=== PATIENT | female | born 1990 | race American Indian/Alaskan Native ===

== ENCOUNTER 2019-07-17 13:53 | Inpatient (IN) | payer MEDICAID, OTHER ==
[2019-07-17] MEDS ORDERED: SODIUM CHLORIDE 0.9% 1000 ML 2,000 ML ONE ×2 (14:19→19:27)
[2019-07-17] MEDS ORDERED: CEFEPIME/NS 2 GM/100 ML 2 GM/100 ML BAG IV ONE (14:25)
[2019-07-17] MEDS ORDERED: VANCOMYCIN/NS 1 GM/250 ML 1 GM/250 ML BAG IV ONE (14:25)
[2019-07-17] MEDS ORDERED: SODIUM CHLORIDE 0.9% 1000 ML 1,000 ML IV ONE ×2 (14:26)
[2019-07-17] MEDS ORDERED: EPINEPHrine 1:10,000 1 MG/10 ML SYRINGE ONE (14:30)
[2019-07-17] MEDS ORDERED: DOPamine/D5W 800 MG/250 ML DRIP IV ONE (14:30)
[2019-07-17] MEDS ORDERED: SODIUM BICARBONATE 2 MEQ/2 ML SYRINGE ONE (14:30)
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
--- NOTE | 2019-07-17 15:10 | XRay Report ---
CHEST 1 VIEW INDICATION: post-intubation. COMPARISON: None FINDINGS: SUPPORT DEVICES: Endotracheal tubes in good position. Nasogastric tube appears has tip below diaphrag m. HEART / MEDIASTINUM: No significant abnormality. LUNGS / PLEURA: Bronchovascular markings are prominent. No significant pulmonary or pleural abnormali ty. No pneumothorax. ADDITIONAL FINDINGS: IMPRESSION: 1. No acute cardiopulmonary disease Signer Name: Apolinar Nielsen MD Signed: 07/17/2019 3:05 PM Workstation Name: [id number]
[2019-07-17 15:47] LABS: ABG Base Excess -4.2 mmol/L (-2.0-3.0); ABG HCO3 25.7 mmol/L (20.0-26.0); ABG Methemoglobin 0.5 % (0.0-1.5); ABG Oxygen Saturation 98.8 % (95.0-99.0); ABG PO2 174.7 mm Hg (80.0-90.0)
[2019-07-17 15:49] LABS: ABG PH 7.147 pH Units (7.350-7.450)
[2019-07-17] MEDS ORDERED: VANCOMYCIN 2,000 MG in SODIUM CHLORIDE 0.9% 500 ML 500 ML IV ONE (16:00)
[2019-07-17 16:02] LABS: Mean Corpuscular HGB Conc 29 % (30-34); Platelet Count 208 K/mm3 (140-440); Red Blood Count 5.66 M/mm3 (3.65-5.03); Red Cell Distribution Width 18.3 % (13.2-15.2)
[2019-07-17 16:16] LABS: Hematocrit 38.1 % (30.3-42.9); Hemoglobin 11.1 gm/dl (10.1-14.3); Mean Corpuscular Volume 67 fl (79-97)
[2019-07-17 16:26] LABS: Alanine Aminotransferase 57 units/L (7-56); Albumin 3.8 g/dL (3.9-5); BUN/Creatinine Ratio 13; Blood Urea Nitrogen 14 mg/dL (7-17); Calcium 8.1 mg/dL (8.4-10.2); Hemolysis Index 22
[2019-07-17] MEDS ORDERED: SODIUM CHLORIDE 0.9% 1000 ML IV SOLN IV ONE (16:26)
[2019-07-17 16:45] LABS: Bacteria,Urine 2+ /HPF (Negative); Bilirubin,Urine NEG (Negative); Blood,Urine MOD (Negative); Color,Urine Yellow (Yellow); Hyaline Casts,Urine 1 /LPF; Mucus,Urine FEW /HPF; Urobilinogen,Urine < 2.0 mg/dL (<2.0)
[2019-07-17 16:56] LABS: Anisocytosis 1+; Hypochromasia 1+; Total Cells Counted 100
--- NOTE | 2019-07-17 17:59 | Cat Scan Report ---
CT HEAD WITHOUT CONTRAST HISTORY: AMS COMPARISON: None TECHNIQUE: CT imaging of the head was performed in the axial, sagittal, and coronal projections and bone algori thm in axial projection in the soft tissue algorithm. All CT scans at this location are performed using CT dose reduction for ALARA by means of automated e xposure control. CONTRAST: None. FINDINGS: Cerebral and Cerebellar Hemispheres: No evidence of mass or mass effect. No midline shift. No acute hemorrhage. No acute cortical infarction. No extra-axial fluid collection. Ventricles: Normal in size and configuration for age. Osseous Structures: No significant abnormality. Visualized Paranasal Sinuses: No significant abnormality. Additional Findings: None IMPRESSION: 1. No acute intracranial abnormality. NOTE: Acute infarct may not be visible by noncontrast CT. Signer Name: Apolinar Nielsen MD Signed: 07/17/2019 5:55 PM Workstation Name: [id number]
--- NOTE | 2019-07-17 18:06 | Cat Scan Report ---
Exam: CT cervical spine History: fall; Technique: Contiguous thin cut axial images obtained through the cervical spine. Sagittal and herrera l reconstructions performed by the technologist. All CT scans at this location are performed using CT dose reduction for ALARA by means of automated exposure control. Findings: No priors. There is no evidence of fracture or traumatic subluxation. No vertebral compression fracture is seen. Prevertebral space is normal. In the transverse images, no fracture is seen involving the bony canal . Vertebral bodies are normal in height and alignment. Intervertebral disc spaces are well-maintained. No significant degenerative change seen in the uncinate or facet joints. No significant canal stenosi s or osseous foraminal narrowing. Surrounding soft tissues are grossly normal. Endotracheal tube and nasogastric tube are seen. Impression: No signs of acute bony trauma to the cervical spine. Signer Name: Elodia Castro MD Signed: 07/17/2019 6:01 PM Workstation Name: [id number]
--- NOTE | 2019-07-17 18:21 | Cat Scan Report ---
CTA of the chest with 3D Reconstruction Indication: ,sob Technique: TECHNIQUE: Axial CT images were obtained through the chest after injection of 100 cc of Omnipaque 350 IV contrast. 3 plane MIP reconstructions were produced. All CT scans at this location are performed using CT dose reduction for ALARA by means of automated exposure control. COMPARISON: None Automatic exposure control was utilized in an attempt to reduce radiation dose. Findings: Pulmonary arteries: The main pulmonary artery and proximal right and left pulmonary artery branches f ill satisfactorily with contrast. Distal pulmonary artery branches are not well opacified. No pulmona ry embolus is seen within the limits of this study. Lungs: There is patchy airspace consistent opacity in the upper lobes bilaterally. There is airspace consolidation in the medial lower lobes bilaterally. Endotracheal tube is in satisfactory position ra diographically. Nasogastric tube which descends into the stomach. No pneumothorax is seen. Mediastinum: Heart size is normal. No adenopathy is seen. Aorta: Normal in diameter. No dissection seen. Impression: No pulmonary embolus is seen. The aorta is normal in diameter. There is no dissection There are bilateral airspace opacities with patchy airspace opacities in the upper lung zones and con solidation in the medial lower lobes. This likely represents edema and atelectasis. Possibility of tang perimposed pneumonia is considered but felt to be less likely. Signer Name: Elmer Epperson MD Signed: 07/17/2019 6:17 PM Workstation Name: [id number]
[2019-07-17 19:25] LABS: Amphetamine Screen,Urine PRESUMPTIVE NEGATIVE; Benzodiazepines Screen,Urine PRESUMPTIVE NEGATIVE; Cocaine Screen,Urine PRESUMPTIVE NEGATIVE; Methadone Screen,Urine PRESUMPTIVE NEGATIVE; Opiate Screen,Urine PRESUMPTIVE NEGATIVE
[2019-07-17 19:36] LABS: Cannabinoid Screen,Urine PRESUMPTIVE NEGATIVE
[2019-07-17] MEDS ORDERED: KETOROLAC 30 MG/1 ML INJ IV PRN (20:19)
[2019-07-17] MEDS ORDERED: MORPHINE 2 MG/1 ML INJ IV PRN (20:19)
[2019-07-17] MEDS ORDERED: LIPASE 10,500/PROTEASE 25,000/AMYLASE 43,750 (UNITS) DR CAP FEEDTUBE PRN (20:19)
[2019-07-17] MEDS ORDERED: METOCLOPRAMIDE 10 MG/2 ML INJ IV PRN (20:19)
[2019-07-17] MEDS ORDERED: SIMPLE SYRUP 15 ML FEEDTUBE PRN ×2 (20:19)
[2019-07-17] MEDS ORDERED: DEXTROSE 50% IN WATER (25GM) 50 ML SYRINGE IV PRN (20:19)
[2019-07-17] MEDS ORDERED: ALBUTEROL 2.5 MG/3 ML NEBU IH PRN (20:19)
[2019-07-17] MEDS ORDERED: ONDANSETRON 4 MG/2 ML INJ IV PRN (20:19)
[2019-07-17] MEDS ORDERED: SODIUM BICARBONATE 325 MG TAB FEEDTUBE PRN (20:19)
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
[2019-07-17] MEDS ORDERED: hydrALAZINE 20 MG/1 ML INJ IV PRN (20:26)
[2019-07-17] MEDS ORDERED: hydrALAZINE 20 MG/1 ML INJ ONE (20:45)
[2019-07-17] MEDS ORDERED: VANCOMYCIN PHARMACY TO DOSE IV SCH (21:00)
[2019-07-17] MEDS ORDERED: HEPARIN 5,000 UNIT/1 ML VIAL SUB-Q SCH (22:00)
[2019-07-17 22:19] LABS: ABG Base Excess 1.1 mmol/L (-2.0-3.0); ABG HCO3 26.7 mmol/L (20.0-26.0); ABG Methemoglobin 0.6 % (0.0-1.5); ABG Oxygen Saturation 97.7 % (95.0-99.0); ABG PCO2 46.6 mm Hg; ABG PH 7.375 pH Units (7.350-7.450); ABG PO2 104.1 mm Hg (80.0-90.0)
[2019-07-17] MEDS: BUDESONIDE 0.5 MG/2 ML NEBU IH SCH (22:20)
[2019-07-17] MEDS: IPRATROPIUM/ALBUTEROL SULFATE 3 ML AMPUL.NEB IH SCH (22:20)
[2019-07-17] MEDS: ENOXAPARIN 40 MG/0.4 ML INJ SUB-Q SCH (23:25)
[2019-07-17] MEDS: FAMOTIDINE 20 MG/2 ML INJ IV SCH (23:25)
[2019-07-17] MEDS: methylPREDNISolone Sod Succinate 125 MG/2 ML INJ IV SCH (23:25)
[2019-07-17] MEDS: CEFEPIME/NS 2 GM/100 ML 2 GM/100 ML BAG IV SCH (23:26)
[2019-07-17] MEDS: NICOTINE 21 MG/24 HR PATCH TD SCH (23:26)
[2019-07-18] MEDS: IPRATROPIUM/ALBUTEROL SULFATE 3 ML AMPUL.NEB IH SCH ×5 (02:53→20:36)
[2019-07-18 04:16] LABS: Mean Corpuscular HGB Conc 30 % (30-34); Platelet Count 188 K/mm3 (140-440); Red Blood Count 5.68 M/mm3 (3.65-5.03); Red Cell Distribution Width 17.7 % (13.2-15.2)
[2019-07-18 04:29] LABS: Alanine Aminotransferase 45 units/L (7-56); Albumin 3.5 g/dL (3.9-5); BUN/Creatinine Ratio 13; Blood Urea Nitrogen 10 mg/dL (7-17); Calcium 7.8 mg/dL (8.4-10.2); Hemolysis Index 1
[2019-07-18 04:38] LABS: Hematocrit 37.3 % (30.3-42.9); Mean Corpuscular Volume 66 fl (79-97)
[2019-07-18 04:41] LABS: ABG Base Excess 3.1 mmol/L (-2.0-3.0); ABG HCO3 29.3 mmol/L (20.0-26.0); ABG Methemoglobin 0.6 % (0.0-1.5); ABG Oxygen Saturation 97.1 % (95.0-99.0); ABG PCO2 52.3 mm Hg; ABG PH 7.366 pH Units (7.350-7.450); ABG PO2 91.3 mm Hg (80.0-90.0)
[2019-07-18 05:18] LABS: Basophils % (Manual) 0 % (0.0-1.8); Eosinophils % (Manual) 0 % (0.0-4.3); Monocytes % (Manual) 0 % (0.0-7.3); Total Cells Counted 100
[2019-07-18 05:19] LABS: Anisocytosis 1+; Hypochromasia 1+; Platelet Estimate Consistent w Auto
[2019-07-18] MEDS: methylPREDNISolone Sod Succinate 125 MG/2 ML INJ IV SCH (05:25)
[2019-07-18] MEDS: INSULIN LISPRO 100 UNIT/ML SUB-Q SCH ×3 (07:30→18:00)
[2019-07-18] MEDS: BUDESONIDE 0.5 MG/2 ML NEBU IH SCH ×3 (07:58→20:36)
[2019-07-18] MEDS ORDERED: IPRATROPIUM/ALBUTEROL SULFATE 3 ML AMPUL.NEB IH SCH ×2 (08:00)
[2019-07-18] MEDS: VANCOMYCIN 2,000 MG in SODIUM CHLORIDE 0.9% 500 ML 500 ML IV SCH ×2 (08:33→20:00)
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
[2019-07-18] MEDS ORDERED: LORazepam 2 MG/ML VIAL IV ONE (09:17)
[2019-07-18] MEDS ORDERED: LORazepam 2 MG/ML VIAL ONE (09:18)
[2019-07-18] MEDS: FAMOTIDINE 20 MG/2 ML INJ IV SCH ×2 (09:22→21:44)
[2019-07-18] MEDS ORDERED: LORazepam 2 MG/ML VIAL IV PRN (10:01)
[2019-07-18] MEDS: NICOTINE 21 MG/24 HR PATCH TD SCH (10:27)
[2019-07-18] MEDS: niCARdipine 50 MG in SODIUM CHLORIDE 0.9% 250ML 230 ML IV SCH ×2 (11:56→23:16)
--- NOTE | 2019-07-18 13:35 | Electroencephalogram Report ---
Electroencephalogram EEG Date of exam: 07/18/19 History: Patient is a 29-year-old woman with a history of asthma, who was found at unresponsive at home with agonal respirations. Patient was seen by EMS and transferred to [facility], after which she had a cardiac arrest for 10 minutes prior to returning to spontaneous circulation. Description: DESCRIPTION OF THE PROCEDURE: Electrodes were applied using Paste technique in positions dictated by International 10-20 system of placement. In addition to EEG data EKG and eye movements were recorded. DESCRIPTION OF ACTIVITY: At the onset of this recording, the patient is lying supine. In the background we note a 4-5 Hz delta and theta activity that has an amplitude ranging 20-30uV. Additional low voltage rhythmic delta activity occurs at the anterior head regions bilaterally. There are no asymmetries in amplitude or frequency between hemispheres. Patient noted to have intermittent facial jerking movements during EEG, however this did not correlate with any evidence of electrographic seizures. Intermittent photic stimulation was not performed. Hyperventilation was not performed. EEG Impression: 1) Generalized slowing. 2) No seizures or epileptiform discharges 3) Patient noted to have intermittent mild jerking movements of the face, however this did not correlate with any electrographic seizures, and is more likely due to myoclonus post anoxic brain injury. CLINICAL INTERPRETATION: This routine video EEG, performed is abnormal secondary to above findings and is consistent with bi-hemispheric dysfunction and encephalopathy. The above described finding of diffuse slowing is etiologically non-specific and similar findings have been reported in cases of toxic, metabolic, hypoxic ischemic, infectious, medication, sleep deprivation, dementia, post-ictal state, and other causes of diffuse and multifocal encephalopathy.
[2019-07-18] MEDS ORDERED: ETOMIDATE 20 MG/10 ML INJ IV ONE (13:38)
[2019-07-18] MEDS ORDERED: SUCCINYLCHOLINE CHLORIDE 200 MG/10 ML INJ MDV ONE (13:38)
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
[2019-07-18] MEDS ORDERED: levETIRAcetam 1,000 MG in DEXTROSE 5% IN WATER 100 ML IV SCH ×2 (13:45→22:00)
[2019-07-18] MEDS: VALSARTAN 40 MG TAB PO SCH ×2 (13:50→21:43)
--- NOTE | 2019-07-18 14:08 | XRay Report ---
ABDOMEN 1 VIEW(S) INDICATION / CLINICAL INFORMATION: gastric tube placement. COMPARISON: None available. FINDINGS: TUBES / LINES: The tip of the NG tube projects over the body the stomach. BOWEL GAS PATTERN/EXTRALUMINAL GAS: No significant abnormality. No pneumatosis or secondary signs of free air. ADDITIONAL FINDINGS: No significant additional findings. IMPRESSION: 1. NG tube tip projects over the body of the stomach. Signer Name: Garcia Giraldo MD Signed: 07/18/2019 2:04 PM Workstation Name: [email or web address]
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
[2019-07-18] MEDS: CEFEPIME/NS 2 GM/100 ML 2 GM/100 ML BAG IV SCH ×3 (14:29→21:41)
[2019-07-18] MEDS: levETIRAcetam 1,000 MG in DEXTROSE 5% IN WATER 100 ML IV SCH ×2 (17:00→23:02)
[2019-07-18] MEDS: SODIUM CHLORIDE 0.9% 1000 ML 1,000 ML IV SCH (18:00)
[2019-07-18] MEDS: ENOXAPARIN 40 MG/0.4 ML INJ SUB-Q SCH (21:42)
[2019-07-19] MEDS ORDERED: LORazepam 2 MG/ML VIAL IV ONE (00:50)
[2019-07-19] MEDS: IPRATROPIUM/ALBUTEROL SULFATE 3 ML AMPUL.NEB IH SCH ×4 (02:07→20:08)
[2019-07-19 05:31] LABS: ABG Base Excess 3.8 mmol/L (-2.0-3.0); ABG HCO3 28.1 mmol/L (20.0-26.0); ABG Methemoglobin 0.5 % (0.0-1.5); ABG PCO2 41.3 mm Hg; ABG PH 7.451 pH Units (7.350-7.450); ABG PO2 75.6 mm Hg (80.0-90.0)
[2019-07-19] MEDS: CEFEPIME/NS 2 GM/100 ML 2 GM/100 ML BAG IV SCH (05:40)
[2019-07-19] MEDS: niCARdipine 50 MG in SODIUM CHLORIDE 0.9% 250ML 230 ML IV SCH (06:24)
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
[2019-07-19] MEDS: INSULIN LISPRO 100 UNIT/ML SUB-Q SCH ×4 (07:11→18:00)
[2019-07-19] MEDS: BUDESONIDE 0.5 MG/2 ML NEBU IH SCH ×2 (07:45→20:08)
[2019-07-19] MEDS: VANCOMYCIN 2,000 MG in SODIUM CHLORIDE 0.9% 500 ML 500 ML IV SCH (08:22)
[2019-07-19] MEDS: SODIUM CHLORIDE 0.9% 1000 ML 1,000 ML IV SCH (08:22)
[2019-07-19] MEDS: FAMOTIDINE 20 MG/2 ML INJ IV SCH ×2 (09:01→21:16)
[2019-07-19] MEDS: NICOTINE 21 MG/24 HR PATCH TD SCH (09:01)
--- NOTE | 2019-07-19 09:43 | XRay Report ---
ABDOMEN 1 VIEW(S) INDICATION / CLINICAL INFORMATION: ogt placement. COMPARISON: None available. FINDINGS: TUBES / LINES: Esophagogastric tube tip projects at the level of the body of the stomach. BOWEL GAS PATTERN/EXTRALUMINAL GAS: No significant abnormality. No pneumatosis or secondary signs of free air. ADDITIONAL FINDINGS: No significant additional findings. IMPRESSION: 1. No acute abnormality. Signer Name: Elmer Epperson MD Signed: 07/19/2019 9:38 AM Workstation Name: [id number]
--- NOTE | 2019-07-19 09:57 | Progress Note ---
Assessment and Plan 29 y/o female with cardiac arrest, asystole, exact etiology unknown now on vent support. 1. Stop all sedation 2. Attempt extubation when mental status allows. 3. Stop steroids 4. Neurology saw and I appreciate their recs. 5. Guarded prognosis CCt 31 minutes. Subjective Date of service: 07/19/19 Interval history: No acute events. Eyes open today. Still not tracking, still not following commands. No family present at the bedside. Getting IV access placed. To large for MRI table. Objective Vital Signs - 12hr 07/18/19 07/18/19 07/18/19 22:00 22:11 22:21 Temperature Pulse Rate 107 H 121 H 125 H Pulse Rate [ Anterior Bilateral Throughout] Respiratory 21 25 H 26 H Rate Respiratory Rate [Anterior Bilateral Throughout] Blood Pressure 165/105 165/105 172/114 O2 Sat by Pulse 99 98 Oximetry 07/18/19 07/18/19 07/18/19 22:30 22:41 22:51 Temperature Pulse Rate 125 H 124 H 126 H Pulse Rate [ Anterior Bilateral Throughout] Respiratory 28 H 22 27 H Rate Respiratory Rate [Anterior Bilateral Throughout] Blood Pressure 165/108 165/108 170/110 O2 Sat by Pulse 97 99 98 Oximetry 07/18/19 07/18/19 07/18/19 23:00 23:11 23:21 Temperature Pulse Rate 131 H 129 H 134 H Pulse Rate [ Anterior Bilateral Throughout] Respiratory 31 H 31 H 37 H Rate Respiratory Rate [Anterior Bilateral Throughout] Blood Pressure 179/111 179/111 167/115 O2 Sat by Pulse 97 98 97 Oximetry 07/18/19 07/18/19 07/18/19 23:30 23:41 23:43 Temperature 99.2 F Pulse Rate 138 H 141 H Pulse Rate [ Anterior Bilateral Throughout] Respiratory 31 H 30 H Rate Respiratory Rate [Anterior Bilateral Throughout] Blood Pressure 169/93 169/93 O2 Sat by Pulse 97 98 Oximetry 07/18/19 07/19/19 07/19/19 23:51 00:00 00:01 Temperature Pulse Rate 134 H 139 H 125 H Pulse Rate [ Anterior Bilateral Throughout] Respiratory 29 H 24 Rate Respiratory Rate [Anterior Bilateral Throughout] Blood Pressure 175/97 131/62 O2 Sat by Pulse 98 95 Oximetry 07/19/19 07/19/19 07/19/19 00:11 00:21 00:30 Temperature Pulse Rate 135 H 137 H 140 H Pulse Rate [ Anterior Bilateral Throughout] Respiratory 25 H 9 L 15 Rate Respiratory Rate [Anterior Bilateral Throughout] Blood Pressure 131/62 177/84 174/90 O2 Sat by Pulse 98 98 97 Oximetry 07/19/19 07/19/19 07/19/19 00:35 00:41 00:51 Temperature Pulse Rate 140 H 141 H 142 H Pulse Rate [ Anterior Bilateral Throughout] Respiratory 20 17 Rate Respiratory Rate [Anterior Bilateral Throughout] Blood Pressure 174/90 174/90 166/90 O2 Sat by Pulse 98 96 98 Oximetry 07/19/19 07/19/19 07/19/19 01:00 01:11 01:21 Temperature Pulse Rate 141 H 130 H 137 H Pulse Rate [ Anterior Bilateral Throughout] Respiratory 16 23 20 Rate Respiratory Rate [Anterior Bilateral Throughout] Blood Pressure 161/101 161/101 131/67 O2 Sat by Pulse 94 97 97 Oximetry 07/19/19 07/19/19 07/19/19 01:30 01:41 01:51 Temperature Pulse Rate 118 H 116 H 116 H Pulse Rate [ Anterior Bilateral Throughout] Respiratory 20 24 24 Rate Respiratory Rate [Anterior Bilateral Throughout] Blood Pressure 117/55 117/55 115/59 O2 Sat by Pulse 95 97 98 Oximetry 07/19/19 07/19/19 07/19/19 02:00 02:07 02:11 Temperature Pulse Rate 114 H 131 H Pulse Rate [ 129 H Anterior Bilateral Throughout] Respiratory 24 12 Rate Respiratory 24 Rate [Anterior Bilateral Throughout] Blood Pressure 117/57 115/59 O2 Sat by Pulse 95 95 Oximetry 07/19/19 07/19/19 07/19/19 02:21 02:30 02:41 Temperature Pulse Rate 119 H 115 H 115 H Pulse Rate [ Anterior Bilateral Throughout] Respiratory 24 24 24 Rate Respiratory Rate [Anterior Bilateral Throughout] Blood Pressure 123/64 109/64 109/64 O2 Sat by Pulse 97 98 98 Oximetry 07/19/19 07/19/19 07/19/19 02:51 02:59 03:00 Temperature 99.3 F Pulse Rate 114 H 116 H Pulse Rate [ Anterior Bilateral Throughout] Respiratory 24 24 Rate Respiratory Rate [Anterior Bilateral Throughout] Blood Pressure 121/73 123/71 O2 Sat by Pulse 98 99 Oximetry 07/19/19 07/19/19 07/19/19 03:11 03:21 03:30 Temperature Pulse Rate 115 H 115 H 113 H Pulse Rate [ Anterior Bilateral Throughout] Respiratory 24 24 24 Rate Respiratory Rate [Anterior Bilateral Throughout] Blood Pressure 123/71 120/74 120/71 O2 Sat by Pulse 99 100 Oximetry 07/19/19 07/19/19 07/19/19 03:41 03:51 04:00 Temperature Pulse Rate 115 H 116 H 139 H Pulse Rate [ Anterior Bilateral Throughout] Respiratory 24 24 Rate Respiratory Rate [Anterior Bilateral Throughout] Blood Pressure 120/71 121/73 O2 Sat by Pulse 98 98 Oximetry 07/19/19 07/19/19 07/19/19 04:01 04:11 04:21 Temperature Pulse Rate 129 H 117 H 116 H Pulse Rate [ Anterior Bilateral Throughout] Respiratory 19 24 24 Rate Respiratory Rate [Anterior Bilateral Throughout] Blood Pressure 144/98 144/98 135/91 O2 Sat by Pulse 96 97 97 Oximetry 07/19/19 07/19/19 07/19/19 04:30 04:33 04:41 Temperature Pulse Rate 113 H 116 H 118 H Pulse Rate [ Anterior Bilateral Throughout] Respiratory 24 24 Rate Respiratory Rate [Anterior Bilateral Throughout] Blood Pressure 121/75 121/75 135/91 O2 Sat by Pulse 97 99 98 Oximetry 07/19/19 07/19/19 07/19/19 04:50 05:00 05:11 Temperature Pulse Rate 117 H 116 H 117 H Pulse Rate [ Anterior Bilateral Throughout] Respiratory 24 14 24 Rate Respiratory Rate [Anterior Bilateral Throughout] Blood Pressure 121/75 122/73 124/74 O2 Sat by Pulse 98 96 98 Oximetry 07/19/19 07/19/19 07/19/19 05:21 05:31 05:41 Temperature Pulse Rate 114 H 132 H 135 H Pulse Rate [ Anterior Bilateral Throughout] Respiratory 24 14 26 H Rate Respiratory Rate [Anterior Bilateral Throughout] Blood Pressure 122/76 148/103 122/76 O2 Sat by Pulse 98 94 97 Oximetry 07/19/19 07/19/19 07/19/19 05:51 06:00 06:11 Temperature Pulse Rate 133 H 136 H 137 H Pulse Rate [ Anterior Bilateral Throughout] Respiratory Rate Respiratory Rate [Anterior Bilateral Throughout] Blood Pressure 163/94 158/95 148/103 O2 Sat by Pulse 97 96 98 Oximetry 07/19/19 07/19/19 07/19/19 06:21 06:30 06:41 Temperature Pulse Rate 138 H 136 H 139 H Pulse Rate [ Anterior Bilateral Throughout] Respiratory Rate Respiratory Rate [Anterior Bilateral Throughout] Blood Pressure 163/88 166/106 166/106 O2 Sat by Pulse 98 96 98 Oximetry 07/19/19 07/19/19 07/19/19 06:51 07:01 07:11 Temperature Pulse Rate 137 H 133 H 136 H Pulse Rate [ Anterior Bilateral Throughout] Respiratory Rate Respiratory Rate [Anterior Bilateral Throughout] Blood Pressure 141/79 148/82 148/82 O2 Sat by Pulse 97 96 97 Oximetry 07/19/19 07/19/19 07/19/19 07:21 07:31 07:41 Temperature Pulse Rate 138 H 137 H 140 H Pulse Rate [ Anterior Bilateral Throughout] Respiratory Rate Respiratory Rate [Anterior Bilateral Throughout] Blood Pressure 149/113 159/111 149/113 O2 Sat by Pulse 97 98 97 Oximetry 07/19/19 07/19/19 07/19/19 07:45 07:51 08:00 Temperature 100.0 F H Pulse Rate 130 H 139 H 120 H Pulse Rate [ 126 H Anterior Bilateral Throughout] Respiratory Rate Respiratory 33 H Rate [Anterior Bilateral Throughout] Blood Pressure 170/96 170/96 132/64 O2 Sat by Pulse 98 98 98 Oximetry 07/19/19 07/19/19 07/19/19 08:11 08:21 08:30 Temperature Pulse Rate 138 H 140 H 141 H Pulse Rate [ Anterior Bilateral Throughout] Respiratory Rate Respiratory Rate [Anterior Bilateral Throughout] Blood Pressure 159/111 151/95 131/106 O2 Sat by Pulse 96 96 95 Oximetry 07/19/19 07/19/19 07/19/19 08:41 08:51 09:01 Temperature Pulse Rate 141 H 139 H 139 H Pulse Rate [ Anterior Bilateral Throughout] Respiratory Rate Respiratory Rate [Anterior Bilateral Throughout] Blood Pressure 131/106 131/106 131/106 O2 Sat by Pulse Oximetry 07/19/19 07/19/19 07/19/19 09:11 09:21 09:30 Temperature Pulse Rate 139 H 132 H 135 H Pulse Rate [ Anterior Bilateral Throughout] Respiratory Rate Respiratory Rate [Anterior Bilateral Throughout] Blood Pressure 131/106 151/93 148/97 O2 Sat by Pulse Oximetry 07/19/19 09:41 Temperature Pulse Rate 136 H Pulse Rate [ Anterior Bilateral Throughout] Respiratory Rate Respiratory Rate [Anterior Bilateral Throughout] Blood Pressure 148/97 O2 Sat by Pulse Oximetry Constitutional: comatose Eyes: non-icteric ENT: other (orally intubated and sedated.) Neck: supple Effort: normal Ascultation: Bilateral: diminished breath sounds Percussion: Bilateral: not dull Cardiovascular: regular rate and rhythm Gastrointestinal: normoactive bowel sounds, soft, non-tender Neurologic: unable to assess CBC and BMP: 07/18/19 03:35 07/18/19 03:35 ABG, PT/INR, D-dimer: ABG ABG pH 7.451 pH Units (7.350-7.450) H 07/19/19 05:00 ABG pCO2 41.3 mm Hg 07/19/19 05:00 ABG pO2 75.6 mm Hg (80.0-90.0) L 07/19/19 05:00 ABG O2 Saturation 97.0 % (95.0-99.0) 07/19/19 05:00 Abnormal lab findings: Abnormal Labs 07/17/19 07/17/19 07/17/19 15:10 15:51 15:51 WBC 20.6 H RBC 5.66 H MCV 67 L MCH 20 L MCHC 29 L RDW 18.3 H Seg Neuts % (Manual) 84.0 H Lymphocytes % (Manual) 10.0 L Seg Neutrophils # Man 17.3 H Lymphocytes # (Manual) Basophils # (Manual) 0.2 H APTT 20.7 L ABG pH 7.147 L* ABG pO2 174.7 H ABG HCO3 ABG Base Excess -4.2 L ABG Hemoglobin 11.0 L Oxyhemoglobin 94.2 L Glucose POC Glucose Lactic Acid Calcium AST ALT Alkaline Phosphatase Albumin Urine WBC (Auto) Salicylates Acetaminophen 07/17/19 07/17/19 07/17/19 15:51 15:51 16:30 WBC RBC MCV MCH MCHC RDW Seg Neuts % (Manual) Lymphocytes % (Manual) Seg Neutrophils # Man Lymphocytes # (Manual) Basophils # (Manual) APTT ABG pH ABG pO2 ABG HCO3 ABG Base Excess ABG Hemoglobin Oxyhemoglobin Glucose 302 H POC Glucose Lactic Acid 4.70 H* Calcium 8.1 L AST 104 H ALT 57 H Alkaline Phosphatase 158 H Albumin 3.8 L Urine WBC (Auto) 12.0 H Salicylates Acetaminophen 07/17/19 07/17/19 07/17/19 18:20 18:20 18:20 WBC RBC MCV MCH MCHC RDW Seg Neuts % (Manual) Lymphocytes % (Manual) Seg Neutrophils # Man Lymphocytes # (Manual) Basophils # (Manual) APTT ABG pH ABG pO2 ABG HCO3 ABG Base Excess ABG Hemoglobin Oxyhemoglobin Glucose POC Glucose Lactic Acid 2.40 H* Calcium AST ALT Alkaline Phosphatase Albumin Urine WBC (Auto) Salicylates < 0.3 L Acetaminophen < 5.0 L 07/17/19 07/17/19 07/17/19 19:16 22:15 22:26 WBC RBC MCV MCH MCHC RDW Seg Neuts % (Manual) Lymphocytes % (Manual) Seg Neutrophils # Man Lymphocytes # (Manual) Basophils # (Manual) APTT ABG pH ABG pO2 104.1 H ABG HCO3 26.7 H ABG Base Excess ABG Hemoglobin 11.1 L Oxyhemoglobin Glucose POC Glucose 136 H Lactic Acid 2.40 H* Calcium AST ALT Alkaline Phosphatase Albumin Urine WBC (Auto) Salicylates Acetaminophen 07/18/19 07/18/19 07/18/19 03:35 03:35 04:28 WBC 21.9 H RBC 5.68 H MCV 66 L MCH 19 L MCHC RDW 17.7 H Seg Neuts % (Manual) 96.0 H Lymphocytes % (Manual) 4.0 L Seg Neutrophils # Man 21.0 H Lymphocytes # (Manual) 0.9 L Basophils # (Manual) APTT ABG pH ABG pO2 91.3 H ABG HCO3 29.3 H ABG Base Excess 3.1 H ABG Hemoglobin 10.9 L Oxyhemoglobin 94.9 L Glucose 157 H POC Glucose Lactic Acid Calcium 7.8 L AST 59 H ALT Alkaline Phosphatase Albumin 3.5 L Urine WBC (Auto) Salicylates Acetaminophen 07/18/19 07/18/19 07/19/19 12:04 18:09 00:04 WBC RBC MCV MCH MCHC RDW Seg Neuts % (Manual) Lymphocytes % (Manual) Seg Neutrophils # Man Lymphocytes # (Manual) Basophils # (Manual) APTT ABG pH ABG pO2 ABG HCO3 ABG Base Excess ABG Hemoglobin Oxyhemoglobin Glucose POC Glucose 171 H 136 H 120 H Lactic Acid Calcium AST ALT Alkaline Phosphatase Albumin Urine WBC (Auto) Salicylates Acetaminophen 07/19/19 05:00 WBC RBC MCV MCH MCHC RDW Seg Neuts % (Manual) Lymphocytes % (Manual) Seg Neutrophils # Man Lymphocytes # (Manual) Basophils # (Manual) APTT ABG pH 7.451 H ABG pO2 75.6 L ABG HCO3 28.1 H ABG Base Excess 3.8 H ABG Hemoglobin 11.3 L Oxyhemoglobin 94.6 L Glucose POC Glucose Lactic Acid Calcium AST ALT Alkaline Phosphatase Albumin Urine WBC (Auto) Salicylates Acetaminophen
[2019-07-19] MEDS: levETIRAcetam 1,000 MG in DEXTROSE 5% IN WATER 100 ML IV SCH ×2 (10:04→21:17)
[2019-07-19] MEDS: ACETAMINOPHEN 325 MG TAB PO PRN ×2 (10:04→16:00)
[2019-07-19] MEDS: VALSARTAN 40 MG TAB PO SCH ×2 (10:06→21:15)
--- NOTE | 2019-07-19 11:50 | Progress Note ---
Assessment and Plan Patient is a 29-year-old woman with a history of asthma, who became unresponsive, and was found by EMS to have agonal respirations, after which patient was brought to [facility]. Patient had a cardiac arrest lasting approximately 10 minutes prior to return of spontaneous circulation. According patient's clinical findings, she likely has anoxic brain injury due to cardiac arrest. Plan: 1. 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 -EEG: Generalized slowing, no seizures or epileptiform activity. -Patient noted to have intact brainstem reflexes, and is therefore not brain . Discussed prognosis with family at bedside. Given that patient is relatively young, and had a witnessed cardiac arrest during which CPR was initiated and continued, unclear prognosis at this point in time. -Noted to have mild intermittent facial jerk-like movements, which are more likely myoclonus and post anoxic period. -Continue Keppra 1000mg BID. - Recommend MRI brain. -Check CT head to rule out increased cerebral edema due to anoxic brain injury. -Continue supportive care per primary team and ICU teams. -Will sign off, as I am not covering neurology service over the weekend. Please consult neurologist covering the service over the weekend for further neurologic monitoring and management. Thank you for allowing me to take part in the care of this patient. Arsh Carson MD Neurology Subjective Date of service: 07/19/19 Principal diagnosis: Anoxic brain injury Interval history: No acute events overnight. Objective - Exam Narrative Exam: Patient is intubated and comatose. Intact pupillary, corneal, VOR, cough reflexes. Withdraws to pain in all extremities. 2+ reflexes throughout. - Vital Sign Vital Signs - 12hr 07/18/19 07/19/19 07/19/19 23:51 00:00 00:01 Temperature Pulse Rate 134 H 139 H 125 H Pulse Rate [ Anterior Bilateral Throughout] Respiratory 29 H 24 Rate Respiratory Rate [Anterior Bilateral Throughout] Blood Pressure 175/97 131/62 O2 Sat by Pulse 98 95 Oximetry 07/19/19 07/19/19 07/19/19 00:11 00:21 00:30 Temperature Pulse Rate 135 H 137 H 140 H Pulse Rate [ Anterior Bilateral Throughout] Respiratory 25 H 9 L 15 Rate Respiratory Rate [Anterior Bilateral Throughout] Blood Pressure 131/62 177/84 174/90 O2 Sat by Pulse 98 98 97 Oximetry 07/19/19 07/19/19 07/19/19 00:35 00:41 00:51 Temperature Pulse Rate 140 H 141 H 142 H Pulse Rate [ Anterior Bilateral Throughout] Respiratory 20 17 Rate Respiratory Rate [Anterior Bilateral Throughout] Blood Pressure 174/90 174/90 166/90 O2 Sat by Pulse 98 96 98 Oximetry 07/19/19 07/19/19 07/19/19 01:00 01:11 01:21 Temperature Pulse Rate 141 H 130 H 137 H Pulse Rate [ Anterior Bilateral Throughout] Respiratory 16 23 20 Rate Respiratory Rate [Anterior Bilateral Throughout] Blood Pressure 161/101 161/101 131/67 O2 Sat by Pulse 94 97 97 Oximetry 07/19/19 07/19/19 07/19/19 01:30 01:41 01:51 Temperature Pulse Rate 118 H 116 H 116 H Pulse Rate [ Anterior Bilateral Throughout] Respiratory 20 24 24 Rate Respiratory Rate [Anterior Bilateral Throughout] Blood Pressure 117/55 117/55 115/59 O2 Sat by Pulse 95 97 98 Oximetry 07/19/19 07/19/19 07/19/19 02:00 02:07 02:11 Temperature Pulse Rate 114 H 131 H Pulse Rate [ 129 H Anterior Bilateral Throughout] Respiratory 24 12 Rate Respiratory 24 Rate [Anterior Bilateral Throughout] Blood Pressure 117/57 115/59 O2 Sat by Pulse 95 95 Oximetry 07/19/19 07/19/19 07/19/19 02:21 02:30 02:41 Temperature Pulse Rate 119 H 115 H 115 H Pulse Rate [ Anterior Bilateral Throughout] Respiratory 24 24 24 Rate Respiratory Rate [Anterior Bilateral Throughout] Blood Pressure 123/64 109/64 109/64 O2 Sat by Pulse 97 98 98 Oximetry 07/19/19 07/19/19 07/19/19 02:51 02:59 03:00 Temperature 99.3 F Pulse Rate 114 H 116 H Pulse Rate [ Anterior Bilateral Throughout] Respiratory 24 24 Rate Respiratory Rate [Anterior Bilateral Throughout] Blood Pressure 121/73 123/71 O2 Sat by Pulse 98 99 Oximetry 07/19/19 07/19/19 07/19/19 03:11 03:21 03:30 Temperature Pulse Rate 115 H 115 H 113 H Pulse Rate [ Anterior Bilateral Throughout] Respiratory 24 24 24 Rate Respiratory Rate [Anterior Bilateral Throughout] Blood Pressure 123/71 120/74 120/71 O2 Sat by Pulse 99 100 Oximetry 02/07/19/19 07/19/19 03:41 03:51 04:00 Temperature Pulse Rate 115 H 116 H 139 H Pulse Rate [ Anterior Bilateral Throughout] Respiratory 24 24 Rate Respiratory Rate [Anterior Bilateral Throughout] Blood Pressure 120/71 121/73 O2 Sat by Pulse 98 98 Oximetry 07/19/19 07/19/19 07/19/19 04:01 04:11 04:21 Temperature Pulse Rate 129 H 117 H 116 H Pulse Rate [ Anterior Bilateral Throughout] Respiratory 19 24 24 Rate Respiratory Rate [Anterior Bilateral Throughout] Blood Pressure 144/98 144/98 135/91 O2 Sat by Pulse 96 97 97 Oximetry 07/19/19 07/19/19 07/19/19 04:30 04:33 04:41 Temperature Pulse Rate 113 H 116 H 118 H Pulse Rate [ Anterior Bilateral Throughout] Respiratory 24 24 Rate Respiratory Rate [Anterior Bilateral Throughout] Blood Pressure 121/75 121/75 135/91 O2 Sat by Pulse 97 99 98 Oximetry 07/19/19 07/19/19 07/19/19 04:50 05:00 05:11 Temperature Pulse Rate 117 H 116 H 117 H Pulse Rate [ Anterior Bilateral Throughout] Respiratory 24 14 24 Rate Respiratory Rate [Anterior Bilateral Throughout] Blood Pressure 121/75 122/73 124/74 O2 Sat by Pulse 98 96 98 Oximetry 07/19/19 07/19/19 07/19/19 05:21 05:31 05:41 Temperature Pulse Rate 114 H 132 H 135 H Pulse Rate [ Anterior Bilateral Throughout] Respiratory 24 14 26 H Rate Respiratory Rate [Anterior Bilateral Throughout] Blood Pressure 122/76 148/103 122/76 O2 Sat by Pulse 98 94 97 Oximetry 07/19/19 07/19/19 07/19/19 05:51 06:00 06:11 Temperature Pulse Rate 133 H 136 H 137 H Pulse Rate [ Anterior Bilateral Throughout] Respiratory Rate Respiratory Rate [Anterior Bilateral Throughout] Blood Pressure 163/94 158/95 148/103 O2 Sat by Pulse 97 96 98 Oximetry 07/19/19 07/19/19 07/19/19 06:21 06:30 06:41 Temperature Pulse Rate 138 H 136 H 139 H Pulse Rate [ Anterior Bilateral Throughout] Respiratory Rate Respiratory Rate [Anterior Bilateral Throughout] Blood Pressure 163/88 166/106 166/106 O2 Sat by Pulse 98 96 98 Oximetry 07/19/19 07/19/19 07/19/19 06:51 07:01 07:11 Temperature Pulse Rate 137 H 133 H 136 H Pulse Rate [ Anterior Bilateral Throughout] Respiratory Rate Respiratory Rate [Anterior Bilateral Throughout] Blood Pressure 141/79 148/82 148/82 O2 Sat by Pulse 97 96 97 Oximetry 07/19/19 07/19/19 07/19/19 07:21 07:31 07:41 Temperature Pulse Rate 138 H 137 H 140 H Pulse Rate [ Anterior Bilateral Throughout] Respiratory Rate Respiratory Rate [Anterior Bilateral Throughout] Blood Pressure 149/113 159/111 149/113 O2 Sat by Pulse 97 98 97 Oximetry 07/19/19 07/19/19 07/19/19 07:45 07:51 08:00 Temperature 100.0 F H Pulse Rate 130 H 139 H 120 H Pulse Rate [ 126 H Anterior Bilateral Throughout] Respiratory Rate Respiratory 33 H Rate [Anterior Bilateral Throughout] Blood Pressure 170/96 170/96 132/64 O2 Sat by Pulse 98 98 98 Oximetry 07/19/19 07/19/19 07/19/19 08:11 08:21 08:30 Temperature Pulse Rate 138 H 140 H 141 H Pulse Rate [ Anterior Bilateral Throughout] Respiratory Rate Respiratory Rate [Anterior Bilateral Throughout] Blood Pressure 159/111 151/95 131/106 O2 Sat by Pulse 96 96 95 Oximetry 07/19/19 07/19/19 07/19/19 08:41 08:51 09:01 Temperature Pulse Rate 141 H 139 H 139 H Pulse Rate [ Anterior Bilateral Throughout] Respiratory Rate Respiratory Rate [Anterior Bilateral Throughout] Blood Pressure 131/106 131/106 131/106 O2 Sat by Pulse Oximetry 07/19/19 07/19/19 07/19/19 09:11 09:21 09:30 Temperature Pulse Rate 139 H 132 H 135 H Pulse Rate [ Anterior Bilateral Throughout] Respiratory Rate Respiratory Rate [Anterior Bilateral Throughout] Blood Pressure 131/106 151/93 148/97 O2 Sat by Pulse Oximetry 07/19/19 07/19/19 07/19/19 09:41 09:51 10:00 Temperature Pulse Rate 136 H 117 H 136 H Pulse Rate [ Anterior Bilateral Throughout] Respiratory Rate Respiratory Rate [Anterior Bilateral Throughout] Blood Pressure 148/97 170/107 175/106 O2 Sat by Pulse Oximetry 07/19/19 07/19/19 07/19/19 10:06 10:11 10:21 Temperature Pulse Rate 139 H 138 H 136 H Pulse Rate [ Anterior Bilateral Throughout] Respiratory Rate Respiratory Rate [Anterior Bilateral Throughout] Blood Pressure 175/106 175/106 161/107 O2 Sat by Pulse 100 Oximetry 07/19/19 07/19/19 07/19/19 10:31 10:41 10:51 Temperature Pulse Rate 139 H 137 H 132 H Pulse Rate [ Anterior Bilateral Throughout] Respiratory Rate Respiratory Rate [Anterior Bilateral Throughout] Blood Pressure 167/98 167/98 191/98 O2 Sat by Pulse Oximetry 07/19/19 07/19/19 11:01 11:11 Temperature Pulse Rate 138 H 124 H Pulse Rate [ Anterior Bilateral Throughout] Respiratory Rate Respiratory Rate [Anterior Bilateral Throughout] Blood Pressure 184/91 184/91 O2 Sat by Pulse 98 98 Oximetry - General Apperance Constitutional: acutely ill - EENT EENT: ATNC, PERRL, mucous membranes moist - Respiratory Respiratory: decreased breath sounds - Cardiovascular Cardiovascular: regular rate, normal S1, normal S2 Extremities: no clubbing, cyanosis, no inflammation - Gastrointestinal Gastrointestinal: normoactive bowel sounds, soft, non-tender - Integumentary Integumentary: normal - Laboratory Findings CBC and BMP: 07/18/19 03:35 07/18/19 03:35 Abnormal Lab Findings: Abnormal Labs 07/17/19 07/17/19 07/17/19 15:10 15:51 15:51 WBC 20.6 H RBC 5.66 H MCV 67 L MCH 20 L MCHC 29 L RDW 18.3 H Seg Neuts % (Manual) 84.0 H Lymphocytes % (Manual) 10.0 L Seg Neutrophils # Man 17.3 H Lymphocytes # (Manual) Basophils # (Manual) 0.2 H APTT 20.7 L ABG pH 7.147 L* ABG pO2 174.7 H ABG HCO3 ABG Base Excess -4.2 L ABG Hemoglobin 11.0 L Oxyhemoglobin 94.2 L Glucose POC Glucose Lactic Acid Calcium AST ALT Alkaline Phosphatase Albumin Urine WBC (Auto) Salicylates Acetaminophen 07/17/19 07/17/19 07/17/19 15:51 15:51 16:30 WBC RBC MCV MCH MCHC RDW Seg Neuts % (Manual) Lymphocytes % (Manual) Seg Neutrophils # Man Lymphocytes # (Manual) Basophils # (Manual) APTT ABG pH ABG pO2 ABG HCO3 ABG Base Excess ABG Hemoglobin Oxyhemoglobin Glucose 302 H POC Glucose Lactic Acid 4.70 H* Calcium 8.1 L AST 104 H ALT 57 H Alkaline Phosphatase 158 H Albumin 3.8 L Urine WBC (Auto) 12.0 H Salicylates Acetaminophen 07/17/19 07/17/19 07/17/19 18:20 18:20 18:20 WBC RBC MCV MCH MCHC RDW Seg Neuts % (Manual) Lymphocytes % (Manual) Seg Neutrophils # Man Lymphocytes # (Manual) Basophils # (Manual) APTT ABG pH ABG pO2 ABG HCO3 ABG Base Excess ABG Hemoglobin Oxyhemoglobin Glucose POC Glucose Lactic Acid 2.40 H* Calcium AST ALT Alkaline Phosphatase Albumin Urine WBC (Auto) Salicylates < 0.3 L Acetaminophen < 5.0 L 07/17/19 07/17/19 07/17/19 19:16 22:15 22:26 WBC RBC MCV MCH MCHC RDW Seg Neuts % (Manual) Lymphocytes % (Manual) Seg Neutrophils # Man Lymphocytes # (Manual) Basophils # (Manual) APTT ABG pH ABG pO2 104.1 H ABG HCO3 26.7 H ABG Base Excess ABG Hemoglobin 11.1 L Oxyhemoglobin Glucose POC Glucose 136 H Lactic Acid 2.40 H* Calcium AST ALT Alkaline Phosphatase Albumin Urine WBC (Auto) Salicylates Acetaminophen 07/18/19 07/18/19 07/18/19 03:35 03:35 04:28 WBC 21.9 H RBC 5.68 H MCV 66 L MCH 19 L MCHC RDW 17.7 H Seg Neuts % (Manual) 96.0 H Lymphocytes % (Manual) 4.0 L Seg Neutrophils # Man 21.0 H Lymphocytes # (Manual) 0.9 L Basophils # (Manual) APTT ABG pH ABG pO2 91.3 H ABG HCO3 29.3 H ABG Base Excess 3.1 H ABG Hemoglobin 10.9 L Oxyhemoglobin 94.9 L Glucose 157 H POC Glucose Lactic Acid Calcium 7.8 L AST 59 H ALT Alkaline Phosphatase Albumin 3.5 L Urine WBC (Auto) Salicylates Acetaminophen 07/18/19 07/18/19 07/19/19 12:04 18:09 00:04 WBC RBC MCV MCH MCHC RDW Seg Neuts % (Manual) Lymphocytes % (Manual) Seg Neutrophils # Man Lymphocytes # (Manual) Basophils # (Manual) APTT ABG pH ABG pO2 ABG HCO3 ABG Base Excess ABG Hemoglobin Oxyhemoglobin Glucose POC Glucose 171 H 136 H 120 H Lactic Acid Calcium AST ALT Alkaline Phosphatase Albumin Urine WBC (Auto) Salicylates Acetaminophen 07/19/19 05:00 WBC RBC MCV MCH MCHC RDW Seg Neuts % (Manual) Lymphocytes % (Manual) Seg Neutrophils # Man Lymphocytes # (Manual) Basophils # (Manual) APTT ABG pH 7.451 H ABG pO2 75.6 L ABG HCO3 28.1 H ABG Base Excess 3.8 H ABG Hemoglobin 11.3 L Oxyhemoglobin 94.6 L Glucose POC Glucose Lactic Acid Calcium AST ALT Alkaline Phosphatase Albumin Urine WBC (Auto) Salicylates Acetaminophen
[2019-07-19] MEDS: HYDROmorphone 1 MG/1 ML INJ IV PRN ×2 (12:30→18:09)
[2019-07-19] MEDS: ENOXAPARIN 40 MG/0.4 ML INJ SUB-Q SCH (21:16)
--- NOTE | 2019-07-19 23:26 | Cat Scan Report ---
Head CT without intravenous contrast INDICATION: Respiratory failure COMPARISON: 07/17/2019 FINDINGS: The ventricles are unchanged in size and position. There is no hemorrhage or extra-axial fl uid collection. No focal infarct is seen. There is diffuse cerebral edema however with effacement of the sulci and loss of contreras-white interface consistent with global anoxia. No herniation is seen. Air- fluid level is seen in the right sphenoid sinus with mucosal thickening of the ethmoid air cells. End otracheal tube is in place. IMPRESSION: CT findings consistent with global anoxia. No hemorrhage or focal abnormality. Automated exposure control was utilized to diminish radiation dose Signer Name: Rich Dotson MD Signed: 07/19/2019 11:22 PM Workstation Name: [id number]
[2019-07-20] MEDS: IPRATROPIUM/ALBUTEROL SULFATE 3 ML AMPUL.NEB IH SCH ×4 (03:22→19:11)
[2019-07-20 05:02] LABS: ABG HCO3 28.9 mmol/L (20.0-26.0); ABG Methemoglobin 0.5 % (0.0-1.5); ABG Oxygen Saturation 97.3 % (95.0-99.0); ABG PCO2 49.3 mm Hg; ABG PH 7.385 pH Units (7.350-7.450); ABG PO2 94.4 mm Hg (80.0-90.0)
[2019-07-20] MEDS: INSULIN LISPRO 100 UNIT/ML SUB-Q SCH ×4 (06:19→18:34)
[2019-07-20] MEDS: SODIUM CHLORIDE 0.9% 1000 ML 1,000 ML IV SCH ×2 (06:53→15:25)
[2019-07-20] MEDS: ACETAMINOPHEN 325 MG TAB PO PRN (07:52)
[2019-07-20] MEDS: HYDROmorphone 1 MG/1 ML INJ IV PRN ×2 (07:53→15:31)
[2019-07-20] MEDS: BUDESONIDE 0.5 MG/2 ML NEBU IH SCH ×2 (08:45→19:11)
[2019-07-20] MEDS: FAMOTIDINE 20 MG/2 ML INJ IV SCH ×2 (09:02→21:56)
[2019-07-20] MEDS: NICOTINE 21 MG/24 HR PATCH TD SCH (09:03)
[2019-07-20] MEDS: VALSARTAN 40 MG TAB PO SCH ×2 (09:03→21:57)
--- NOTE | 2019-07-20 09:33 | Progress Note ---
Assessment and Plan 29 y/o female with cardiac arrest, asystole, exact etiology unknown now on vent support. 1. No sedation 2. Need to have family meeting as the likely gallegos of recovering is none 3. Continue supportive care 4. Poor prognosis. CCt 31 minutes. Subjective Date of service: 07/20/19 Principal diagnosis: Anoxic brain injury Interval history: Repeat Head CT shows diffuse cerebral edema, consistent with severe anoxic injury. Patient remains unresponsive. No further seizure like activity. No neurology covering this weekend. Objective Vital Signs - 12hr 07/19/19 07/19/19 07/19/19 21:30 21:41 21:51 Temperature Pulse Rate 89 86 84 Pulse Rate [ Anterior Bilateral Throughout] Pulse Rate [ From Monitor] Respiratory 24 24 24 Rate Respiratory Rate [Anterior Bilateral Throughout] Blood Pressure 121/76 121/76 119/74 O2 Sat by Pulse 97 97 97 Oximetry 07/19/19 07/19/19 07/19/19 22:25 22:30 22:41 Temperature Pulse Rate 95 H 96 H 83 Pulse Rate [ Anterior Bilateral Throughout] Pulse Rate [ From Monitor] Respiratory 16 26 H 24 Rate Respiratory Rate [Anterior Bilateral Throughout] Blood Pressure 119/74 133/87 133/87 O2 Sat by Pulse 97 97 Oximetry 07/19/19 07/19/19 07/19/19 22:51 23:00 23:11 Temperature Pulse Rate 86 88 94 H Pulse Rate [ Anterior Bilateral Throughout] Pulse Rate [ From Monitor] Respiratory 24 24 24 Rate Respiratory Rate [Anterior Bilateral Throughout] Blood Pressure 137/77 127/84 127/84 O2 Sat by Pulse 98 97 97 Oximetry 07/19/19 07/19/19 07/19/19 23:12 23:21 23:30 Temperature Pulse Rate 91 H 88 84 Pulse Rate [ Anterior Bilateral Throughout] Pulse Rate [ From Monitor] Respiratory 24 24 Rate Respiratory Rate [Anterior Bilateral Throughout] Blood Pressure 127/84 152/96 133/75 O2 Sat by Pulse 97 97 98 Oximetry 07/19/19 07/19/19 07/19/19 23:41 23:51 23:58 Temperature 99.8 F H Pulse Rate 84 86 Pulse Rate [ Anterior Bilateral Throughout] Pulse Rate [ From Monitor] Respiratory 24 24 Rate Respiratory Rate [Anterior Bilateral Throughout] Blood Pressure 133/75 126/76 O2 Sat by Pulse 98 98 Oximetry 07/20/19 07/20/19 07/20/19 00:00 00:10 00:21 Temperature Pulse Rate 86 88 88 Pulse Rate [ Anterior Bilateral Throughout] Pulse Rate [ 99 H From Monitor] Respiratory 24 24 24 Rate Respiratory Rate [Anterior Bilateral Throughout] Blood Pressure 127/76 119/74 118/70 O2 Sat by Pulse 98 100 98 Oximetry 07/20/19 07/20/19 07/20/19 00:30 00:41 00:51 Temperature Pulse Rate 88 83 85 Pulse Rate [ Anterior Bilateral Throughout] Pulse Rate [ From Monitor] Respiratory 24 24 24 Rate Respiratory Rate [Anterior Bilateral Throughout] Blood Pressure 123/82 123/82 123/82 O2 Sat by Pulse 97 98 98 Oximetry 07/20/19 07/20/19 07/20/19 01:00 01:11 01:21 Temperature Pulse Rate 83 84 85 Pulse Rate [ Anterior Bilateral Throughout] Pulse Rate [ From Monitor] Respiratory 24 24 24 Rate Respiratory Rate [Anterior Bilateral Throughout] Blood Pressure 133/80 133/80 133/80 O2 Sat by Pulse 99 98 98 Oximetry 07/20/19 07/20/19 07/20/19 01:30 01:41 01:51 Temperature Pulse Rate 104 H 110 H 107 H Pulse Rate [ Anterior Bilateral Throughout] Pulse Rate [ From Monitor] Respiratory 20 25 H 22 Rate Respiratory Rate [Anterior Bilateral Throughout] Blood Pressure 131/80 157/115 157/115 O2 Sat by Pulse 99 98 98 Oximetry 07/20/19 07/20/19 07/20/19 02:00 02:11 02:21 Temperature Pulse Rate 90 88 120 H Pulse Rate [ Anterior Bilateral Throughout] Pulse Rate [ From Monitor] Respiratory 24 24 21 Rate Respiratory Rate [Anterior Bilateral Throughout] Blood Pressure 141/88 141/88 141/88 O2 Sat by Pulse 97 98 97 Oximetry 07/20/19 07/20/19 07/20/19 02:31 02:41 02:51 Temperature Pulse Rate 111 H 125 H 98 H Pulse Rate [ Anterior Bilateral Throughout] Pulse Rate [ From Monitor] Respiratory 18 25 H Rate Respiratory Rate [Anterior Bilateral Throughout] Blood Pressure 141/88 168/103 168/99 O2 Sat by Pulse 98 98 Oximetry 07/20/19 07/20/19 07/20/19 03:00 03:11 03:15 Temperature 99.2 F Pulse Rate 98 H 101 H Pulse Rate [ Anterior Bilateral Throughout] Pulse Rate [ From Monitor] Respiratory 24 23 Rate Respiratory Rate [Anterior Bilateral Throughout] Blood Pressure 146/83 146/83 O2 Sat by Pulse 99 100 Oximetry 07/20/19 07/20/19 07/20/19 03:18 03:21 03:31 Temperature Pulse Rate 109 H 122 H 120 H Pulse Rate [ Anterior Bilateral Throughout] Pulse Rate [ From Monitor] Respiratory 11 L 25 H Rate Respiratory Rate [Anterior Bilateral Throughout] Blood Pressure 165/115 165/115 178/121 O2 Sat by Pulse 98 97 100 Oximetry 07/20/19 07/20/19 07/20/19 03:41 03:47 03:51 Temperature Pulse Rate 119 H 95 H Pulse Rate [ 111 H Anterior Bilateral Throughout] Pulse Rate [ From Monitor] Respiratory 10 L 25 H Rate Respiratory 24 Rate [Anterior Bilateral Throughout] Blood Pressure 178/121 168/110 O2 Sat by Pulse 97 99 Oximetry 07/20/19 07/20/19 07/20/19 04:00 04:11 04:21 Temperature Pulse Rate 117 H 91 H 96 H Pulse Rate [ Anterior Bilateral Throughout] Pulse Rate [ 99 H From Monitor] Respiratory 25 H 18 15 Rate Respiratory Rate [Anterior Bilateral Throughout] Blood Pressure 149/119 149/119 140/74 O2 Sat by Pulse 98 99 100 Oximetry 07/20/19 07/20/19 07/20/19 04:30 04:41 04:50 Temperature Pulse Rate 94 H 92 H 94 H Pulse Rate [ Anterior Bilateral Throughout] Pulse Rate [ From Monitor] Respiratory 24 24 24 Rate Respiratory Rate [Anterior Bilateral Throughout] Blood Pressure 147/88 147/88 140/83 O2 Sat by Pulse 100 100 100 Oximetry 07/20/19 07/20/19 07/20/19 05:00 05:11 05:21 Temperature Pulse Rate 92 H 95 H 104 H Pulse Rate [ Anterior Bilateral Throughout] Pulse Rate [ From Monitor] Respiratory 24 24 24 Rate Respiratory Rate [Anterior Bilateral Throughout] Blood Pressure 141/88 141/88 149/90 O2 Sat by Pulse 100 100 100 Oximetry 07/20/19 07/20/19 07/20/19 05:30 05:41 05:51 Temperature Pulse Rate 116 H 114 H 113 H Pulse Rate [ Anterior Bilateral Throughout] Pulse Rate [ From Monitor] Respiratory 21 22 31 H Rate Respiratory Rate [Anterior Bilateral Throughout] Blood Pressure 159/115 159/115 169/125 O2 Sat by Pulse 100 100 100 Oximetry 07/20/19 07/20/19 07/20/19 06:00 06:11 06:21 Temperature Pulse Rate 115 H 117 H 120 H Pulse Rate [ Anterior Bilateral Throughout] Pulse Rate [ From Monitor] Respiratory 18 19 26 H Rate Respiratory Rate [Anterior Bilateral Throughout] Blood Pressure 156/102 156/102 157/98 O2 Sat by Pulse 100 100 100 Oximetry 07/20/19 07/20/19 07/20/19 06:31 06:41 06:47 Temperature Pulse Rate 116 H 121 H 122 H Pulse Rate [ Anterior Bilateral Throughout] Pulse Rate [ From Monitor] Respiratory 13 32 H Rate Respiratory Rate [Anterior Bilateral Throughout] Blood Pressure 186/123 186/123 168/120 O2 Sat by Pulse 100 99 Oximetry 07/20/19 07/20/19 07/20/19 06:51 07:00 07:11 Temperature Pulse Rate 124 H 118 H 113 H Pulse Rate [ Anterior Bilateral Throughout] Pulse Rate [ From Monitor] Respiratory 16 25 H 16 Rate Respiratory Rate [Anterior Bilateral Throughout] Blood Pressure 183/114 161/105 161/105 O2 Sat by Pulse 99 100 98 Oximetry 07/20/19 07/20/19 07/20/19 07:21 07:30 07:41 Temperature Pulse Rate 107 H 119 H 118 H Pulse Rate [ Anterior Bilateral Throughout] Pulse Rate [ From Monitor] Respiratory 11 L 20 16 Rate Respiratory Rate [Anterior Bilateral Throughout] Blood Pressure 149/88 168/109 168/109 O2 Sat by Pulse 99 100 100 Oximetry 07/20/19 07/20/19 07/20/19 07:51 08:00 08:11 Temperature 100.7 F H Pulse Rate 116 H 96 H 90 Pulse Rate [ Anterior Bilateral Throughout] Pulse Rate [ 86 From Monitor] Respiratory 37 H 24 24 Rate Respiratory Rate [Anterior Bilateral Throughout] Blood Pressure 164/107 131/70 131/70 O2 Sat by Pulse 99 99 99 Oximetry 07/20/19 07/20/19 07/20/19 08:21 08:30 08:41 Temperature Pulse Rate 94 H 89 89 Pulse Rate [ Anterior Bilateral Throughout] Pulse Rate [ From Monitor] Respiratory 24 24 24 Rate Respiratory Rate [Anterior Bilateral Throughout] Blood Pressure 129/63 123/65 123/65 O2 Sat by Pulse 100 100 100 Oximetry 07/20/19 07/20/19 07/20/19 08:45 08:51 09:00 Temperature Pulse Rate 88 87 97 H Pulse Rate [ 87 Anterior Bilateral Throughout] Pulse Rate [ From Monitor] Respiratory 24 24 Rate Respiratory 24 Rate [Anterior Bilateral Throughout] Blood Pressure 124/65 124/65 138/77 O2 Sat by Pulse 100 100 100 Oximetry 07/20/19 09:03 Temperature Pulse Rate 97 H Pulse Rate [ Anterior Bilateral Throughout] Pulse Rate [ From Monitor] Respiratory Rate Respiratory Rate [Anterior Bilateral Throughout] Blood Pressure 138/77 O2 Sat by Pulse Oximetry Constitutional: comatose Eyes: non-icteric ENT: other (orally intubated and sedated.) Neck: supple Effort: normal Ascultation: Bilateral: diminished breath sounds Percussion: Bilateral: not dull Cardiovascular: regular rate and rhythm Gastrointestinal: normoactive bowel sounds, soft, non-tender Integumentary: normal Neurologic: unable to assess CBC and BMP: 07/18/19 03:35 07/18/19 03:35 ABG, PT/INR, D-dimer: ABG ABG pH 7.385 pH Units (7.350-7.450) 07/20/19 04:10 ABG pCO2 49.3 mm Hg 07/20/19 04:10 ABG pO2 94.4 mm Hg (80.0-90.0) H 07/20/19 04:10 ABG O2 Saturation 97.3 % (95.0-99.0) 07/20/19 04:10 Abnormal lab findings: Abnormal Labs 07/17/19 07/17/19 07/17/19 15:10 15:51 15:51 WBC 20.6 H RBC 5.66 H MCV 67 L MCH 20 L MCHC 29 L RDW 18.3 H Seg Neuts % (Manual) 84.0 H Lymphocytes % (Manual) 10.0 L Seg Neutrophils # Man 17.3 H Lymphocytes # (Manual) Basophils # (Manual) 0.2 H APTT 20.7 L ABG pH 7.147 L* ABG pO2 174.7 H ABG HCO3 ABG Base Excess -4.2 L ABG Hemoglobin 11.0 L Oxyhemoglobin 94.2 L Glucose POC Glucose Lactic Acid Calcium AST ALT Alkaline Phosphatase Albumin Urine WBC (Auto) Salicylates Acetaminophen 07/17/19 07/17/19 07/17/19 15:51 15:51 16:30 WBC RBC MCV MCH MCHC RDW Seg Neuts % (Manual) Lymphocytes % (Manual) Seg Neutrophils # Man Lymphocytes # (Manual) Basophils # (Manual) APTT ABG pH ABG pO2 ABG HCO3 ABG Base Excess ABG Hemoglobin Oxyhemoglobin Glucose 302 H POC Glucose Lactic Acid 4.70 H* Calcium 8.1 L AST 104 H ALT 57 H Alkaline Phosphatase 158 H Albumin 3.8 L Urine WBC (Auto) 12.0 H Salicylates Acetaminophen 07/17/19 07/17/19 07/17/19 18:20 18:20 18:20 WBC RBC MCV MCH MCHC RDW Seg Neuts % (Manual) Lymphocytes % (Manual) Seg Neutrophils # Man Lymphocytes # (Manual) Basophils # (Manual) APTT ABG pH ABG pO2 ABG HCO3 ABG Base Excess ABG Hemoglobin Oxyhemoglobin Glucose POC Glucose Lactic Acid 2.40 H* Calcium AST ALT Alkaline Phosphatase Albumin Urine WBC (Auto) Salicylates < 0.3 L Acetaminophen < 5.0 L 07/17/19 07/17/19 07/17/19 19:16 22:15 22:26 WBC RBC MCV MCH MCHC RDW Seg Neuts % (Manual) Lymphocytes % (Manual) Seg Neutrophils # Man Lymphocytes # (Manual) Basophils # (Manual) APTT ABG pH ABG pO2 104.1 H ABG HCO3 26.7 H ABG Base Excess ABG Hemoglobin 11.1 L Oxyhemoglobin Glucose POC Glucose 136 H Lactic Acid 2.40 H* Calcium AST ALT Alkaline Phosphatase Albumin Urine WBC (Auto) Salicylates Acetaminophen 07/18/19 07/18/19 07/18/19 03:35 03:35 04:28 WBC 21.9 H RBC 5.68 H MCV 66 L MCH 19 L MCHC RDW 17.7 H Seg Neuts % (Manual) 96.0 H Lymphocytes % (Manual) 4.0 L Seg Neutrophils # Man 21.0 H Lymphocytes # (Manual) 0.9 L Basophils # (Manual) APTT ABG pH ABG pO2 91.3 H ABG HCO3 29.3 H ABG Base Excess 3.1 H ABG Hemoglobin 10.9 L Oxyhemoglobin 94.9 L Glucose 157 H POC Glucose Lactic Acid Calcium 7.8 L AST 59 H ALT Alkaline Phosphatase Albumin 3.5 L Urine WBC (Auto) Salicylates Acetaminophen 07/18/19 07/18/19 07/19/19 12:04 18:09 00:04 WBC RBC MCV MCH MCHC RDW Seg Neuts % (Manual) Lymphocytes % (Manual) Seg Neutrophils # Man Lymphocytes # (Manual) Basophils # (Manual) APTT ABG pH ABG pO2 ABG HCO3 ABG Base Excess ABG Hemoglobin Oxyhemoglobin Glucose POC Glucose 171 H 136 H 120 H Lactic Acid Calcium AST ALT Alkaline Phosphatase Albumin Urine WBC (Auto) Salicylates Acetaminophen 07/19/19 07/19/19 07/19/19 05:00 08:30 12:23 WBC RBC MCV MCH MCHC RDW Seg Neuts % (Manual) Lymphocytes % (Manual) Seg Neutrophils # Man Lymphocytes # (Manual) Basophils # (Manual) APTT ABG pH 7.451 H ABG pO2 75.6 L ABG HCO3 28.1 H ABG Base Excess 3.8 H ABG Hemoglobin 11.3 L Oxyhemoglobin 94.6 L Glucose POC Glucose 118 H 131 H Lactic Acid Calcium AST ALT Alkaline Phosphatase Albumin Urine WBC (Auto) Salicylates Acetaminophen 07/20/19 07/20/19 00:21 04:10 WBC RBC MCV MCH MCHC RDW Seg Neuts % (Manual) Lymphocytes % (Manual) Seg Neutrophils # Man Lymphocytes # (Manual) Basophils # (Manual) APTT ABG pH ABG pO2 94.4 H ABG HCO3 28.9 H ABG Base Excess ABG Hemoglobin Oxyhemoglobin 94.8 L Glucose POC Glucose 114 H Lactic Acid Calcium AST ALT Alkaline Phosphatase Albumin Urine WBC (Auto) Salicylates Acetaminophen
[2019-07-20] MEDS: levETIRAcetam 1,000 MG in DEXTROSE 5% IN WATER 100 ML IV SCH ×2 (09:56→21:55)
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
[2019-07-20] MEDS: ENOXAPARIN 40 MG/0.4 ML INJ SUB-Q SCH (21:55)
[2019-07-21] MEDS: IPRATROPIUM/ALBUTEROL SULFATE 3 ML AMPUL.NEB IH SCH ×4 (01:27→19:14)
[2019-07-21] MEDS: HYDROmorphone 1 MG/1 ML INJ IV PRN (03:50)
[2019-07-21] MEDS: INSULIN LISPRO 100 UNIT/ML SUB-Q SCH ×4 (03:52→18:21)
[2019-07-21 04:07] LABS: ABG Base Excess 3.6 mmol/L (-2.0-3.0); ABG Methemoglobin 0.5 % (0.0-1.5); ABG Oxygen Saturation 97.1 % (95.0-99.0); ABG PCO2 48.3 mm Hg; ABG PH 7.397 pH Units (7.350-7.450); ABG PO2 87.5 mm Hg (80.0-90.0)
[2019-07-21] MEDS: SODIUM CHLORIDE 0.9% 1000 ML 1,000 ML IV SCH (05:19)
[2019-07-21] MEDS: BUDESONIDE 0.5 MG/2 ML NEBU IH SCH ×2 (07:22→19:14)
--- NOTE | 2019-07-21 09:32 | Progress Note ---
Assessment and Plan 29 y/o female with cardiac arrest, asystole, exact etiology unknown now on vent support. 1. No sedation 2. Need to have family meeting as the likely gallegos of recovering is none. Will see if CM can arrange this sometime this week. 3. Continue supportive care 4. Poor prognosis. 5. Increased BB to 200q8 CCt 31 minutes. Subjective Date of service: 07/21/19 Principal diagnosis: Anoxic brain injury Interval history: No acute events. Discussed the CT findings with a sister at the bedside. She was tearful. patient remains unresponsive Objective Vital Signs - 12hr 07/20/19 07/20/19 07/20/19 21:30 21:41 21:51 Temperature Pulse Rate 103 H 117 H 111 H Pulse Rate [ Anterior Bilateral Throughout] Respiratory 11 L 26 H 24 Rate Respiratory Rate [Anterior Bilateral Throughout] Blood Pressure 170/117 170/117 170/113 O2 Sat by Pulse 100 100 99 Oximetry 07/20/19 07/20/19 07/20/19 21:56 21:57 22:00 Temperature Pulse Rate 107 H 109 H 104 H Pulse Rate [ Anterior Bilateral Throughout] Respiratory 14 Rate Respiratory Rate [Anterior Bilateral Throughout] Blood Pressure 170/113 170/113 159/111 O2 Sat by Pulse 99 Oximetry 07/20/19 07/20/19 07/20/19 22:11 22:21 22:31 Temperature Pulse Rate 112 H 97 H 84 Pulse Rate [ Anterior Bilateral Throughout] Respiratory 21 24 23 Rate Respiratory Rate [Anterior Bilateral Throughout] Blood Pressure 159/111 171/113 147/92 O2 Sat by Pulse 100 100 100 Oximetry 07/20/19 07/20/19 07/20/19 22:41 22:51 23:00 Temperature Pulse Rate 78 87 81 Pulse Rate [ Anterior Bilateral Throughout] Respiratory 24 21 24 Rate Respiratory Rate [Anterior Bilateral Throughout] Blood Pressure 147/92 143/83 143/83 O2 Sat by Pulse 100 100 100 Oximetry 07/20/19 07/20/19 07/20/19 23:11 23:21 23:23 Temperature Pulse Rate 91 H 95 H 101 H Pulse Rate [ Anterior Bilateral Throughout] Respiratory 24 24 Rate Respiratory Rate [Anterior Bilateral Throughout] Blood Pressure 134/77 154/107 154/107 O2 Sat by Pulse 100 100 100 Oximetry 07/20/19 07/20/19 07/20/19 23:28 23:30 23:41 Temperature 99.4 F Pulse Rate 87 111 H Pulse Rate [ Anterior Bilateral Throughout] Respiratory 23 16 Rate Respiratory Rate [Anterior Bilateral Throughout] Blood Pressure 147/92 147/92 O2 Sat by Pulse 100 100 Oximetry 07/20/19 07/21/19 07/21/19 23:51 00:00 00:11 Temperature Pulse Rate 109 H 99 H 105 H Pulse Rate [ Anterior Bilateral Throughout] Respiratory 21 25 H 23 Rate Respiratory Rate [Anterior Bilateral Throughout] Blood Pressure 158/103 155/105 155/105 O2 Sat by Pulse 100 100 100 Oximetry 07/21/19 07/21/19 07/21/19 00:21 00:30 00:41 Temperature Pulse Rate 117 H 87 111 H Pulse Rate [ Anterior Bilateral Throughout] Respiratory 21 26 H 23 Rate Respiratory Rate [Anterior Bilateral Throughout] Blood Pressure 172/110 153/91 153/91 O2 Sat by Pulse 99 100 99 Oximetry 07/21/19 07/21/19 07/21/19 00:51 01:00 01:11 Temperature Pulse Rate 107 H 79 97 H Pulse Rate [ Anterior Bilateral Throughout] Respiratory 22 24 22 Rate Respiratory Rate [Anterior Bilateral Throughout] Blood Pressure 164/111 138/79 138/79 O2 Sat by Pulse 100 99 100 Oximetry 07/21/19 07/21/19 07/21/19 01:20 01:30 01:39 Temperature Pulse Rate 83 89 Pulse Rate [ 113 H Anterior Bilateral Throughout] Respiratory 20 18 Rate Respiratory 24 Rate [Anterior Bilateral Throughout] Blood Pressure 144/86 149/91 O2 Sat by Pulse 100 98 Oximetry 07/21/19 07/21/19 07/21/19 01:41 01:51 02:00 Temperature Pulse Rate 109 H 113 H 100 H Pulse Rate [ Anterior Bilateral Throughout] Respiratory 14 26 H 18 Rate Respiratory Rate [Anterior Bilateral Throughout] Blood Pressure 149/91 166/105 158/102 O2 Sat by Pulse 99 100 99 Oximetry 07/21/19 07/21/19 07/21/19 02:11 02:21 02:30 Temperature Pulse Rate 85 84 83 Pulse Rate [ Anterior Bilateral Throughout] Respiratory 25 H 24 22 Rate Respiratory Rate [Anterior Bilateral Throughout] Blood Pressure 158/102 141/80 140/87 O2 Sat by Pulse 99 100 100 Oximetry 07/21/19 07/21/19 07/21/19 02:41 02:51 03:00 Temperature Pulse Rate 83 79 82 Pulse Rate [ Anterior Bilateral Throughout] Respiratory 19 23 24 Rate Respiratory Rate [Anterior Bilateral Throughout] Blood Pressure 140/87 133/78 145/82 O2 Sat by Pulse 100 100 100 Oximetry 07/21/19 07/21/19 07/21/19 03:11 03:21 03:29 Temperature 99.8 F H Pulse Rate 84 105 H Pulse Rate [ Anterior Bilateral Throughout] Respiratory 25 H 12 Rate Respiratory Rate [Anterior Bilateral Throughout] Blood Pressure 145/82 169/122 O2 Sat by Pulse 100 100 Oximetry 07/21/19 07/21/19 07/21/19 03:30 03:41 03:51 Temperature Pulse Rate 105 H 118 H 102 H Pulse Rate [ Anterior Bilateral Throughout] Respiratory 16 18 26 H Rate Respiratory Rate [Anterior Bilateral Throughout] Blood Pressure 166/115 166/115 166/115 O2 Sat by Pulse 100 99 99 Oximetry 07/21/19 07/21/19 07/21/19 04:00 04:01 04:10 Temperature Pulse Rate 116 H 108 H 111 H Pulse Rate [ Anterior Bilateral Throughout] Respiratory 26 H Rate Respiratory Rate [Anterior Bilateral Throughout] Blood Pressure 166/115 O2 Sat by Pulse 99 99 Oximetry 07/21/19 07/21/19 07/21/19 04:11 04:21 04:31 Temperature Pulse Rate 110 H 112 H 114 H Pulse Rate [ Anterior Bilateral Throughout] Respiratory 25 H 25 H 25 H Rate Respiratory Rate [Anterior Bilateral Throughout] Blood Pressure 166/115 166/115 166/115 O2 Sat by Pulse 99 99 99 Oximetry 07/21/19 07/21/19 07/21/19 04:41 04:51 05:01 Temperature Pulse Rate 131 H 126 H 130 H Pulse Rate [ Anterior Bilateral Throughout] Respiratory 19 25 H Rate Respiratory Rate [Anterior Bilateral Throughout] Blood Pressure 166/115 166/115 166/115 O2 Sat by Pulse 99 99 100 Oximetry 07/21/19 07/21/19 07/21/19 05:11 05:21 05:30 Temperature Pulse Rate 126 H 116 H 112 H Pulse Rate [ Anterior Bilateral Throughout] Respiratory 19 24 24 Rate Respiratory Rate [Anterior Bilateral Throughout] Blood Pressure 166/115 137/80 124/64 O2 Sat by Pulse 99 99 99 Oximetry 07/21/19 07/21/19 07/21/19 05:41 05:51 06:00 Temperature Pulse Rate 109 H 107 H 104 H Pulse Rate [ Anterior Bilateral Throughout] Respiratory 24 24 24 Rate Respiratory Rate [Anterior Bilateral Throughout] Blood Pressure 124/64 124/65 116/64 O2 Sat by Pulse 99 99 99 Oximetry 07/21/19 07/21/19 07/21/19 06:11 06:21 06:30 Temperature Pulse Rate 98 H 100 H 100 H Pulse Rate [ Anterior Bilateral Throughout] Respiratory 24 23 24 Rate Respiratory Rate [Anterior Bilateral Throughout] Blood Pressure 116/64 107/58 115/57 O2 Sat by Pulse 99 100 100 Oximetry 07/21/19 07/21/19 07/21/19 06:41 06:51 07:01 Temperature Pulse Rate 116 H 103 H 112 H Pulse Rate [ Anterior Bilateral Throughout] Respiratory 24 16 25 H Rate Respiratory Rate [Anterior Bilateral Throughout] Blood Pressure 115/57 128/84 146/98 O2 Sat by Pulse 100 100 99 Oximetry 07/21/19 07/21/19 07/21/19 07:11 07:21 07:22 Temperature Pulse Rate 111 H 120 H 123 H Pulse Rate [ 122 H Anterior Bilateral Throughout] Respiratory 24 25 H Rate Respiratory 27 H Rate [Anterior Bilateral Throughout] Blood Pressure 146/98 147/79 154/97 O2 Sat by Pulse 99 98 98 Oximetry 07/21/19 07/21/19 07/21/19 07:30 07:35 07:41 Temperature 99.9 F H Pulse Rate 119 H 133 H Pulse Rate [ Anterior Bilateral Throughout] Respiratory 27 H 37 H Rate Respiratory Rate [Anterior Bilateral Throughout] Blood Pressure 154/97 147/79 O2 Sat by Pulse 99 95 Oximetry 07/21/19 07/21/19 07/21/19 07:51 08:00 08:11 Temperature Pulse Rate 126 H 123 H 123 H Pulse Rate [ Anterior Bilateral Throughout] Respiratory 24 24 14 Rate Respiratory Rate [Anterior Bilateral Throughout] Blood Pressure 164/94 129/69 154/97 O2 Sat by Pulse 97 98 98 Oximetry 07/21/19 07/21/19 07/21/19 08:21 08:30 08:41 Temperature Pulse Rate 122 H 120 H 133 H Pulse Rate [ Anterior Bilateral Throughout] Respiratory 21 19 25 H Rate Respiratory Rate [Anterior Bilateral Throughout] Blood Pressure 147/82 148/84 148/84 O2 Sat by Pulse 99 99 99 Oximetry Constitutional: comatose Eyes: non-icteric ENT: other (orally intubated and sedated.) Neck: supple Effort: normal Ascultation: Bilateral: diminished breath sounds Percussion: Bilateral: not dull Cardiovascular: regular rate and rhythm Gastrointestinal: normoactive bowel sounds, soft, non-tender Integumentary: normal Neurologic: unable to assess CBC and BMP: 07/18/19 03:35 07/18/19 03:35 ABG, PT/INR, D-dimer: ABG ABG pH 7.397 pH Units (7.350-7.450) 07/21/19 03:40 ABG pCO2 48.3 mm Hg 07/21/19 03:40 ABG pO2 87.5 mm Hg (80.0-90.0) 07/21/19 03:40 ABG O2 Saturation 97.1 % (95.0-99.0) 07/21/19 03:40 Abnormal lab findings: Abnormal Labs 07/17/19 07/17/19 07/17/19 15:10 15:51 15:51 WBC 20.6 H RBC 5.66 H MCV 67 L MCH 20 L MCHC 29 L RDW 18.3 H Seg Neuts % (Manual) 84.0 H Lymphocytes % (Manual) 10.0 L Seg Neutrophils # Man 17.3 H Lymphocytes # (Manual) Basophils # (Manual) 0.2 H APTT 20.7 L ABG pH 7.147 L* ABG pO2 174.7 H ABG HCO3 ABG Base Excess -4.2 L ABG Hemoglobin 11.0 L Oxyhemoglobin 94.2 L Glucose POC Glucose Lactic Acid Calcium AST ALT Alkaline Phosphatase Albumin Urine WBC (Auto) Salicylates Acetaminophen 07/17/19 07/17/19 07/17/19 15:51 15:51 16:30 WBC RBC MCV MCH MCHC RDW Seg Neuts % (Manual) Lymphocytes % (Manual) Seg Neutrophils # Man Lymphocytes # (Manual) Basophils # (Manual) APTT ABG pH ABG pO2 ABG HCO3 ABG Base Excess ABG Hemoglobin Oxyhemoglobin Glucose 302 H POC Glucose Lactic Acid 4.70 H* Calcium 8.1 L AST 104 H ALT 57 H Alkaline Phosphatase 158 H Albumin 3.8 L Urine WBC (Auto) 12.0 H Salicylates Acetaminophen 07/17/19 07/17/19 07/17/19 18:20 18:20 18:20 WBC RBC MCV MCH MCHC RDW Seg Neuts % (Manual) Lymphocytes % (Manual) Seg Neutrophils # Man Lymphocytes # (Manual) Basophils # (Manual) APTT ABG pH ABG pO2 ABG HCO3 ABG Base Excess ABG Hemoglobin Oxyhemoglobin Glucose POC Glucose Lactic Acid 2.40 H* Calcium AST ALT Alkaline Phosphatase Albumin Urine WBC (Auto) Salicylates < 0.3 L Acetaminophen < 5.0 L 07/17/19 07/17/19 07/17/19 19:16 22:15 22:26 WBC RBC MCV MCH MCHC RDW Seg Neuts % (Manual) Lymphocytes % (Manual) Seg Neutrophils # Man Lymphocytes # (Manual) Basophils # (Manual) APTT ABG pH ABG pO2 104.1 H ABG HCO3 26.7 H ABG Base Excess ABG Hemoglobin 11.1 L Oxyhemoglobin Glucose POC Glucose 136 H Lactic Acid 2.40 H* Calcium AST ALT Alkaline Phosphatase Albumin Urine WBC (Auto) Salicylates Acetaminophen 07/18/19 07/18/19 07/18/19 03:35 03:35 04:28 WBC 21.9 H RBC 5.68 H MCV 66 L MCH 19 L MCHC RDW 17.7 H Seg Neuts % (Manual) 96.0 H Lymphocytes % (Manual) 4.0 L Seg Neutrophils # Man 21.0 H Lymphocytes # (Manual) 0.9 L Basophils # (Manual) APTT ABG pH ABG pO2 91.3 H ABG HCO3 29.3 H ABG Base Excess 3.1 H ABG Hemoglobin 10.9 L Oxyhemoglobin 94.9 L Glucose 157 H POC Glucose Lactic Acid Calcium 7.8 L AST 59 H ALT Alkaline Phosphatase Albumin 3.5 L Urine WBC (Auto) Salicylates Acetaminophen 07/18/19 07/18/19 07/19/19 12:04 18:09 00:04 WBC RBC MCV MCH MCHC RDW Seg Neuts % (Manual) Lymphocytes % (Manual) Seg Neutrophils # Man Lymphocytes # (Manual) Basophils # (Manual) APTT ABG pH ABG pO2 ABG HCO3 ABG Base Excess ABG Hemoglobin Oxyhemoglobin Glucose POC Glucose 171 H 136 H 120 H Lactic Acid Calcium AST ALT Alkaline Phosphatase Albumin Urine WBC (Auto) Salicylates Acetaminophen 07/19/19 07/19/19 07/19/19 05:00 08:30 12:23 WBC RBC MCV MCH MCHC RDW Seg Neuts % (Manual) Lymphocytes % (Manual) Seg Neutrophils # Man Lymphocytes # (Manual) Basophils # (Manual) APTT ABG pH 7.451 H ABG pO2 75.6 L ABG HCO3 28.1 H ABG Base Excess 3.8 H ABG Hemoglobin 11.3 L Oxyhemoglobin 94.6 L Glucose POC Glucose 118 H 131 H Lactic Acid Calcium AST ALT Alkaline Phosphatase Albumin Urine WBC (Auto) Salicylates Acetaminophen 07/20/19 07/20/19 07/20/19 00:21 04:10 18:07 WBC RBC MCV MCH MCHC RDW Seg Neuts % (Manual) Lymphocytes % (Manual) Seg Neutrophils # Man Lymphocytes # (Manual) Basophils # (Manual) APTT ABG pH ABG pO2 94.4 H ABG HCO3 28.9 H ABG Base Excess ABG Hemoglobin Oxyhemoglobin 94.8 L Glucose POC Glucose 114 H 111 H Lactic Acid Calcium AST ALT Alkaline Phosphatase Albumin Urine WBC (Auto) Salicylates Acetaminophen 07/21/19 07/21/19 07/21/19 00:42 03:40 05:56 WBC RBC MCV MCH MCHC RDW Seg Neuts % (Manual) Lymphocytes % (Manual) Seg Neutrophils # Man Lymphocytes # (Manual) Basophils # (Manual) APTT ABG pH ABG pO2 ABG HCO3 29.0 H ABG Base Excess 3.6 H ABG Hemoglobin 9.9 L Oxyhemoglobin 94.7 L Glucose POC Glucose 109 H 125 H Lactic Acid Calcium AST ALT Alkaline Phosphatase Albumin Urine WBC (Auto) Salicylates Acetaminophen
[2019-07-21] MEDS: SCOPOLAMINE TRANSDERMAL PATCH 72 HR TD SCH (10:45)
[2019-07-21] MEDS: NICOTINE 21 MG/24 HR PATCH TD SCH (10:45)
[2019-07-21] MEDS: VALSARTAN 40 MG TAB PO SCH ×3 (10:45→21:41)
[2019-07-21] MEDS: FAMOTIDINE 20 MG/2 ML INJ IV SCH ×2 (10:46→21:38)
[2019-07-21] MEDS: levETIRAcetam 1,000 MG in DEXTROSE 5% IN WATER 100 ML IV SCH ×2 (10:46→21:39)
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
[2019-07-21] MEDS: ENOXAPARIN 40 MG/0.4 ML INJ SUB-Q SCH (21:38)
[2019-07-21] MEDS: ACETAMINOPHEN 325 MG TAB PO PRN (23:36)
[2019-07-22] MEDS: INSULIN LISPRO 100 UNIT/ML SUB-Q SCH ×4 (00:49→18:15)
[2019-07-22] MEDS: IPRATROPIUM/ALBUTEROL SULFATE 3 ML AMPUL.NEB IH SCH ×4 (02:07→19:41)
[2019-07-22 05:23] LABS: ABG HCO3 30.2 mmol/L (20.0-26.0); ABG Methemoglobin 0.5 % (0.0-1.5); ABG Oxygen Saturation 98.3 % (95.0-99.0); ABG PCO2 48.4 mm Hg; ABG PH 7.414 pH Units (7.350-7.450); ABG PO2 120.1 mm Hg (80.0-90.0)
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
[2019-07-22] MEDS: BUDESONIDE 0.5 MG/2 ML NEBU IH SCH ×2 (07:16→19:41)
[2019-07-22] MEDS: ACETAMINOPHEN 325 MG TAB PO PRN ×2 (07:57→18:27)
[2019-07-22] MEDS ORDERED: CEFEPIME/NS 1 GM/100 ML 1 GM/100 ML BAG IV SCH (09:00)
[2019-07-22] MEDS ORDERED: VANCOMYCIN PHARMACY TO DOSE IV SCH (09:00)
[2019-07-22 09:12] LABS: Mean Corpuscular HGB Conc 30 % (30-34); Platelet Count 195 K/mm3 (140-440); Red Blood Count 4.82 M/mm3 (3.65-5.03); Red Cell Distribution Width 17.8 % (13.2-15.2)
[2019-07-22 09:33] LABS: Alanine Aminotransferase 47 units/L (7-56); Albumin 3.4 g/dL (3.9-5); BUN/Creatinine Ratio 26; Blood Urea Nitrogen 13 mg/dL (7-17); Calcium 9.2 mg/dL (8.4-10.2); Hemolysis Index 24
[2019-07-22 09:36] LABS: Hematocrit 30.9 % (30.3-42.9); Hemoglobin 9.3 gm/dl (10.1-14.3); Mean Corpuscular Volume 64 fl (79-97)
--- NOTE | 2019-07-22 09:36 | Progress Note ---
Assessment and Plan 29 y/o female with cardiac arrest, asystole, exact etiology unknown now on vent support. 1. No sedation 2. Need to have family meeting as the likely gallegos of recovering is none. Will see if CM can arrange this sometime this week. 3. Continue supportive care 4. Poor prognosis. 5. Increased BB to 200q8, had good response with BP and heart RATE CCt 31 minutes. Subjective Date of service: 07/22/19 Principal diagnosis: Anoxic brain injury Interval history: no acute events overnight. Remains unresponsive. No family at bedside. Objective Vital Signs - 12hr 07/21/19 07/21/19 07/21/19 21:40 21:41 21:50 Temperature Pulse Rate 113 H 98 H 99 H Pulse Rate [ Anterior Bilateral Throughout] Pulse Rate [ From Monitor] Respiratory 23 23 Rate Respiratory Rate [Anterior Bilateral Throughout] Blood Pressure 131/70 131/70 131/70 O2 Sat by Pulse 100 100 Oximetry 07/21/19 07/21/19 07/21/19 22:00 22:10 22:20 Temperature Pulse Rate 112 H 100 H 99 H Pulse Rate [ Anterior Bilateral Throughout] Pulse Rate [ From Monitor] Respiratory 17 23 17 Rate Respiratory Rate [Anterior Bilateral Throughout] Blood Pressure 158/101 158/101 158/101 O2 Sat by Pulse 100 100 100 Oximetry 07/21/19 07/21/19 07/21/19 22:30 22:40 22:50 Temperature Pulse Rate 98 H 98 H 102 H Pulse Rate [ Anterior Bilateral Throughout] Pulse Rate [ From Monitor] Respiratory 26 H 23 24 Rate Respiratory Rate [Anterior Bilateral Throughout] Blood Pressure 158/101 158/101 140/83 O2 Sat by Pulse 100 100 100 Oximetry 07/21/19 07/21/19 07/21/19 23:00 23:10 23:20 Temperature Pulse Rate 101 H 113 H 114 H Pulse Rate [ Anterior Bilateral Throughout] Pulse Rate [ From Monitor] Respiratory 20 20 15 Rate Respiratory Rate [Anterior Bilateral Throughout] Blood Pressure 139/81 139/81 139/81 O2 Sat by Pulse 100 100 100 Oximetry 07/21/19 07/21/19 07/21/19 23:30 23:31 23:40 Temperature 102.4 F H Pulse Rate 98 H 108 H Pulse Rate [ Anterior Bilateral Throughout] Pulse Rate [ From Monitor] Respiratory 24 17 Rate Respiratory Rate [Anterior Bilateral Throughout] Blood Pressure 135/75 135/75 O2 Sat by Pulse 100 100 Oximetry 07/21/19 07/21/19 07/21/19 23:43 23:50 23:54 Temperature Pulse Rate 112 H 113 H 103 H Pulse Rate [ Anterior Bilateral Throughout] Pulse Rate [ From Monitor] Respiratory 17 22 24 Rate Respiratory Rate [Anterior Bilateral Throughout] Blood Pressure 135/75 139/81 135/75 O2 Sat by Pulse 100 100 100 Oximetry 07/22/19 07/22/19 07/22/19 00:00 00:06 00:10 Temperature Pulse Rate 114 H 110 H 100 H Pulse Rate [ Anterior Bilateral Throughout] Pulse Rate [ From Monitor] Respiratory 25 H 15 24 Rate Respiratory Rate [Anterior Bilateral Throughout] Blood Pressure 157/97 157/97 157/97 O2 Sat by Pulse 100 100 100 Oximetry 07/22/19 07/22/19 07/22/19 00:20 00:30 00:40 Temperature Pulse Rate 97 H 94 H 100 H Pulse Rate [ Anterior Bilateral Throughout] Pulse Rate [ From Monitor] Respiratory 21 22 23 Rate Respiratory Rate [Anterior Bilateral Throughout] Blood Pressure 157/97 130/68 130/68 O2 Sat by Pulse 100 100 100 Oximetry 07/22/19 07/22/19 07/22/19 00:50 01:00 01:10 Temperature Pulse Rate 95 H 91 H 92 H Pulse Rate [ Anterior Bilateral Throughout] Pulse Rate [ From Monitor] Respiratory 24 23 24 Rate Respiratory Rate [Anterior Bilateral Throughout] Blood Pressure 130/68 122/71 122/71 O2 Sat by Pulse 100 100 100 Oximetry 07/22/19 07/22/19 07/22/19 01:20 01:30 01:40 Temperature Pulse Rate 94 H 93 H 91 H Pulse Rate [ Anterior Bilateral Throughout] Pulse Rate [ From Monitor] Respiratory 24 24 24 Rate Respiratory Rate [Anterior Bilateral Throughout] Blood Pressure 122/71 125/73 125/73 O2 Sat by Pulse 100 100 100 Oximetry 07/22/19 07/22/19 07/22/19 01:50 02:00 02:10 Temperature Pulse Rate 90 89 86 Pulse Rate [ Anterior Bilateral Throughout] Pulse Rate [ From Monitor] Respiratory 24 23 24 Rate Respiratory Rate [Anterior Bilateral Throughout] Blood Pressure 125/73 145/85 145/85 O2 Sat by Pulse 100 100 99 Oximetry 07/22/19 07/22/19 07/22/19 02:17 02:20 02:30 Temperature Pulse Rate 91 H 92 H Pulse Rate [ 93 H Anterior Bilateral Throughout] Pulse Rate [ From Monitor] Respiratory 24 24 Rate Respiratory 24 Rate [Anterior Bilateral Throughout] Blood Pressure 145/85 129/76 O2 Sat by Pulse 99 100 Oximetry 07/22/19 07/22/19 07/22/19 02:38 02:40 02:50 Temperature Pulse Rate 90 94 H 90 Pulse Rate [ Anterior Bilateral Throughout] Pulse Rate [ From Monitor] Respiratory 24 25 H Rate Respiratory Rate [Anterior Bilateral Throughout] Blood Pressure 129/76 129/76 129/76 O2 Sat by Pulse 100 100 Oximetry 07/22/19 07/22/19 07/22/19 03:00 03:06 03:10 Temperature 100.1 F H Pulse Rate 105 H 84 Pulse Rate [ Anterior Bilateral Throughout] Pulse Rate [ From Monitor] Respiratory 17 21 Rate Respiratory Rate [Anterior Bilateral Throughout] Blood Pressure 146/96 146/96 O2 Sat by Pulse 100 100 Oximetry 07/22/19 07/22/19 07/22/19 03:12 03:20 03:30 Temperature Pulse Rate 93 H 94 H 104 H Pulse Rate [ Anterior Bilateral Throughout] Pulse Rate [ From Monitor] Respiratory 14 20 Rate Respiratory Rate [Anterior Bilateral Throughout] Blood Pressure 129/76 146/96 146/96 O2 Sat by Pulse 100 100 100 Oximetry 07/22/19 07/22/19 07/22/19 03:40 03:50 04:00 Temperature Pulse Rate 106 H 100 H 104 H Pulse Rate [ Anterior Bilateral Throughout] Pulse Rate [ 97 H From Monitor] Respiratory 16 25 H 16 Rate Respiratory Rate [Anterior Bilateral Throughout] Blood Pressure 146/96 127/88 118/80 O2 Sat by Pulse 98 97 Oximetry 07/22/19 07/22/19 07/22/19 04:10 04:20 04:30 Temperature Pulse Rate 102 H 100 H 91 H Pulse Rate [ Anterior Bilateral Throughout] Pulse Rate [ From Monitor] Respiratory 17 23 24 Rate Respiratory Rate [Anterior Bilateral Throughout] Blood Pressure 118/80 118/80 132/71 O2 Sat by Pulse 99 99 99 Oximetry 07/22/19 07/22/19 07/22/19 04:40 04:50 05:00 Temperature Pulse Rate 107 H 98 H 113 H Pulse Rate [ Anterior Bilateral Throughout] Pulse Rate [ From Monitor] Respiratory 22 19 24 Rate Respiratory Rate [Anterior Bilateral Throughout] Blood Pressure 132/71 132/71 132/71 O2 Sat by Pulse 98 99 97 Oximetry 07/22/19 07/22/19 07/22/19 05:10 05:20 05:30 Temperature Pulse Rate 111 H 103 H 98 H Pulse Rate [ Anterior Bilateral Throughout] Pulse Rate [ From Monitor] Respiratory 25 H 18 24 Rate Respiratory Rate [Anterior Bilateral Throughout] Blood Pressure 160/104 160/104 124/58 O2 Sat by Pulse 98 99 98 Oximetry 07/22/19 07/22/19 07/22/19 05:40 05:50 06:00 Temperature Pulse Rate 96 H 96 H 95 H Pulse Rate [ Anterior Bilateral Throughout] Pulse Rate [ From Monitor] Respiratory 24 24 24 Rate Respiratory Rate [Anterior Bilateral Throughout] Blood Pressure 124/58 124/58 119/68 O2 Sat by Pulse 99 99 99 Oximetry 07/22/19 07/22/19 07/22/19 06:10 06:20 06:30 Temperature Pulse Rate 95 H 95 H 93 H Pulse Rate [ Anterior Bilateral Throughout] Pulse Rate [ From Monitor] Respiratory 24 23 24 Rate Respiratory Rate [Anterior Bilateral Throughout] Blood Pressure 119/68 119/68 122/66 O2 Sat by Pulse 99 99 100 Oximetry 07/22/19 07/22/19 07/22/19 06:40 06:50 07:00 Temperature Pulse Rate 94 H 113 H 113 H Pulse Rate [ Anterior Bilateral Throughout] Pulse Rate [ From Monitor] Respiratory 24 20 17 Rate Respiratory Rate [Anterior Bilateral Throughout] Blood Pressure 122/66 122/66 122/66 O2 Sat by Pulse 99 98 97 Oximetry 07/22/19 07/22/19 07/22/19 07:10 07:16 07:20 Temperature Pulse Rate 114 H 100 H 105 H Pulse Rate [ 105 H Anterior Bilateral Throughout] Pulse Rate [ From Monitor] Respiratory 32 H 25 H Rate Respiratory 25 H Rate [Anterior Bilateral Throughout] Blood Pressure 144/100 139/82 139/82 O2 Sat by Pulse 98 100 Oximetry 07/22/19 07/22/19 07/22/19 07:30 07:40 07:50 Temperature Pulse Rate 101 H 100 H 99 H Pulse Rate [ Anterior Bilateral Throughout] Pulse Rate [ From Monitor] Respiratory 23 23 24 Rate Respiratory Rate [Anterior Bilateral Throughout] Blood Pressure 120/61 120/61 120/61 O2 Sat by Pulse 99 100 99 Oximetry 07/22/19 07/22/19 07/22/19 08:00 08:10 08:20 Temperature 101.4 F H Pulse Rate 110 H 107 H 108 H Pulse Rate [ Anterior Bilateral Throughout] Pulse Rate [ From Monitor] Respiratory 22 15 20 Rate Respiratory Rate [Anterior Bilateral Throughout] Blood Pressure 130/80 139/82 139/82 O2 Sat by Pulse 98 100 100 Oximetry 07/22/19 07/22/19 07/22/19 08:30 08:40 08:50 Temperature Pulse Rate 114 H 110 H 104 H Pulse Rate [ Anterior Bilateral Throughout] Pulse Rate [ From Monitor] Respiratory 20 21 25 H Rate Respiratory Rate [Anterior Bilateral Throughout] Blood Pressure 139/82 153/90 153/90 O2 Sat by Pulse 100 100 98 Oximetry 07/22/19 09:00 Temperature Pulse Rate 101 H Pulse Rate [ Anterior Bilateral Throughout] Pulse Rate [ From Monitor] Respiratory 22 Rate Respiratory Rate [Anterior Bilateral Throughout] Blood Pressure 126/74 O2 Sat by Pulse 98 Oximetry Constitutional: comatose Eyes: non-icteric ENT: other (orally intubated and sedated.) Neck: supple Effort: normal Ascultation: Bilateral: diminished breath sounds Percussion: Bilateral: not dull Cardiovascular: regular rate and rhythm Gastrointestinal: normoactive bowel sounds, soft, non-tender Integumentary: normal Neurologic: unable to assess CBC and BMP: 07/18/19 03:35 07/18/19 03:35 ABG, PT/INR, D-dimer: ABG ABG pH 7.414 pH Units (7.350-7.450) 07/22/19 05:10 ABG pCO2 48.4 mm Hg 07/22/19 05:10 ABG pO2 120.1 mm Hg (80.0-90.0) H 07/22/19 05:10 ABG O2 Saturation 98.3 % (95.0-99.0) 07/22/19 05:10 Abnormal lab findings: Abnormal Labs 07/17/19 07/17/19 07/17/19 15:10 15:51 15:51 WBC 20.6 H RBC 5.66 H MCV 67 L MCH 20 L MCHC 29 L RDW 18.3 H Seg Neuts % (Manual) 84.0 H Lymphocytes % (Manual) 10.0 L Seg Neutrophils # Man 17.3 H Lymphocytes # (Manual) Basophils # (Manual) 0.2 H APTT 20.7 L ABG pH 7.147 L* ABG pO2 174.7 H ABG HCO3 ABG Base Excess -4.2 L ABG Hemoglobin 11.0 L Oxyhemoglobin 94.2 L Glucose POC Glucose Lactic Acid Calcium AST ALT Alkaline Phosphatase Albumin Urine WBC (Auto) Salicylates Acetaminophen 07/17/19 07/17/19 07/17/19 15:51 15:51 16:30 WBC RBC MCV MCH MCHC RDW Seg Neuts % (Manual) Lymphocytes % (Manual) Seg Neutrophils # Man Lymphocytes # (Manual) Basophils # (Manual) APTT ABG pH ABG pO2 ABG HCO3 ABG Base Excess ABG Hemoglobin Oxyhemoglobin Glucose 302 H POC Glucose Lactic Acid 4.70 H* Calcium 8.1 L AST 104 H ALT 57 H Alkaline Phosphatase 158 H Albumin 3.8 L Urine WBC (Auto) 12.0 H Salicylates Acetaminophen 07/17/19 07/17/19 07/17/19 18:20 18:20 18:20 WBC RBC MCV MCH MCHC RDW Seg Neuts % (Manual) Lymphocytes % (Manual) Seg Neutrophils # Man Lymphocytes # (Manual) Basophils # (Manual) APTT ABG pH ABG pO2 ABG HCO3 ABG Base Excess ABG Hemoglobin Oxyhemoglobin Glucose POC Glucose Lactic Acid 2.40 H* Calcium AST ALT Alkaline Phosphatase Albumin Urine WBC (Auto) Salicylates < 0.3 L Acetaminophen < 5.0 L 07/17/19 07/17/19 07/17/19 19:16 22:15 22:26 WBC RBC MCV MCH MCHC RDW Seg Neuts % (Manual) Lymphocytes % (Manual) Seg Neutrophils # Man Lymphocytes # (Manual) Basophils # (Manual) APTT ABG pH ABG pO2 104.1 H ABG HCO3 26.7 H ABG Base Excess ABG Hemoglobin 11.1 L Oxyhemoglobin Glucose POC Glucose 136 H Lactic Acid 2.40 H* Calcium AST ALT Alkaline Phosphatase Albumin Urine WBC (Auto) Salicylates Acetaminophen 07/18/19 07/18/19 07/18/19 03:35 03:35 04:28 WBC 21.9 H RBC 5.68 H MCV 66 L MCH 19 L MCHC RDW 17.7 H Seg Neuts % (Manual) 96.0 H Lymphocytes % (Manual) 4.0 L Seg Neutrophils # Man 21.0 H Lymphocytes # (Manual) 0.9 L Basophils # (Manual) APTT ABG pH ABG pO2 91.3 H ABG HCO3 29.3 H ABG Base Excess 3.1 H ABG Hemoglobin 10.9 L Oxyhemoglobin 94.9 L Glucose 157 H POC Glucose Lactic Acid Calcium 7.8 L AST 59 H ALT Alkaline Phosphatase Albumin 3.5 L Urine WBC (Auto) Salicylates Acetaminophen 07/18/19 07/18/19 07/19/19 12:04 18:09 00:04 WBC RBC MCV MCH MCHC RDW Seg Neuts % (Manual) Lymphocytes % (Manual) Seg Neutrophils # Man Lymphocytes # (Manual) Basophils # (Manual) APTT ABG pH ABG pO2 ABG HCO3 ABG Base Excess ABG Hemoglobin Oxyhemoglobin Glucose POC Glucose 171 H 136 H 120 H Lactic Acid Calcium AST ALT Alkaline Phosphatase Albumin Urine WBC (Auto) Salicylates Acetaminophen 07/19/19 07/19/19 07/19/19 05:00 08:30 12:23 WBC RBC MCV MCH MCHC RDW Seg Neuts % (Manual) Lymphocytes % (Manual) Seg Neutrophils # Man Lymphocytes # (Manual) Basophils # (Manual) APTT ABG pH 7.451 H ABG pO2 75.6 L ABG HCO3 28.1 H ABG Base Excess 3.8 H ABG Hemoglobin 11.3 L Oxyhemoglobin 94.6 L Glucose POC Glucose 118 H 131 H Lactic Acid Calcium AST ALT Alkaline Phosphatase Albumin Urine WBC (Auto) Salicylates Acetaminophen 07/20/19 07/20/19 07/20/19 00:21 04:10 18:07 WBC RBC MCV MCH MCHC RDW Seg Neuts % (Manual) Lymphocytes % (Manual) Seg Neutrophils # Man Lymphocytes # (Manual) Basophils # (Manual) APTT ABG pH ABG pO2 94.4 H ABG HCO3 28.9 H ABG Base Excess ABG Hemoglobin Oxyhemoglobin 94.8 L Glucose POC Glucose 114 H 111 H Lactic Acid Calcium AST ALT Alkaline Phosphatase Albumin Urine WBC (Auto) Salicylates Acetaminophen 07/21/19 07/21/19 07/21/19 00:42 03:40 05:56 WBC RBC MCV MCH MCHC RDW Seg Neuts % (Manual) Lymphocytes % (Manual) Seg Neutrophils # Man Lymphocytes # (Manual) Basophils # (Manual) APTT ABG pH ABG pO2 ABG HCO3 29.0 H ABG Base Excess 3.6 H ABG Hemoglobin 9.9 L Oxyhemoglobin 94.7 L Glucose POC Glucose 109 H 125 H Lactic Acid Calcium AST ALT Alkaline Phosphatase Albumin Urine WBC (Auto) Salicylates Acetaminophen 07/21/19 07/22/19 23:37 05:10 WBC RBC MCV MCH MCHC RDW Seg Neuts % (Manual) Lymphocytes % (Manual) Seg Neutrophils # Man Lymphocytes # (Manual) Basophils # (Manual) APTT ABG pH ABG pO2 120.1 H ABG HCO3 30.2 H ABG Base Excess 5.0 H ABG Hemoglobin 8.3 L Oxyhemoglobin Glucose POC Glucose 120 H Lactic Acid Calcium AST ALT Alkaline Phosphatase Albumin Urine WBC (Auto) Salicylates Acetaminophen
--- NOTE | 2019-07-22 09:50 | Consultation ---
History of Present Illness - Reason for Consult Consult date: 07/22/19 Fever in ICU Requesting physician: WOLF JEAN - History of Present Illness The patient is a 29-year-old female with morbid obesity who was admitted to the hospital on 07/17/2019 after she was found to have collapsed/fallen in a motel room. Upon evaluation, the patient was intubated by EMS and had a brief episode of respiratory arrest requiring CPR with return of spontaneous circulation immediately. On admission, there was concern for aspiration pneumonia and she was placed on IV cefepime and vancomycin. Continued fevers, infectious diseases was consulted. Currently, she remains intubated, has been unresponsive. Neurology also evaluated the patient and had concerns for possible anoxic brain injury secondary to cardiac arrest. Discussed with RN, no diarrhea. Remains unre sponsive. Tolerating tube feeds. Review of Systems: Limited due to AMS and intubation Past History Past Medical History: other (Asthma) Past Surgical History: Other (Unavailable) Social history: full code, other (Lives with boyfriend and extended stay motel) Family history: hypertension Medications and Allergies Allergies Allergy/AdvReac Type Severity Reaction Status Date / Time No Known Allergies Allergy Verified 07/17/19 14:56 Home Medications Medication Instructions Recorded Confirmed Last Taken Type No Known Home Medications [No 07/18/19 07/18/19 Unknown History Reported Home Medications] Active Meds: Active Medications Acetaminophen (Tylenol) 650 mg PO Q4H PRN PRN Reason: Pain MILD(1-3)/Fever >100.5/JORGE Last Admin: 07/22/19 07:57 Dose: 650 mg Documented by: Albuterol (Proventil) 2.5 mg IH Q3HRT PRN PRN Reason: Shortness Of Breath Albuterol/Ipratropium (Duoneb *Not For Prn Use*) 1 ampul IH Q6HRT [facility] Last Admin: 07/22/19 07:16 Dose: 1 ampul Documented by: Lipase/Protease/Amylase (Yanira Thao 10,500 Unit) 1 each FEEDTUBE PRN PRN PRN Reason: For Clogged Feeding Tube Budesonide (Pulmicort) 0.5 mg IH Q12HRT [facility] Last Admin: 07/22/19 07:16 Dose: 0.5 mg Documented by: Dextrose (D50w (25gm) Syringe) 0 ml IV Q30MIN PRN; Protocol PRN Reason: Hypoglycemia Enoxaparin Sodium (Enoxaparin) 40 mg SUB-Q QDAY@2200 CHIO Last Admin: 07/21/19 21:38 Dose: 40 mg Documented by: Famotidine (Pepcid) 20 mg PO BID [facility] Hydralazine HCl (Apresoline) 10 mg IV Q2H PRN PRN Reason: Blood Pressure Last Admin: 07/17/19 20:45 Dose: 10 mg Documented by: Hydromorphone HCl (Dilaudid) 0.5 mg IV Q3H PRN PRN Reason: Pain , Severe (7-10) Last Admin: 07/21/19 03:50 Dose: 0.5 mg Documented by: Nicardipine HCl 50 mg/ Sodium (Chloride) 250 mls @ 25 mls/hr IV TITR [facility]; Protocol Last Titration: 07/19/19 11:45 Dose: 0 mg/hr, 0 mls/hr Documented by: Levetiracetam 1,000 mg/ (Dextrose) 110 mls @ 400 mls/hr IV Q12HR [facility] Stop: 07/22/19 23:59 Last Admin: 07/21/19 21:39 Dose: 400 mls/hr Documented by: Cefepime HCl (Cefepime/Ns 1 Gm/100 Ml) 1 gm in 100 mls @ 200 mls/hr IV Q8HR [facility]; Protocol Insulin Human Lispro (Humalog) 0 unit SUB-Q Q6HR [facility]; Protocol Last Admin: 07/22/19 06:17 Dose: Not Given Documented by: Ketorolac Tromethamine (Toradol) 15 mg IV Q6H PRN PRN Reason: Pain, Mild (1-3) Stop: 07/22/19 20:18 Last Admin: 07/20/19 13:09 Dose: 15 mg Documented by: Labetalol HCl (Labetalol) 200 mg PO Q8H [facility] Last Admin: 07/22/19 02:38 Dose: Not Given Documented by: Levetiracetam (Keppra) 1,000 mg PO BID [facility] Nicotine (Habitrol) 21 mg TD QDAY [facility] Last Admin: 07/21/19 10:45 Dose: 21 mg Documented by: Ondansetron HCl (Zofran) 4 mg IV Q8H PRN PRN Reason: Nausea And Vomiting Oseltamivir Phosphate (Tamiflu) 75 mg PO BID [facility] Stop: 07/26/19 22:01 Scopolamine (Transderm-Scop) 1 each TD Q3D [facility] Last Admin: 07/21/19 10:45 Dose: 1 each Documented by: Simple Syrup (Simple Syrup) 15 ml FEEDTUBE PRN PRN PRN Reason: Hypoglycemia Simple Syrup (Simple Syrup) 30 ml FEEDTUBE PRN PRN PRN Reason: Hypoglycemia Sodium Bicarbonate (Sodium Bicarbonate) 325 mg FEEDTUBE PRN PRN PRN Reason: For Clogged Feeding Tube Sodium Chloride (Sodium Chloride Flush Syringe 10 Ml) 10 ml IV PRN PRN PRN Reason: LINE FLUSH Sodium Chloride (Sodium Chloride Flush Syringe 10 Ml) 10 ml IV BID [facility] Last Admin: 07/21/19 21:39 Dose: 10 ml Documented by: Valsartan (Diovan) 80 mg PO Q12HR [facility] Last Admin: 07/21/19 21:41 Dose: 80 mg Documented by: Physical Examination - Physical Exam Narrative exam: Physical Exam: Constitutional: sedated, intubated. morbid obesity Head, Ears, Nose: Normocephalic, atraumatic. External ears, nose normal Eyes: Conjunctivae/corneas clear. No icterus. No ptosis. Neck: intubated. Oral: intubated Cardiovascular: S1, S2 normal. Respiratory: Good air entry, clear to auscultation bilaterally GI: Soft, non-tender; bowel sounds normal. No peritoneal signs Musculoskeletal: No pedal edema, no cyanosis. Skin: No rash or abscess Hem/Lymphatic: No palpable cervical or supraclavicular nodes. No lymphangitis Psych: no agitation Neurological: sedated, intubated, on vent - Constitutional Vitals: Vital Signs Temp Pulse Resp BP Pulse Ox 101.4 F H 101 H 22 126/74 98 07/22/19 08:00 07/22/19 09:00 07/22/19 09:00 07/22/19 09:00 07/22/19 09:00 Temperature -Last 24 Hours Temperature 101.4 F Temperature 100.1 F Temperature 102.4 F Temperature 101.1 F Temperature 100.8 F Temperature 99.8 F Results - Labs CBC & Chem 7: 07/22/19 08:58 07/22/19 08:58 Labs: Abnormal lab results 07/21/19 07/22/19 07/22/19 Range/Units 23:37 05:10 08:58 WBC 17.0 H (4.5-11.0) K/mm3 Hgb 9.3 L (10.1-14.3) gm/dl MCV 64 L (79-97) fl MCH 19 L (28-32) pg RDW 17.8 H (13.2-15.2) % ABG pO2 120.1 H (80.0-90.0) mm Hg ABG HCO3 30.2 H (20.0-26.0) mmol/L ABG Base Excess 5.0 H (-2.0-3.0) mmol/L ABG Hemoglobin 8.3 L (12.0-16.0) gm/dl Creatinine (0.7-1.2) mg/dL Glucose (65-100) mg/dL POC Glucose 120 H (70-105) AST (5-40) units/L Albumin (3.9-5) g/dL 07/22/19 Range/Units 08:58 WBC (4.5-11.0) K/mm3 Hgb (10.1-14.3) gm/dl MCV (79-97) fl MCH (28-32) pg RDW (13.2-15.2) % ABG pO2 (80.0-90.0) mm Hg ABG HCO3 (20.0-26.0) mmol/L ABG Base Excess (-2.0-3.0) mmol/L ABG Hemoglobin (12.0-16.0) gm/dl Creatinine 0.5 L (0.7-1.2) mg/dL Glucose 123 H (65-100) mg/dL POC Glucose (70-105) AST 66 H (5-40) units/L Albumin 3.4 L (3.9-5) g/dL - Imaging and Cardiology CT scan - chest: report reviewed, image reviewed (bilateral basal pneumonia) Assessment and Plan Cultures: 07/17/2019 blood culture: No growth 07/17/2019 urine culture: No growth 07/17/2019 light growth of respiratory kate 07/21/2019 blood culture: In process A/P: 29/F with morbid obesity admitted with: #Sepsis: Persistent fever and leukocytosis, probably from bilateral pneumonia. Central fevers are also possible given her concern for anoxic brain injury. Agree with ruling out influenza. Meningitis / DIRECTIONAL DRILLER process cannot be ruled out, patient is over the weight limit for MRI brain, given her morbid obesity, will need LP under fluoroscopic guidance when able to. Meanwhile, will treat empirically anyways with abx. #Acute hypoxic respiratory failure: On the vent. #Acute encephalopathy: Question for anoxic brain injury. #Morbid obesity: Severe. Recs: Increased cefepime dose to 2 g every 8 hours Vancomycin discontinued IV Flagyl added Agree with empiric Tamiflu until influenza is ruled out Recheck CBC If fever persists, will need LP under fluoroscopic guidance when able to. Meanwhile, will treat empirically anyways with abx. Paulina Le MD, FACP [facility] ([facility] C: [phone] O: [phone] F: [phone]
[2019-07-22] MEDS: FAMOTIDINE 20 MG TAB PO SCH ×2 (09:57→21:26)
[2019-07-22] MEDS: VALSARTAN 40 MG TAB PO SCH ×2 (09:57→21:21)
[2019-07-22] MEDS: CEFEPIME/NS 2 GM/100 ML 2 GM/100 ML BAG IV SCH ×3 (09:58→21:20)
[2019-07-22] MEDS: metroNIDAZOLE/NS 500 MG/100 ML 500 MG/100 ML BAG IV SCH ×3 (09:58→21:20)
[2019-07-22] MEDS: levETIRAcetam 1,000 MG in DEXTROSE 5% IN WATER 100 ML IV SCH (09:58)
[2019-07-22] MEDS: NICOTINE 21 MG/24 HR PATCH TD SCH (10:01)
[2019-07-22] MEDS: OSELTAMIVIR PHOSPHATE 30 MG/5 ML ORALSYR PO SCH ×2 (11:32→21:23)
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
[2019-07-22] MEDS: LORazepam 2 MG/ML VIAL IV PRN (15:05)
[2019-07-22] MEDS: ENOXAPARIN 40 MG/0.4 ML INJ SUB-Q SCH (21:20)
[2019-07-23] MEDS: LORazepam 2 MG/ML VIAL IV PRN ×2 (00:23→06:57)
[2019-07-23] MEDS: ACETAMINOPHEN 325 MG TAB PO PRN ×4 (00:24→22:54)
[2019-07-23] MEDS: INSULIN LISPRO 100 UNIT/ML SUB-Q SCH ×4 (00:25→18:16)
[2019-07-23] MEDS: levETIRAcetam 1,000 MG in DEXTROSE 5% IN WATER 100 ML IV SCH (00:29)
[2019-07-23] MEDS: IPRATROPIUM/ALBUTEROL SULFATE 3 ML AMPUL.NEB IH SCH ×4 (02:29→20:49)
[2019-07-23 04:15] LABS: ABG Base Excess 4.2 mmol/L (-2.0-3.0); ABG HCO3 28.9 mmol/L (20.0-26.0); ABG Methemoglobin 0.6 % (0.0-1.5); ABG Oxygen Saturation 98.5 % (95.0-99.0); ABG PH 7.435 pH Units (7.350-7.450); ABG PO2 126.1 mm Hg (80.0-90.0)
[2019-07-23] MEDS: CEFEPIME/NS 2 GM/100 ML 2 GM/100 ML BAG IV SCH ×3 (05:38→23:00)
[2019-07-23] MEDS: metroNIDAZOLE/NS 500 MG/100 ML 500 MG/100 ML BAG IV SCH ×3 (05:38→22:28)
[2019-07-23 06:11] LABS: Mean Corpuscular HGB Conc 29 % (30-34); Platelet Count 204 K/mm3 (140-440); Red Blood Count 4.68 M/mm3 (3.65-5.03)
[2019-07-23 06:20] LABS: Hematocrit 30.5 % (30.3-42.9); Mean Corpuscular Volume 65 fl (79-97)
[2019-07-23 06:37] LABS: Alanine Aminotransferase 57 units/L (7-56); Albumin 3.3 g/dL (3.9-5); BUN/Creatinine Ratio 26; Blood Urea Nitrogen 13 mg/dL (7-17); Calcium 9.2 mg/dL (8.4-10.2); Hemolysis Index 16
[2019-07-23 07:06] LABS: Band Neutrophils # (Manual) 0.2 K/mm3; Basophils % (Manual) 0 % (0.0-1.8); Total Cells Counted 100
[2019-07-23 07:07] LABS: Anisocytosis 1+; Hypochromasia 2+
[2019-07-23 07:08] LABS: Platelet Estimate Consistent w Auto
[2019-07-23] MEDS: BUDESONIDE 0.5 MG/2 ML NEBU IH SCH ×2 (08:49→20:49)
--- NOTE | 2019-07-23 09:27 | Progress Note ---
Assessment and Plan hypoxic brain injury, severe w myoclonus recurrent and fevers, extensor posturing and downward gaze, known cerebral edema from prolonged hy poxia/downtime prior to ACLS, concern for progression/worsening of brain swelling / ? herniation, unstable pt is not turning the corner toward recovery, will do stat CT head and then check stat EEG will increase keppra for now for poss. of status epil MRI b not poss d/t weight, will recheck weight if myoclonus becomes problematic , then may have to go towards benzo drip keep hydrated to avoid rhab -- status epil: seen at bedside ativan 2 mg every two min x 3 doses until seizure activity stops stat VPA 1000 keppra 1500 will consider benzo drip vs propofol stat EEG Subjective Date of service: 07/23/19 Principal diagnosis: Anoxic brain injury Interval history: myoclonus last night today stiff extensors concern for posturing , downward gaze, sweating no grimace to pain no eye lid raise to stim, verbal , tactile, nox upgoing toes neck stiff ativan given for myoclonus keppra on board fevers no improvement of neuro status family not in room cannot do MRI d/t weight/body hab. intubated breathing a/c ---- update during this am, was called to bedside to witness myoclonus/sz, pt is having clinically R sided > L seizure like activity twitching involve neck arm leg this activity is not stopping will pursuit epi status treatment stat Objective - Exam Narrative Exam: see above pupils reactive neck supple downward gaze, then primary gaze w dolls intact - Vital Sign Vital Signs - 12hr 07/22/19 07/22/19 07/22/19 21:21 21:30 21:40 Temperature Pulse Rate 101 H 101 H 118 H Pulse Rate [ Anterior Bilateral Throughout] Pulse Rate [ From Monitor] Respiratory 24 17 Rate Respiratory Rate [Anterior Bilateral Throughout] Blood Pressure 118/63 120/62 120/62 O2 Sat by Pulse 99 100 Oximetry 07/22/19 07/22/19 07/22/19 21:50 22:00 22:10 Temperature Pulse Rate 108 H 104 H 104 H Pulse Rate [ Anterior Bilateral Throughout] Pulse Rate [ From Monitor] Respiratory 24 24 24 Rate Respiratory Rate [Anterior Bilateral Throughout] Blood Pressure 120/62 112/58 112/58 O2 Sat by Pulse 100 100 100 Oximetry 07/22/19 07/22/19 07/22/19 22:20 22:30 22:40 Temperature Pulse Rate 103 H 103 H 103 H Pulse Rate [ Anterior Bilateral Throughout] Pulse Rate [ From Monitor] Respiratory 23 24 24 Rate Respiratory Rate [Anterior Bilateral Throughout] Blood Pressure 112/58 113/56 113/56 O2 Sat by Pulse 100 100 100 Oximetry 07/22/19 07/22/19 07/22/19 22:50 23:00 23:06 Temperature Pulse Rate 101 H 99 H 98 H Pulse Rate [ Anterior Bilateral Throughout] Pulse Rate [ From Monitor] Respiratory 24 24 24 Rate Respiratory Rate [Anterior Bilateral Throughout] Blood Pressure 113/56 116/65 116/65 O2 Sat by Pulse 100 100 100 Oximetry 07/22/19 07/22/19 07/22/19 23:10 23:20 23:30 Temperature Pulse Rate 97 H 98 H 98 H Pulse Rate [ Anterior Bilateral Throughout] Pulse Rate [ From Monitor] Respiratory 24 23 24 Rate Respiratory Rate [Anterior Bilateral Throughout] Blood Pressure 116/65 116/65 114/67 O2 Sat by Pulse 100 100 100 Oximetry 07/22/19 07/22/19 07/22/19 23:40 23:50 23:56 Temperature 100.7 F H Pulse Rate 102 H 99 H Pulse Rate [ Anterior Bilateral Throughout] Pulse Rate [ From Monitor] Respiratory 24 23 Rate Respiratory Rate [Anterior Bilateral Throughout] Blood Pressure 114/67 114/67 O2 Sat by Pulse 100 100 Oximetry 07/23/19 07/23/19 07/23/19 00:00 00:10 00:20 Temperature Pulse Rate 98 H 119 H 106 H Pulse Rate [ Anterior Bilateral Throughout] Pulse Rate [ 102 H From Monitor] Respiratory 24 21 23 Rate Respiratory Rate [Anterior Bilateral Throughout] Blood Pressure 120/66 120/66 120/66 O2 Sat by Pulse 100 100 100 Oximetry 07/23/19 07/23/19 07/23/19 00:30 00:40 00:50 Temperature Pulse Rate 106 H 106 H 107 H Pulse Rate [ Anterior Bilateral Throughout] Pulse Rate [ From Monitor] Respiratory 24 24 23 Rate Respiratory Rate [Anterior Bilateral Throughout] Blood Pressure 112/59 112/59 112/59 O2 Sat by Pulse 100 100 100 Oximetry 07/23/19 07/23/19 07/23/19 01:00 01:10 01:20 Temperature Pulse Rate 107 H 109 H 111 H Pulse Rate [ Anterior Bilateral Throughout] Pulse Rate [ From Monitor] Respiratory 24 18 24 Rate Respiratory Rate [Anterior Bilateral Throughout] Blood Pressure 117/67 117/67 117/67 O2 Sat by Pulse 100 100 100 Oximetry 07/23/19 07/23/19 07/23/19 01:30 01:40 01:50 Temperature Pulse Rate 114 H 111 H 109 H Pulse Rate [ Anterior Bilateral Throughout] Pulse Rate [ From Monitor] Respiratory 24 24 24 Rate Respiratory Rate [Anterior Bilateral Throughout] Blood Pressure 124/65 124/65 124/65 O2 Sat by Pulse 100 100 100 Oximetry 07/23/19 07/23/19 07/23/19 02:00 02:10 02:20 Temperature Pulse Rate 112 H 108 H 107 H Pulse Rate [ Anterior Bilateral Throughout] Pulse Rate [ From Monitor] Respiratory 24 24 17 Rate Respiratory Rate [Anterior Bilateral Throughout] Blood Pressure 121/70 121/70 121/70 O2 Sat by Pulse 100 100 100 Oximetry 07/23/19 07/23/19 07/23/19 02:30 02:40 02:50 Temperature Pulse Rate 108 H 101 H Pulse Rate [ 109 H Anterior Bilateral Throughout] Pulse Rate [ From Monitor] Respiratory 26 H 16 Rate Respiratory 24 Rate [Anterior Bilateral Throughout] Blood Pressure 128/72 128/72 128/72 O2 Sat by Pulse 97 97 100 Oximetry 07/23/19 07/23/19 07/23/19 03:00 03:10 03:20 Temperature Pulse Rate 107 H 109 H 101 H Pulse Rate [ Anterior Bilateral Throughout] Pulse Rate [ From Monitor] Respiratory 35 H 35 H 24 Rate Respiratory Rate [Anterior Bilateral Throughout] Blood Pressure 128/72 119/65 119/65 O2 Sat by Pulse 100 100 100 Oximetry 07/23/19 07/23/19 07/23/19 03:30 03:38 03:40 Temperature 99.4 F Pulse Rate 97 H 97 H Pulse Rate [ Anterior Bilateral Throughout] Pulse Rate [ From Monitor] Respiratory 24 24 Rate Respiratory Rate [Anterior Bilateral Throughout] Blood Pressure 116/58 116/58 O2 Sat by Pulse 100 100 Oximetry 07/23/19 07/23/19 07/23/19 03:50 03:59 04:00 Temperature Pulse Rate 95 H 98 H 97 H Pulse Rate [ Anterior Bilateral Throughout] Pulse Rate [ 102 H From Monitor] Respiratory 24 24 Rate Respiratory Rate [Anterior Bilateral Throughout] Blood Pressure 116/58 116/58 116/58 O2 Sat by Pulse 100 100 Oximetry 07/23/19 07/23/19 07/23/19 04:10 04:20 04:30 Temperature Pulse Rate 95 H 94 H 90 Pulse Rate [ Anterior Bilateral Throughout] Pulse Rate [ From Monitor] Respiratory 24 24 24 Rate Respiratory Rate [Anterior Bilateral Throughout] Blood Pressure 119/65 119/65 118/66 O2 Sat by Pulse 100 100 100 Oximetry 07/23/19 07/23/19 07/23/19 04:40 04:50 05:00 Temperature Pulse Rate 93 H 92 H 91 H Pulse Rate [ Anterior Bilateral Throughout] Pulse Rate [ From Monitor] Respiratory 24 24 24 Rate Respiratory Rate [Anterior Bilateral Throughout] Blood Pressure 118/66 118/66 125/67 O2 Sat by Pulse 100 100 100 Oximetry 07/23/19 07/23/19 07/23/19 05:10 05:20 05:30 Temperature Pulse Rate 91 H 91 H 92 H Pulse Rate [ Anterior Bilateral Throughout] Pulse Rate [ From Monitor] Respiratory 24 24 24 Rate Respiratory Rate [Anterior Bilateral Throughout] Blood Pressure 125/67 125/67 121/66 O2 Sat by Pulse 100 100 100 Oximetry 07/23/19 07/23/19 07/23/19 05:40 05:50 06:00 Temperature Pulse Rate 102 H 110 H 111 H Pulse Rate [ Anterior Bilateral Throughout] Pulse Rate [ From Monitor] Respiratory 18 15 23 Rate Respiratory Rate [Anterior Bilateral Throughout] Blood Pressure 121/66 121/66 136/64 O2 Sat by Pulse 98 97 99 Oximetry 07/23/19 07/23/19 07/23/19 06:10 06:20 06:30 Temperature Pulse Rate 100 H 106 H 110 H Pulse Rate [ Anterior Bilateral Throughout] Pulse Rate [ From Monitor] Respiratory 21 21 20 Rate Respiratory Rate [Anterior Bilateral Throughout] Blood Pressure 121/66 121/66 146/71 O2 Sat by Pulse 100 98 98 Oximetry 07/23/19 07/23/19 07/23/19 06:40 06:50 07:00 Temperature Pulse Rate 116 H 114 H 102 H Pulse Rate [ Anterior Bilateral Throughout] Pulse Rate [ From Monitor] Respiratory 22 28 H 24 Rate Respiratory Rate [Anterior Bilateral Throughout] Blood Pressure 146/71 146/71 126/62 O2 Sat by Pulse 98 98 99 Oximetry 07/23/19 07/23/19 07/23/19 07:10 07:20 07:30 Temperature Pulse Rate 103 H 103 H 101 H Pulse Rate [ Anterior Bilateral Throughout] Pulse Rate [ From Monitor] Respiratory 24 24 24 Rate Respiratory Rate [Anterior Bilateral Throughout] Blood Pressure 126/62 126/62 122/60 O2 Sat by Pulse 99 99 99 Oximetry 07/23/19 07/23/19 07/23/19 07:40 07:50 08:00 Temperature 101.2 F H Pulse Rate 105 H 100 H 102 H Pulse Rate [ Anterior Bilateral Throughout] Pulse Rate [ 102 H From Monitor] Respiratory 24 24 24 Rate Respiratory Rate [Anterior Bilateral Throughout] Blood Pressure 146/71 146/71 120/58 O2 Sat by Pulse 99 99 99 Oximetry 07/23/19 07/23/19 07/23/19 08:10 08:20 08:30 Temperature Pulse Rate 98 H 103 H 103 H Pulse Rate [ Anterior Bilateral Throughout] Pulse Rate [ From Monitor] Respiratory 24 24 24 Rate Respiratory Rate [Anterior Bilateral Throughout] Blood Pressure 120/58 120/58 127/61 O2 Sat by Pulse 99 99 99 Oximetry 07/23/19 07/23/19 08:45 08:49 Temperature Pulse Rate 109 H Pulse Rate [ 113 H Anterior Bilateral Throughout] Pulse Rate [ From Monitor] Respiratory Rate Respiratory 25 H Rate [Anterior Bilateral Throughout] Blood Pressure 127/61 O2 Sat by Pulse 99 Oximetry - Laboratory Findings CBC and BMP: 07/23/19 05:48 07/23/19 05:48 Abnormal Lab Findings: Abnormal Labs 07/17/19 07/17/19 07/17/19 15:10 15:51 15:51 WBC 20.6 H RBC 5.66 H Hgb MCV 67 L MCH 20 L MCHC 29 L RDW 18.3 H Seg Neuts % (Manual) 84.0 H Lymphocytes % (Manual) 10.0 L Monocytes % (Manual) Eosinophils % (Manual) Seg Neutrophils # Man 17.3 H Lymphocytes # (Manual) Monocytes # (Manual) Eosinophils # (Manual) Basophils # (Manual) 0.2 H APTT 20.7 L ABG pH 7.147 L* ABG pO2 174.7 H ABG HCO3 ABG Base Excess -4.2 L ABG Hemoglobin 11.0 L Oxyhemoglobin 94.2 L Sodium Creatinine Glucose POC Glucose Lactic Acid Calcium AST ALT Alkaline Phosphatase Albumin Urine WBC (Auto) Salicylates Acetaminophen 07/17/19 07/17/19 07/17/19 15:51 15:51 16:30 WBC RBC Hgb MCV MCH MCHC RDW Seg Neuts % (Manual) Lymphocytes % (Manual) Monocytes % (Manual) Eosinophils % (Manual) Seg Neutrophils # Man Lymphocytes # (Manual) Monocytes # (Manual) Eosinophils # (Manual) Basophils # (Manual) APTT ABG pH ABG pO2 ABG HCO3 ABG Base Excess ABG Hemoglobin Oxyhemoglobin Sodium Creatinine Glucose 302 H POC Glucose Lactic Acid 4.70 H* Calcium 8.1 L AST 104 H ALT 57 H Alkaline Phosphatase 158 H Albumin 3.8 L Urine WBC (Auto) 12.0 H Salicylates Acetaminophen 07/17/19 07/17/19 07/17/19 18:20 18:20 18:20 WBC RBC Hgb MCV MCH MCHC RDW Seg Neuts % (Manual) Lymphocytes % (Manual) Monocytes % (Manual) Eosinophils % (Manual) Seg Neutrophils # Man Lymphocytes # (Manual) Monocytes # (Manual) Eosinophils # (Manual) Basophils # (Manual) APTT ABG pH ABG pO2 ABG HCO3 ABG Base Excess ABG Hemoglobin Oxyhemoglobin Sodium Creatinine Glucose POC Glucose Lactic Acid 2.40 H* Calcium AST ALT Alkaline Phosphatase Albumin Urine WBC (Auto) Salicylates < 0.3 L Acetaminophen < 5.0 L 07/17/19 07/17/19 07/17/19 19:16 22:15 22:26 WBC RBC Hgb MCV MCH MCHC RDW Seg Neuts % (Manual) Lymphocytes % (Manual) Monocytes % (Manual) Eosinophils % (Manual) Seg Neutrophils # Man Lymphocytes # (Manual) Monocytes # (Manual) Eosinophils # (Manual) Basophils # (Manual) APTT ABG pH ABG pO2 104.1 H ABG HCO3 26.7 H ABG Base Excess ABG Hemoglobin 11.1 L Oxyhemoglobin Sodium Creatinine Glucose POC Glucose 136 H Lactic Acid 2.40 H* Calcium AST ALT Alkaline Phosphatase Albumin Urine WBC (Auto) Salicylates Acetaminophen 07/18/19 07/18/19 07/18/19 03:35 03:35 04:28 WBC 21.9 H RBC 5.68 H Hgb MCV 66 L MCH 19 L MCHC RDW 17.7 H Seg Neuts % (Manual) 96.0 H Lymphocytes % (Manual) 4.0 L Monocytes % (Manual) Eosinophils % (Manual) Seg Neutrophils # Man 21.0 H Lymphocytes # (Manual) 0.9 L Monocytes # (Manual) Eosinophils # (Manual) Basophils # (Manual) APTT ABG pH ABG pO2 91.3 H ABG HCO3 29.3 H ABG Base Excess 3.1 H ABG Hemoglobin 10.9 L Oxyhemoglobin 94.9 L Sodium Creatinine Glucose 157 H POC Glucose Lactic Acid Calcium 7.8 L AST 59 H ALT Alkaline Phosphatase Albumin 3.5 L Urine WBC (Auto) Salicylates Acetaminophen 07/18/19 07/18/19 07/19/19 12:04 18:09 00:04 WBC RBC Hgb MCV MCH MCHC RDW Seg Neuts % (Manual) Lymphocytes % (Manual) Monocytes % (Manual) Eosinophils % (Manual) Seg Neutrophils # Man Lymphocytes # (Manual) Monocytes # (Manual) Eosinophils # (Manual) Basophils # (Manual) APTT ABG pH ABG pO2 ABG HCO3 ABG Base Excess ABG Hemoglobin Oxyhemoglobin Sodium Creatinine Glucose POC Glucose 171 H 136 H 120 H Lactic Acid Calcium AST ALT Alkaline Phosphatase Albumin Urine WBC (Auto) Salicylates Acetaminophen 07/19/19 07/19/19 07/19/19 05:00 08:30 12:23 WBC RBC Hgb MCV MCH MCHC RDW Seg Neuts % (Manual) Lymphocytes % (Manual) Monocytes % (Manual) Eosinophils % (Manual) Seg Neutrophils # Man Lymphocytes # (Manual) Monocytes # (Manual) Eosinophils # (Manual) Basophils # (Manual) APTT ABG pH 7.451 H ABG pO2 75.6 L ABG HCO3 28.1 H ABG Base Excess 3.8 H ABG Hemoglobin 11.3 L Oxyhemoglobin 94.6 L Sodium Creatinine Glucose POC Glucose 118 H 131 H Lactic Acid Calcium AST ALT Alkaline Phosphatase Albumin Urine WBC (Auto) Salicylates Acetaminophen 07/20/19 07/20/19 07/20/19 00:21 04:10 18:07 WBC RBC Hgb MCV MCH MCHC RDW Seg Neuts % (Manual) Lymphocytes % (Manual) Monocytes % (Manual) Eosinophils % (Manual) Seg Neutrophils # Man Lymphocytes # (Manual) Monocytes # (Manual) Eosinophils # (Manual) Basophils # (Manual) APTT ABG pH ABG pO2 94.4 H ABG HCO3 28.9 H ABG Base Excess ABG Hemoglobin Oxyhemoglobin 94.8 L Sodium Creatinine Glucose POC Glucose 114 H 111 H Lactic Acid Calcium AST ALT Alkaline Phosphatase Albumin Urine WBC (Auto) Salicylates Acetaminophen 07/21/19 07/21/19 07/21/19 00:42 03:40 05:56 WBC RBC Hgb MCV MCH MCHC RDW Seg Neuts % (Manual) Lymphocytes % (Manual) Monocytes % (Manual) Eosinophils % (Manual) Seg Neutrophils # Man Lymphocytes # (Manual) Monocytes # (Manual) Eosinophils # (Manual) Basophils # (Manual) APTT ABG pH ABG pO2 ABG HCO3 29.0 H ABG Base Excess 3.6 H ABG Hemoglobin 9.9 L Oxyhemoglobin 94.7 L Sodium Creatinine Glucose POC Glucose 109 H 125 H Lactic Acid Calcium AST ALT Alkaline Phosphatase Albumin Urine WBC (Auto) Salicylates Acetaminophen 07/21/19 07/22/19 07/22/19 23:37 05:10 08:58 WBC 17.0 H RBC Hgb 9.3 L MCV 64 L MCH 19 L MCHC RDW 17.8 H Seg Neuts % (Manual) Lymphocytes % (Manual) Monocytes % (Manual) Eosinophils % (Manual) Seg Neutrophils # Man Lymphocytes # (Manual) Monocytes # (Manual) Eosinophils # (Manual) Basophils # (Manual) APTT ABG pH ABG pO2 120.1 H ABG HCO3 30.2 H ABG Base Excess 5.0 H ABG Hemoglobin 8.3 L Oxyhemoglobin Sodium Creatinine Glucose POC Glucose 120 H Lactic Acid Calcium AST ALT Alkaline Phosphatase Albumin Urine WBC (Auto) Salicylates Acetaminophen 07/22/19 07/22/19 07/23/19 08:58 12:11 04:00 WBC RBC Hgb MCV MCH MCHC RDW Seg Neuts % (Manual) Lymphocytes % (Manual) Monocytes % (Manual) Eosinophils % (Manual) Seg Neutrophils # Man Lymphocytes # (Manual) Monocytes # (Manual) Eosinophils # (Manual) Basophils # (Manual) APTT ABG pH ABG pO2 126.1 H ABG HCO3 28.9 H ABG Base Excess 4.2 H ABG Hemoglobin 7.8 L Oxyhemoglobin Sodium Creatinine 0.5 L Glucose 123 H POC Glucose 112 H Lactic Acid Calcium AST 66 H ALT Alkaline Phosphatase Albumin 3.4 L Urine WBC (Auto) Salicylates Acetaminophen 07/23/19 07/23/19 05:48 05:48 WBC 16.2 H RBC Hgb 9.0 L MCV 65 L MCH 19 L MCHC 29 L RDW 18.0 H Seg Neuts % (Manual) Lymphocytes % (Manual) Monocytes % (Manual) 9.0 H Eosinophils % (Manual) 6.0 H Seg Neutrophils # Man 11.3 H Lymphocytes # (Manual) Monocytes # (Manual) 1.5 H Eosinophils # (Manual) 1.0 H Basophils # (Manual) APTT ABG pH ABG pO2 ABG HCO3 ABG Base Excess ABG Hemoglobin Oxyhemoglobin Sodium 146 H Creatinine 0.5 L Glucose POC Glucose Lactic Acid Calcium AST 68 H ALT 57 H Alkaline Phosphatase Albumin 3.3 L Urine WBC (Auto) Salicylates Acetaminophen
[2019-07-23] MEDS: LORazepam 2 MG/ML VIAL IV SCH ×3 (09:45→16:15)
[2019-07-23] MEDS ORDERED: VALPROATE SODIUM 1,000 MG in SODIUM CHLORIDE 0.9% 100 ML IV STA (09:47)
[2019-07-23] MEDS: OSELTAMIVIR PHOSPHATE 30 MG/5 ML ORALSYR PO SCH ×2 (09:48→22:29)
[2019-07-23] MEDS: NICOTINE 21 MG/24 HR PATCH TD SCH (09:48)
[2019-07-23] MEDS: FAMOTIDINE 20 MG TAB PO SCH ×2 (09:49→22:29)
[2019-07-23] MEDS ORDERED: levETIRAcetam 500 MG/5 ML ORAL LIQD PO SCH (10:00)
--- NOTE | 2019-07-23 10:10 | Progress Note ---
Assessment and Plan 29 y/o female with cardiac arrest, asystole, exact etiology unknown now on vent support. 1. Reviewed and discussed with neuro. Concern for status. Follow up EEG report. Obtain repeat Head CT. 2. Had family meeting on yesterday and neuro spoke with them after I did on yesterday. They (family) want to persue trach and peg. Will consult surgery once neurologic issues have been sorted out. 3. Continue supportive care 4. Poor prognosis. 5. Patient may need Propofol drip for burst suppression if in status on EEG CCt 31 minutes. Subjective Date of service: 07/23/19 Principal diagnosis: Anoxic brain injury Interval history: Called by nursing yesterday for concern for seizure like activity. Was out of hospital so not able to evaluate. Ordered ATivan and patient received one dose. This am at bedside with neurology and her exam has changed compared to yesterday. Ordering stat head CT and stat EEG Objective Vital Signs - 12hr 07/22/19 07/22/19 07/22/19 22:10 22:20 22:30 Temperature Pulse Rate 104 H 103 H 103 H Pulse Rate [ Anterior Bilateral Throughout] Pulse Rate [ From Monitor] Respiratory 24 23 24 Rate Respiratory Rate [Anterior Bilateral Throughout] Blood Pressure 112/58 112/58 113/56 O2 Sat by Pulse 100 100 100 Oximetry 07/22/19 07/22/19 07/22/19 22:40 22:50 23:00 Temperature Pulse Rate 103 H 101 H 99 H Pulse Rate [ Anterior Bilateral Throughout] Pulse Rate [ From Monitor] Respiratory 24 24 24 Rate Respiratory Rate [Anterior Bilateral Throughout] Blood Pressure 113/56 113/56 116/65 O2 Sat by Pulse 100 100 100 Oximetry 07/22/19 07/22/19 07/22/19 23:06 23:10 23:20 Temperature Pulse Rate 98 H 97 H 98 H Pulse Rate [ Anterior Bilateral Throughout] Pulse Rate [ From Monitor] Respiratory 24 24 23 Rate Respiratory Rate [Anterior Bilateral Throughout] Blood Pressure 116/65 116/65 116/65 O2 Sat by Pulse 100 100 100 Oximetry 07/22/19 07/22/19 07/22/19 23:30 23:40 23:50 Temperature Pulse Rate 98 H 102 H 99 H Pulse Rate [ Anterior Bilateral Throughout] Pulse Rate [ From Monitor] Respiratory 24 24 23 Rate Respiratory Rate [Anterior Bilateral Throughout] Blood Pressure 114/67 114/67 114/67 O2 Sat by Pulse 100 100 100 Oximetry 07/22/19 07/23/19 07/23/19 23:56 00:00 00:10 Temperature 100.7 F H Pulse Rate 98 H 119 H Pulse Rate [ Anterior Bilateral Throughout] Pulse Rate [ 102 H From Monitor] Respiratory 24 21 Rate Respiratory Rate [Anterior Bilateral Throughout] Blood Pressure 120/66 120/66 O2 Sat by Pulse 100 100 Oximetry 07/23/19 07/23/19 07/23/19 00:20 00:30 00:40 Temperature Pulse Rate 106 H 106 H 106 H Pulse Rate [ Anterior Bilateral Throughout] Pulse Rate [ From Monitor] Respiratory 23 24 24 Rate Respiratory Rate [Anterior Bilateral Throughout] Blood Pressure 120/66 112/59 112/59 O2 Sat by Pulse 100 100 100 Oximetry 07/23/19 07/23/19 07/23/19 00:50 01:00 01:10 Temperature Pulse Rate 107 H 107 H 109 H Pulse Rate [ Anterior Bilateral Throughout] Pulse Rate [ From Monitor] Respiratory 23 24 18 Rate Respiratory Rate [Anterior Bilateral Throughout] Blood Pressure 112/59 117/67 117/67 O2 Sat by Pulse 100 100 100 Oximetry 07/23/19 07/23/19 07/23/19 01:20 01:30 01:40 Temperature Pulse Rate 111 H 114 H 111 H Pulse Rate [ Anterior Bilateral Throughout] Pulse Rate [ From Monitor] Respiratory 24 24 24 Rate Respiratory Rate [Anterior Bilateral Throughout] Blood Pressure 117/67 124/65 124/65 O2 Sat by Pulse 100 100 100 Oximetry 07/23/19 07/23/19 07/23/19 01:50 02:00 02:10 Temperature Pulse Rate 109 H 112 H 108 H Pulse Rate [ Anterior Bilateral Throughout] Pulse Rate [ From Monitor] Respiratory 24 24 24 Rate Respiratory Rate [Anterior Bilateral Throughout] Blood Pressure 124/65 121/70 121/70 O2 Sat by Pulse 100 100 100 Oximetry 07/23/19 07/23/19 07/23/19 02:20 02:30 02:40 Temperature Pulse Rate 107 H 108 H Pulse Rate [ 109 H Anterior Bilateral Throughout] Pulse Rate [ From Monitor] Respiratory 17 26 H Rate Respiratory 24 Rate [Anterior Bilateral Throughout] Blood Pressure 121/70 128/72 128/72 O2 Sat by Pulse 100 97 97 Oximetry 07/23/19 07/23/19 07/23/19 02:50 03:00 03:10 Temperature Pulse Rate 101 H 107 H 109 H Pulse Rate [ Anterior Bilateral Throughout] Pulse Rate [ From Monitor] Respiratory 16 35 H 35 H Rate Respiratory Rate [Anterior Bilateral Throughout] Blood Pressure 128/72 128/72 119/65 O2 Sat by Pulse 100 100 100 Oximetry 07/23/19 07/23/19 07/23/19 03:20 03:30 03:38 Temperature 99.4 F Pulse Rate 101 H 97 H Pulse Rate [ Anterior Bilateral Throughout] Pulse Rate [ From Monitor] Respiratory 24 24 Rate Respiratory Rate [Anterior Bilateral Throughout] Blood Pressure 119/65 116/58 O2 Sat by Pulse 100 100 Oximetry 07/23/19 07/23/19 07/23/19 03:40 03:50 03:59 Temperature Pulse Rate 97 H 95 H 98 H Pulse Rate [ Anterior Bilateral Throughout] Pulse Rate [ From Monitor] Respiratory 24 24 Rate Respiratory Rate [Anterior Bilateral Throughout] Blood Pressure 116/58 116/58 116/58 O2 Sat by Pulse 100 100 Oximetry 07/23/19 07/23/19 07/23/19 04:00 04:10 04:20 Temperature Pulse Rate 97 H 95 H 94 H Pulse Rate [ Anterior Bilateral Throughout] Pulse Rate [ 102 H From Monitor] Respiratory 24 24 24 Rate Respiratory Rate [Anterior Bilateral Throughout] Blood Pressure 116/58 119/65 119/65 O2 Sat by Pulse 100 100 100 Oximetry 07/23/19 07/23/19 07/23/19 04:30 04:40 04:50 Temperature Pulse Rate 90 93 H 92 H Pulse Rate [ Anterior Bilateral Throughout] Pulse Rate [ From Monitor] Respiratory 24 24 24 Rate Respiratory Rate [Anterior Bilateral Throughout] Blood Pressure 118/66 118/66 118/66 O2 Sat by Pulse 100 100 100 Oximetry 07/23/19 07/23/19 07/23/19 05:00 05:10 05:20 Temperature Pulse Rate 91 H 91 H 91 H Pulse Rate [ Anterior Bilateral Throughout] Pulse Rate [ From Monitor] Respiratory 24 24 24 Rate Respiratory Rate [Anterior Bilateral Throughout] Blood Pressure 125/67 125/67 125/67 O2 Sat by Pulse 100 100 100 Oximetry 07/23/19 07/23/19 07/23/19 05:30 05:40 05:50 Temperature Pulse Rate 92 H 102 H 110 H Pulse Rate [ Anterior Bilateral Throughout] Pulse Rate [ From Monitor] Respiratory 24 18 15 Rate Respiratory Rate [Anterior Bilateral Throughout] Blood Pressure 121/66 121/66 121/66 O2 Sat by Pulse 100 98 97 Oximetry 07/23/19 07/23/19 07/23/19 06:00 06:10 06:20 Temperature Pulse Rate 111 H 100 H 106 H Pulse Rate [ Anterior Bilateral Throughout] Pulse Rate [ From Monitor] Respiratory 23 21 21 Rate Respiratory Rate [Anterior Bilateral Throughout] Blood Pressure 136/64 121/66 121/66 O2 Sat by Pulse 99 100 98 Oximetry 07/23/19 07/23/19 07/23/19 06:30 06:40 06:50 Temperature Pulse Rate 110 H 116 H 114 H Pulse Rate [ Anterior Bilateral Throughout] Pulse Rate [ From Monitor] Respiratory 20 22 28 H Rate Respiratory Rate [Anterior Bilateral Throughout] Blood Pressure 146/71 146/71 146/71 O2 Sat by Pulse 98 98 98 Oximetry 07/23/19 07/23/19 07/23/19 07:00 07:10 07:20 Temperature Pulse Rate 102 H 103 H 103 H Pulse Rate [ Anterior Bilateral Throughout] Pulse Rate [ From Monitor] Respiratory 24 24 24 Rate Respiratory Rate [Anterior Bilateral Throughout] Blood Pressure 126/62 126/62 126/62 O2 Sat by Pulse 99 99 99 Oximetry 07/23/19 07/23/19 07/23/19 07:30 07:40 07:50 Temperature Pulse Rate 101 H 105 H 100 H Pulse Rate [ Anterior Bilateral Throughout] Pulse Rate [ From Monitor] Respiratory 24 24 24 Rate Respiratory Rate [Anterior Bilateral Throughout] Blood Pressure 122/60 146/71 146/71 O2 Sat by Pulse 99 99 99 Oximetry 07/23/19 07/23/19 07/23/19 08:00 08:10 08:20 Temperature 101.2 F H Pulse Rate 102 H 98 H 103 H Pulse Rate [ Anterior Bilateral Throughout] Pulse Rate [ 102 H From Monitor] Respiratory 24 24 24 Rate Respiratory Rate [Anterior Bilateral Throughout] Blood Pressure 120/58 120/58 120/58 O2 Sat by Pulse 99 99 99 Oximetry 07/23/19 07/23/19 07/23/19 08:30 08:45 08:49 Temperature Pulse Rate 103 H 109 H Pulse Rate [ 113 H Anterior Bilateral Throughout] Pulse Rate [ From Monitor] Respiratory 24 Rate Respiratory 25 H Rate [Anterior Bilateral Throughout] Blood Pressure 127/61 127/61 O2 Sat by Pulse 99 99 Oximetry 07/23/19 09:46 Temperature Pulse Rate 123 H Pulse Rate [ Anterior Bilateral Throughout] Pulse Rate [ From Monitor] Respiratory Rate Respiratory Rate [Anterior Bilateral Throughout] Blood Pressure 136/71 O2 Sat by Pulse Oximetry Constitutional: comatose Eyes: non-icteric ENT: other (orally intubated and sedated.) Neck: supple Effort: normal Ascultation: Bilateral: diminished breath sounds Percussion: Bilateral: not dull Cardiovascular: regular rate and rhythm Gastrointestinal: normoactive bowel sounds, soft, non-tender Integumentary: normal Neurologic: unable to assess CBC and BMP: 07/23/19 05:48 07/23/19 05:48 ABG, PT/INR, D-dimer: ABG ABG pH 7.435 pH Units (7.350-7.450) 07/23/19 04:00 ABG pCO2 44.0 mm Hg 07/23/19 04:00 ABG pO2 126.1 mm Hg (80.0-90.0) H 07/23/19 04:00 ABG O2 Saturation 98.5 % (95.0-99.0) 07/23/19 04:00 Abnormal lab findings: Abnormal Labs 07/17/19 07/17/19 07/17/19 15:10 15:51 15:51 WBC 20.6 H RBC 5.66 H Hgb MCV 67 L MCH 20 L MCHC 29 L RDW 18.3 H Seg Neuts % (Manual) 84.0 H Lymphocytes % (Manual) 10.0 L Monocytes % (Manual) Eosinophils % (Manual) Seg Neutrophils # Man 17.3 H Lymphocytes # (Manual) Monocytes # (Manual) Eosinophils # (Manual) Basophils # (Manual) 0.2 H APTT 20.7 L ABG pH 7.147 L* ABG pO2 174.7 H ABG HCO3 ABG Base Excess -4.2 L ABG Hemoglobin 11.0 L Oxyhemoglobin 94.2 L Sodium Creatinine Glucose POC Glucose Lactic Acid Calcium AST ALT Alkaline Phosphatase Albumin Urine WBC (Auto) Salicylates Acetaminophen 07/17/19 07/17/19 07/17/19 15:51 15:51 16:30 WBC RBC Hgb MCV MCH MCHC RDW Seg Neuts % (Manual) Lymphocytes % (Manual) Monocytes % (Manual) Eosinophils % (Manual) Seg Neutrophils # Man Lymphocytes # (Manual) Monocytes # (Manual) Eosinophils # (Manual) Basophils # (Manual) APTT ABG pH ABG pO2 ABG HCO3 ABG Base Excess ABG Hemoglobin Oxyhemoglobin Sodium Creatinine Glucose 302 H POC Glucose Lactic Acid 4.70 H* Calcium 8.1 L AST 104 H ALT 57 H Alkaline Phosphatase 158 H Albumin 3.8 L Urine WBC (Auto) 12.0 H Salicylates Acetaminophen 07/17/19 07/17/19 07/17/19 18:20 18:20 18:20 WBC RBC Hgb MCV MCH MCHC RDW Seg Neuts % (Manual) Lymphocytes % (Manual) Monocytes % (Manual) Eosinophils % (Manual) Seg Neutrophils # Man Lymphocytes # (Manual) Monocytes # (Manual) Eosinophils # (Manual) Basophils # (Manual) APTT ABG pH ABG pO2 ABG HCO3 ABG Base Excess ABG Hemoglobin Oxyhemoglobin Sodium Creatinine Glucose POC Glucose Lactic Acid 2.40 H* Calcium AST ALT Alkaline Phosphatase Albumin Urine WBC (Auto) Salicylates < 0.3 L Acetaminophen < 5.0 L 07/17/19 07/17/19 07/17/19 19:16 22:15 22:26 WBC RBC Hgb MCV MCH MCHC RDW Seg Neuts % (Manual) Lymphocytes % (Manual) Monocytes % (Manual) Eosinophils % (Manual) Seg Neutrophils # Man Lymphocytes # (Manual) Monocytes # (Manual) Eosinophils # (Manual) Basophils # (Manual) APTT ABG pH ABG pO2 104.1 H ABG HCO3 26.7 H ABG Base Excess ABG Hemoglobin 11.1 L Oxyhemoglobin Sodium Creatinine Glucose POC Glucose 136 H Lactic Acid 2.40 H* Calcium AST ALT Alkaline Phosphatase Albumin Urine WBC (Auto) Salicylates Acetaminophen 07/18/19 07/18/19 07/18/19 03:35 03:35 04:28 WBC 21.9 H RBC 5.68 H Hgb MCV 66 L MCH 19 L MCHC RDW 17.7 H Seg Neuts % (Manual) 96.0 H Lymphocytes % (Manual) 4.0 L Monocytes % (Manual) Eosinophils % (Manual) Seg Neutrophils # Man 21.0 H Lymphocytes # (Manual) 0.9 L Monocytes # (Manual) Eosinophils # (Manual) Basophils # (Manual) APTT ABG pH ABG pO2 91.3 H ABG HCO3 29.3 H ABG Base Excess 3.1 H ABG Hemoglobin 10.9 L Oxyhemoglobin 94.9 L Sodium Creatinine Glucose 157 H POC Glucose Lactic Acid Calcium 7.8 L AST 59 H ALT Alkaline Phosphatase Albumin 3.5 L Urine WBC (Auto) Salicylates Acetaminophen 07/18/19 07/18/19 07/19/19 12:04 18:09 00:04 WBC RBC Hgb MCV MCH MCHC RDW Seg Neuts % (Manual) Lymphocytes % (Manual) Monocytes % (Manual) Eosinophils % (Manual) Seg Neutrophils # Man Lymphocytes # (Manual) Monocytes # (Manual) Eosinophils # (Manual) Basophils # (Manual) APTT ABG pH ABG pO2 ABG HCO3 ABG Base Excess ABG Hemoglobin Oxyhemoglobin Sodium Creatinine Glucose POC Glucose 171 H 136 H 120 H Lactic Acid Calcium AST ALT Alkaline Phosphatase Albumin Urine WBC (Auto) Salicylates Acetaminophen 07/19/19 07/19/19 07/19/19 05:00 08:30 12:23 WBC RBC Hgb MCV MCH MCHC RDW Seg Neuts % (Manual) Lymphocytes % (Manual) Monocytes % (Manual) Eosinophils % (Manual) Seg Neutrophils # Man Lymphocytes # (Manual) Monocytes # (Manual) Eosinophils # (Manual) Basophils # (Manual) APTT ABG pH 7.451 H ABG pO2 75.6 L ABG HCO3 28.1 H ABG Base Excess 3.8 H ABG Hemoglobin 11.3 L Oxyhemoglobin 94.6 L Sodium Creatinine Glucose POC Glucose 118 H 131 H Lactic Acid Calcium AST ALT Alkaline Phosphatase Albumin Urine WBC (Auto) Salicylates Acetaminophen 07/20/19 07/20/19 07/20/19 00:21 04:10 18:07 WBC RBC Hgb MCV MCH MCHC RDW Seg Neuts % (Manual) Lymphocytes % (Manual) Monocytes % (Manual) Eosinophils % (Manual) Seg Neutrophils # Man Lymphocytes # (Manual) Monocytes # (Manual) Eosinophils # (Manual) Basophils # (Manual) APTT ABG pH ABG pO2 94.4 H ABG HCO3 28.9 H ABG Base Excess ABG Hemoglobin Oxyhemoglobin 94.8 L Sodium Creatinine Glucose POC Glucose 114 H 111 H Lactic Acid Calcium AST ALT Alkaline Phosphatase Albumin Urine WBC (Auto) Salicylates Acetaminophen 07/21/19 07/21/19 07/21/19 00:42 03:40 05:56 WBC RBC Hgb MCV MCH MCHC RDW Seg Neuts % (Manual) Lymphocytes % (Manual) Monocytes % (Manual) Eosinophils % (Manual) Seg Neutrophils # Man Lymphocytes # (Manual) Monocytes # (Manual) Eosinophils # (Manual) Basophils # (Manual) APTT ABG pH ABG pO2 ABG HCO3 29.0 H ABG Base Excess 3.6 H ABG Hemoglobin 9.9 L Oxyhemoglobin 94.7 L Sodium Creatinine Glucose POC Glucose 109 H 125 H Lactic Acid Calcium AST ALT Alkaline Phosphatase Albumin Urine WBC (Auto) Salicylates Acetaminophen 07/21/19 07/22/19 07/22/19 23:37 05:10 08:58 WBC 17.0 H RBC Hgb 9.3 L MCV 64 L MCH 19 L MCHC RDW 17.8 H Seg Neuts % (Manual) Lymphocytes % (Manual) Monocytes % (Manual) Eosinophils % (Manual) Seg Neutrophils # Man Lymphocytes # (Manual) Monocytes # (Manual) Eosinophils # (Manual) Basophils # (Manual) APTT ABG pH ABG pO2 120.1 H ABG HCO3 30.2 H ABG Base Excess 5.0 H ABG Hemoglobin 8.3 L Oxyhemoglobin Sodium Creatinine Glucose POC Glucose 120 H Lactic Acid Calcium AST ALT Alkaline Phosphatase Albumin Urine WBC (Auto) Salicylates Acetaminophen 07/22/19 07/22/19 07/23/19 08:58 12:11 04:00 WBC RBC Hgb MCV MCH MCHC RDW Seg Neuts % (Manual) Lymphocytes % (Manual) Monocytes % (Manual) Eosinophils % (Manual) Seg Neutrophils # Man Lymphocytes # (Manual) Monocytes # (Manual) Eosinophils # (Manual) Basophils # (Manual) APTT ABG pH ABG pO2 126.1 H ABG HCO3 28.9 H ABG Base Excess 4.2 H ABG Hemoglobin 7.8 L Oxyhemoglobin Sodium Creatinine 0.5 L Glucose 123 H POC Glucose 112 H Lactic Acid Calcium AST 66 H ALT Alkaline Phosphatase Albumin 3.4 L Urine WBC (Auto) Salicylates Acetaminophen 07/23/19 07/23/19 05:48 05:48 WBC 16.2 H RBC Hgb 9.0 L MCV 65 L MCH 19 L MCHC 29 L RDW 18.0 H Seg Neuts % (Manual) Lymphocytes % (Manual) Monocytes % (Manual) 9.0 H Eosinophils % (Manual) 6.0 H Seg Neutrophils # Man 11.3 H Lymphocytes # (Manual) Monocytes # (Manual) 1.5 H Eosinophils # (Manual) 1.0 H Basophils # (Manual) APTT ABG pH ABG pO2 ABG HCO3 ABG Base Excess ABG Hemoglobin Oxyhemoglobin Sodium 146 H Creatinine 0.5 L Glucose POC Glucose Lactic Acid Calcium AST 68 H ALT 57 H Alkaline Phosphatase Albumin 3.3 L Urine WBC (Auto) Salicylates Acetaminophen
[2019-07-23] MEDS: levETIRAcetam 1,500 MG in DEXTROSE 5% IN WATER 100 ML IV SCH ×2 (10:30→22:28)
[2019-07-23] MEDS: VALSARTAN 40 MG TAB PO SCH ×2 (10:31→22:30)
[2019-07-23] MEDS ORDERED: MANNITOL IV STA (12:45)
--- NOTE | 2019-07-23 12:53 | Cat Scan Report ---
CT head/brain wo con INDICATION / CLINICAL INFORMATION: 29 years Female; downward gaze, decerebrate post, herniation. TECHNIQUE: Routine CT head without contrast. All CT scans at this location are performed using CT dos e reduction for ALARA by means of automated exposure control. COMPARISON: The study is compared to the previous CT of 07/19/2019. FINDINGS: BRAIN / INTRACRANIAL CONTENTS: There is increasing mass effect upon the earlier CT with further effac ement of the cerebral sulci along the cerebral convexities. Additionally, there is loss of the contreras-w kari matter differentiation and the findings would be compatible with worsening diffuse of cerebral e best. The motion degrades image quality. However, there is no clear evidence of acute intracranial he morrhage. The ventricular system does not appear to significant changed in size or configuration. The re is increase effacement of the basal cisterns. ORBITS: No significant abnormality of visualized orbits. SINUSES / MASTOIDS: There is worsening opacification of the sphenoid and ethmoid sinuses in this intu bated patient. Milder thickening is noted within the maxillary sinuses. There is opacification of the mastoid air cells bilaterally which is also increased. CRANIOCERVICAL JUNCTION: No significant abnormality. ADDITIONAL FINDINGS: None. IMPRESSION: 1. The motion degrades image quality. However, the findings are compatible with worsening of diffuse cerebral edema and mass effect from 07/19/2019 as detailed above. Signer Name: Jesus Alberto Caballero MD Signed: 07/23/2019 12:48 PM Workstation Name: [id number]
--- NOTE | 2019-07-23 13:16 | Progress Note ---
Assessment and Plan Cultures: 07/17/2019 blood culture: No growth 07/17/2019 urine culture: No growth 07/17/2019 light growth of respiratory kate 07/21/2019 blood culture: 05/25 CoNS A/P: 29/F with morbid obesity admitted with: #Sepsis: Persistent fever and leukocytosis, probably from bilateral pneumonia. Central fevers are also possible given her concern for anoxic brain injury. Agree with ruling out influenza. Meningitis / [employer] process cannot be ruled out, patient is over the weight limit for MRI brain, given her morbid obesity, will need LP under fluoroscopic guidance when able to. Meanwhile, will treat empiri anny anyways with abx. #Acute hypoxic respiratory failure: On the vent. #Acute encephalopathy: anoxic brain injury with worsening cerebral edema. Neurology following #Morbid obesity: Severe. #CoNS bacteremia: likely contaminant Recs: 05/25 blood culture with CoNS - likely contaminant Continue IV cefepime dose to 2 g every 8 hours and IV Flagyl, Day 2 Agree with empiric Tamiflu until influenza is ruled out high likelihood of central fever given worsening cerebral edema Overall prognosis seems poor. Paulina Le MD, FACP [facility] C: [phone] O: [phone] F: [phone] Subjective Date of service: 07/23/19 Principal diagnosis: Anoxic brain injury Interval history: Fever +. Remains intubated, unresponsive. CT head showed worsening diffuse cerebral edema. Objective - Exam Narrative Exam: Physical Exam: Constitutional: unresponsive, intubated. morbid obesity Head, Ears, Nose: Normocephalic, atraumatic. External ears, nose normal Eyes: Conjunctivae/corneas clear. No icterus. No ptosis. Neck: intubated. Oral: intubated Cardiovascular: S1, S2 normal. Respiratory: Good air entry, clear to auscultation bilaterally GI: Soft, non-tender; bowel sounds normal. No peritoneal signs Musculoskeletal: No pedal edema, no cyanosis. Skin: No rash or abscess Hem/Lymphatic: No palpable cervical or supraclavicular nodes. No lymphangitis Psych: no agitation Neurological: unresponsive, intubated, on vent - Constitutional Vitals: Vital Signs Temp Pulse Resp BP Pulse Ox 101.2 F H 102 H 24 108/66 98 07/23/19 08:00 07/23/19 12:46 07/23/19 11:00 07/23/19 12:46 07/23/19 12:46 Temperature -Last 24 Hours Temperature 101.2 F Temperature 99.4 F Temperature 100.7 F Temperature 100.5 F Temperature 100.6 F - Labs CBC & Chem 7: 07/23/19 05:48 07/23/19 05:48 Labs: Abnormal lab results 07/23/19 07/23/19 07/23/19 Range/Units 04:00 05:48 05:48 WBC 16.2 H (4.5-11.0) K/mm3 Hgb 9.0 L (10.1-14.3) gm/dl MCV 65 L (79-97) fl MCH 19 L (28-32) pg MCHC 29 L (30-34) % RDW 18.0 H (13.2-15.2) % Monocytes % (Manual) 9.0 H (0.0-7.3) % Eosinophils % (Manual) 6.0 H (0.0-4.3) % Seg Neutrophils # Man 11.3 H (1.8-7.7) K/mm3 Monocytes # (Manual) 1.5 H (0.0-0.8) K/mm3 Eosinophils # (Manual) 1.0 H (0.0-0.4) K/mm3 ABG pO2 126.1 H (80.0-90.0) mm Hg ABG HCO3 28.9 H (20.0-26.0) mmol/L ABG Base Excess 4.2 H (-2.0-3.0) mmol/L ABG Hemoglobin 7.8 L (12.0-16.0) gm/dl Sodium 146 H (137-145) mmol/L Creatinine 0.5 L (0.7-1.2) mg/dL AST 68 H (5-40) units/L ALT 57 H (7-56) units/L Albumin 3.3 L (3.9-5) g/dL - Imaging and cardiology CT Scan - head: report reviewed, image reviewed (diffuse cerebral edema.)
--- NOTE | 2019-07-23 14:59 | Electroencephalogram Report ---
Electroencephalogram EEG Date of exam: 07/23/19 History: 29-year-old female hypoxic brain injury status post cardiac arrest status post ACLS prolonged downtime exam is very poor today patient was having right sided clinical seizures she is on valproic acid Keppra and Ativan during this EEG bedside 20 minutes Impression: This EEG is concerning for cerebral silence however in the setting of multiple medications used today a repeat EEG is recommended No electrographic seizures Description: This EEG was acquired with electrodes placed according to the International 10- 20 electrode placement system. Throughout this EEG no sustained cerebral rhythmic activity sensitivity was also increased to 2 V and the tracing remained flat and featureless, EKG artifact was seen throughout this EEG, stimulation tactile and verbal along with eye opening and eye closure produced no sustained cerebral activity or reactivity No electrographic seizures were appreciated Interpretation: This is an abnormal coma EEG due to problem #1 silence of electrocerebral activity
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
[2019-07-23] MEDS: ENOXAPARIN 40 MG/0.4 ML INJ SUB-Q SCH (22:29)
[2019-07-23] MEDS: MANNITOL IV SCH (22:31)
[2019-07-24] MEDS: INSULIN LISPRO 100 UNIT/ML SUB-Q SCH ×4 (02:46→17:51)
[2019-07-24] MEDS: IPRATROPIUM/ALBUTEROL SULFATE 3 ML AMPUL.NEB IH SCH ×4 (02:49→19:55)
[2019-07-24 04:42] LABS: ABG Base Excess 3.9 mmol/L (-2.0-3.0); ABG HCO3 28.2 mmol/L (20.0-26.0); ABG Methemoglobin 0.5 % (0.0-1.5); ABG Oxygen Saturation 97.5 % (95.0-99.0); ABG PCO2 41.2 mm Hg; ABG PH 7.453 pH Units (7.350-7.450); ABG PO2 93.2 mm Hg (80.0-90.0)
[2019-07-24 04:43] LABS: Hematocrit 28.6 % (30.3-42.9); Hemoglobin 8.6 gm/dl (10.1-14.3); Mean Corpuscular HGB Conc 30 % (30-34); Platelet Count 238 K/mm3 (140-440); Red Blood Count 4.42 M/mm3 (3.65-5.03); Red Cell Distribution Width 17.8 % (13.2-15.2)
[2019-07-24 04:46] LABS: Mean Corpuscular Volume 65 fl (79-97)
[2019-07-24 05:06] LABS: Alanine Aminotransferase 56 units/L (7-56); Albumin 3.2 g/dL (3.9-5); BUN/Creatinine Ratio 25; Blood Urea Nitrogen 15 mg/dL (7-17); Hemolysis Index 0
[2019-07-24] MEDS: ACETAMINOPHEN 325 MG TAB PO PRN ×2 (05:45→09:38)
[2019-07-24] MEDS: MANNITOL IV SCH ×3 (05:46→21:37)
[2019-07-24] MEDS: metroNIDAZOLE/NS 500 MG/100 ML 500 MG/100 ML BAG IV SCH ×3 (05:47→21:37)
[2019-07-24] MEDS: CEFEPIME/NS 2 GM/100 ML 2 GM/100 ML BAG IV SCH ×3 (06:00→21:37)
[2019-07-24] MEDS: BUDESONIDE 0.5 MG/2 ML NEBU IH SCH ×2 (09:17→19:55)
[2019-07-24] MEDS: levETIRAcetam 1,500 MG in DEXTROSE 5% IN WATER 100 ML IV SCH ×2 (09:34→23:27)
--- NOTE | 2019-07-24 09:36 | Progress Note ---
Assessment and Plan Cultures: 07/17/2019 blood culture: No growth 07/17/2019 urine culture: No growth 07/17/2019 light growth of respiratory kate 07/21/2019 blood culture: 05/25 CoNS Influenza PCR: negative A/P: 29/F with morbid obesity admitted with: #Sepsis: Persistent fever and leukocytosis, probably from bilateral pneumonia. Central fevers are also possible given her concern for anoxic brain injury. Meningitis / [employer] process cannot be ruled out but seems less likely, patient is over the weight limit for MRI brain, given her morbid obesity, will need LP under fluoroscopic guidance when able to. Meanwhile, will treat empirically anyways with abx. #Acute hypoxic respiratory failure secondary to pneumonia: On the vent. #Acute encephalopathy: anoxic brain injury with worsening cerebral edema. Neurology following #Morbid obesity: Severe. #CoNS bacteremia: likely contaminant. Recs: Influenza PCR is negative, Tamiflu discontinued WBC improving. Continue IV cefepime dose to 2 g every 8 hours and IV Flagyl, Day 3 of 5-7 days and then will stop. High likelihood of central fever given worsening cerebral edema from anoxic brain injury Overall prognosis seems poor Paulina Le MD, FACP [facility] ([facility] C: [phone] O: [phone] F: [phone] Subjective Date of service: 07/24/19 Principal diagnosis: Anoxic brain injury Interval history: Persistent fevers. Remains unresponsive on the vent. Objective - Exam Narrative Exam: Physical Exam: Constitutional: unresponsive, intubated. morbid obesity Head, Ears, Nose: Normocephalic, atraumatic. External ears, nose normal Eyes: Conjunctivae/corneas clear. No icterus. No ptosis. Neck: intubated Oral: intubated Cardiovascular: S1, S2 normal. Respiratory: Good air entry, clear to auscultation bilaterally GI: Soft, non-tender; bowel sounds normal. No peritoneal signs Musculoskeletal: No pedal edema, no cyanosis. Skin: No rash or abscess Hem/Lymphatic: No palpable cervical or supraclavicular nodes. No lymphangitis Psych: no agitation Neurological: unresponsive, intubated, on vent - Constitutional Vitals: Vital Signs Temp Pulse Resp BP Pulse Ox 101.6 F H 105 H 24 135/77 98 07/24/19 08:00 07/24/19 09:08 07/24/19 08:00 07/24/19 09:08 07/24/19 09:08 Temperature -Last 24 Hours Temperature 101.6 F Temperature 101.1 F Temperature 102.2 F Temperature 100.7 F Temperature 100.8 F - Labs CBC & Chem 7: 07/24/19 04:19 07/24/19 04:19 Labs: Abnormal lab results 07/23/19 07/24/19 07/24/19 Range/Units 23:36 04:19 04:19 WBC 13.1 H (4.5-11.0) K/mm3 Hgb 8.6 L (10.1-14.3) gm/dl Hct 28.6 L (30.3-42.9) % MCV 65 L (79-97) fl MCH 19 L (28-32) pg RDW 17.8 H (13.2-15.2) % ABG pH (7.350-7.450) pH Units ABG pO2 (80.0-90.0) mm Hg ABG HCO3 (20.0-26.0) mmol/L ABG Base Excess (-2.0-3.0) mmol/L ABG Hemoglobin (12.0-16.0) gm/dl Oxyhemoglobin (95.0-99.0) % Creatinine 0.6 L (0.7-1.2) mg/dL Glucose 108 H (65-100) mg/dL POC Glucose 108 H (70-105) AST 51 H (5-40) units/L Albumin 3.2 L (3.9-5) g/dL 07/24/19 Range/Units 04:20 WBC (4.5-11.0) K/mm3 Hgb (10.1-14.3) gm/dl Hct (30.3-42.9) % MCV (79-97) fl MCH (28-32) pg RDW (13.2-15.2) % ABG pH 7.453 H (7.350-7.450) pH Units ABG pO2 93.2 H (80.0-90.0) mm Hg ABG HCO3 28.2 H (20.0-26.0) mmol/L ABG Base Excess 3.9 H (-2.0-3.0) mmol/L ABG Hemoglobin 11.7 L (12.0-16.0) gm/dl Oxyhemoglobin 94.9 L (95.0-99.0) % Creatinine (0.7-1.2) mg/dL Glucose (65-100) mg/dL POC Glucose (70-105) AST (5-40) units/L Albumin (3.9-5) g/dL
[2019-07-24] MEDS: FAMOTIDINE 20 MG TAB PO SCH ×2 (09:37→21:38)
[2019-07-24] MEDS: NICOTINE 21 MG/24 HR PATCH TD SCH (09:38)
[2019-07-24] MEDS: SCOPOLAMINE TRANSDERMAL PATCH 72 HR TD SCH (10:00)
[2019-07-24] MEDS: VALSARTAN 40 MG TAB PO SCH ×2 (10:05→21:38)
--- NOTE | 2019-07-24 10:20 | Progress Note ---
Assessment and Plan hypoxic brain injury severe, today is day 7, found down , prolong down time, cerebral edema worsening, seizures, myoclonus, and extensor posturing, unstable EEG was neg for status yesterday mannitol keppra max vpa loaded and now 500 bid propofol osmo reassuring mannitol 35 q8, osmo q8 if osmo > 310, then back off mannitol to 25 q8 if still > 310 then do 15 q8 mann[address] until repeat CT mon/mon follow for sz myoclonus will cont same treatment today, pt is moving head semi purposeful away from nox stim start propofol wean off joelle give till this weekend to see if pt turns the corner toward recovery, that will be 10-11 days since insult family will likely do trach/peg, understandable, young pt call sister only , number updated case discussed w her, 45 min spent on prognosis and treatment options poor prog. Subjective Date of service: 07/24/19 Principal diagnosis: Anoxic brain injury Interval history: no further gtc sz on prop, keppra and vpa mannitol on board seems more responsive slightly moving head family, real sister is here, she will update her number on the record, upto now her 'cousin who is a sister' was being called family want everything' done, will cont fevers osmo 320 now 296 intubated not breathing over vent pupils reactive downward gaze prior to stim, then eye leveled to prim gaze no extra movements no w/d to pain but still ext posturing w nox stim UE b/l tone down to all limbs no dolls neck supple Objective - Exam Narrative Exam: see above\ corneals intact, and pt seems more reactive to external stim, by moving head no gag no cough - Vital Sign Vital Signs - 12hr 07/23/19 07/24/19 07/24/19 23:00 00:00 00:34 Temperature Pulse Rate 101 H 102 H 101 H Pulse Rate [ Anterior Bilateral Throughout] Pulse Rate [ 101 H From Monitor] Respiratory 24 24 Rate Respiratory Rate [Anterior Bilateral Throughout] Blood Pressure 120/70 114/66 115/69 O2 Sat by Pulse 98 98 98 Oximetry 07/24/19 07/24/19 07/24/19 01:00 02:00 03:00 Temperature Pulse Rate 95 H 100 H 101 H Pulse Rate [ Anterior Bilateral Throughout] Pulse Rate [ From Monitor] Respiratory 24 24 24 Rate Respiratory Rate [Anterior Bilateral Throughout] Blood Pressure 117/64 121/69 121/70 O2 Sat by Pulse 98 99 97 Oximetry 07/24/19 07/24/19 07/24/19 03:05 04:00 04:30 Temperature 101.1 F H Pulse Rate 102 H 98 H Pulse Rate [ 101 H Anterior Bilateral Throughout] Pulse Rate [ 101 H From Monitor] Respiratory 27 H Rate Respiratory 24 Rate [Anterior Bilateral Throughout] Blood Pressure 124/70 114/65 O2 Sat by Pulse 98 98 Oximetry 07/24/19 07/24/19 07/24/19 05:00 06:00 07:00 Temperature Pulse Rate 98 H 100 H 94 H Pulse Rate [ Anterior Bilateral Throughout] Pulse Rate [ From Monitor] Respiratory 24 18 24 Rate Respiratory Rate [Anterior Bilateral Throughout] Blood Pressure 116/70 128/77 136/85 O2 Sat by Pulse 99 98 99 Oximetry 07/24/19 07/24/19 07/24/19 08:00 09:08 09:35 Temperature 101.6 F H Pulse Rate 96 H 105 H 108 H Pulse Rate [ Anterior Bilateral Throughout] Pulse Rate [ 96 H From Monitor] Respiratory 24 Rate Respiratory Rate [Anterior Bilateral Throughout] Blood Pressure 136/81 135/77 128/75 O2 Sat by Pulse 99 98 Oximetry 07/24/19 07/24/19 09:55 10:05 Temperature Pulse Rate 98 H Pulse Rate [ 107 H Anterior Bilateral Throughout] Pulse Rate [ From Monitor] Respiratory Rate Respiratory 24 Rate [Anterior Bilateral Throughout] Blood Pressure 134/79 O2 Sat by Pulse Oximetry - Laboratory Findings CBC and BMP: 07/24/19 04:19 07/24/19 04:19 Abnormal Lab Findings: Abnormal Labs 07/17/19 07/17/19 07/17/19 15:10 15:51 15:51 WBC 20.6 H RBC 5.66 H Hgb Hct MCV 67 L MCH 20 L MCHC 29 L RDW 18.3 H Seg Neuts % (Manual) 84.0 H Lymphocytes % (Manual) 10.0 L Monocytes % (Manual) Eosinophils % (Manual) Seg Neutrophils # Man 17.3 H Lymphocytes # (Manual) Monocytes # (Manual) Eosinophils # (Manual) Basophils # (Manual) 0.2 H APTT 20.7 L ABG pH 7.147 L* ABG pO2 174.7 H ABG HCO3 ABG Base Excess -4.2 L ABG Hemoglobin 11.0 L Oxyhemoglobin 94.2 L Sodium Creatinine Glucose POC Glucose Lactic Acid Calcium AST ALT Alkaline Phosphatase Albumin Urine WBC (Auto) Salicylates Acetaminophen 07/17/19 07/17/19 07/17/19 15:51 15:51 16:30 WBC RBC Hgb Hct MCV MCH MCHC RDW Seg Neuts % (Manual) Lymphocytes % (Manual) Monocytes % (Manual) Eosinophils % (Manual) Seg Neutrophils # Man Lymphocytes # (Manual) Monocytes # (Manual) Eosinophils # (Manual) Basophils # (Manual) APTT ABG pH ABG pO2 ABG HCO3 ABG Base Excess ABG Hemoglobin Oxyhemoglobin Sodium Creatinine Glucose 302 H POC Glucose Lactic Acid 4.70 H* Calcium 8.1 L AST 104 H ALT 57 H Alkaline Phosphatase 158 H Albumin 3.8 L Urine WBC (Auto) 12.0 H Salicylates Acetaminophen 07/17/19 07/17/19 07/17/19 18:20 18:20 18:20 WBC RBC Hgb Hct MCV MCH MCHC RDW Seg Neuts % (Manual) Lymphocytes % (Manual) Monocytes % (Manual) Eosinophils % (Manual) Seg Neutrophils # Man Lymphocytes # (Manual) Monocytes # (Manual) Eosinophils # (Manual) Basophils # (Manual) APTT ABG pH ABG pO2 ABG HCO3 ABG Base Excess ABG Hemoglobin Oxyhemoglobin Sodium Creatinine Glucose POC Glucose Lactic Acid 2.40 H* Calcium AST ALT Alkaline Phosphatase Albumin Urine WBC (Auto) Salicylates < 0.3 L Acetaminophen < 5.0 L 07/17/19 07/17/19 07/17/19 19:16 22:15 22:26 WBC RBC Hgb Hct MCV MCH MCHC RDW Seg Neuts % (Manual) Lymphocytes % (Manual) Monocytes % (Manual) Eosinophils % (Manual) Seg Neutrophils # Man Lymphocytes # (Manual) Monocytes # (Manual) Eosinophils # (Manual) Basophils # (Manual) APTT ABG pH ABG pO2 104.1 H ABG HCO3 26.7 H ABG Base Excess ABG Hemoglobin 11.1 L Oxyhemoglobin Sodium Creatinine Glucose POC Glucose 136 H Lactic Acid 2.40 H* Calcium AST ALT Alkaline Phosphatase Albumin Urine WBC (Auto) Salicylates Acetaminophen 07/18/19 07/18/19 07/18/19 03:35 03:35 04:28 WBC 21.9 H RBC 5.68 H Hgb Hct MCV 66 L MCH 19 L MCHC RDW 17.7 H Seg Neuts % (Manual) 96.0 H Lymphocytes % (Manual) 4.0 L Monocytes % (Manual) Eosinophils % (Manual) Seg Neutrophils # Man 21.0 H Lymphocytes # (Manual) 0.9 L Monocytes # (Manual) Eosinophils # (Manual) Basophils # (Manual) APTT ABG pH ABG pO2 91.3 H ABG HCO3 29.3 H ABG Base Excess 3.1 H ABG Hemoglobin 10.9 L Oxyhemoglobin 94.9 L Sodium Creatinine Glucose 157 H POC Glucose Lactic Acid Calcium 7.8 L AST 59 H ALT Alkaline Phosphatase Albumin 3.5 L Urine WBC (Auto) Salicylates Acetaminophen 07/18/19 07/18/19 07/19/19 12:04 18:09 00:04 WBC RBC Hgb Hct MCV MCH MCHC RDW Seg Neuts % (Manual) Lymphocytes % (Manual) Monocytes % (Manual) Eosinophils % (Manual) Seg Neutrophils # Man Lymphocytes # (Manual) Monocytes # (Manual) Eosinophils # (Manual) Basophils # (Manual) APTT ABG pH ABG pO2 ABG HCO3 ABG Base Excess ABG Hemoglobin Oxyhemoglobin Sodium Creatinine Glucose POC Glucose 171 H 136 H 120 H Lactic Acid Calcium AST ALT Alkaline Phosphatase Albumin Urine WBC (Auto) Salicylates Acetaminophen 07/19/19 07/19/19 07/19/19 05:00 08:30 12:23 WBC RBC Hgb Hct MCV MCH MCHC RDW Seg Neuts % (Manual) Lymphocytes % (Manual) Monocytes % (Manual) Eosinophils % (Manual) Seg Neutrophils # Man Lymphocytes # (Manual) Monocytes # (Manual) Eosinophils # (Manual) Basophils # (Manual) APTT ABG pH 7.451 H ABG pO2 75.6 L ABG HCO3 28.1 H ABG Base Excess 3.8 H ABG Hemoglobin 11.3 L Oxyhemoglobin 94.6 L Sodium Creatinine Glucose POC Glucose 118 H 131 H Lactic Acid Calcium AST ALT Alkaline Phosphatase Albumin Urine WBC (Auto) Salicylates Acetaminophen 07/20/19 07/20/19 07/20/19 00:21 04:10 18:07 WBC RBC Hgb Hct MCV MCH MCHC RDW Seg Neuts % (Manual) Lymphocytes % (Manual) Monocytes % (Manual) Eosinophils % (Manual) Seg Neutrophils # Man Lymphocytes # (Manual) Monocytes # (Manual) Eosinophils # (Manual) Basophils # (Manual) APTT ABG pH ABG pO2 94.4 H ABG HCO3 28.9 H ABG Base Excess ABG Hemoglobin Oxyhemoglobin 94.8 L Sodium Creatinine Glucose POC Glucose 114 H 111 H Lactic Acid Calcium AST ALT Alkaline Phosphatase Albumin Urine WBC (Auto) Salicylates Acetaminophen 07/21/19 07/21/19 07/21/19 00:42 03:40 05:56 WBC RBC Hgb Hct MCV MCH MCHC RDW Seg Neuts % (Manual) Lymphocytes % (Manual) Monocytes % (Manual) Eosinophils % (Manual) Seg Neutrophils # Man Lymphocytes # (Manual) Monocytes # (Manual) Eosinophils # (Manual) Basophils # (Manual) APTT ABG pH ABG pO2 ABG HCO3 29.0 H ABG Base Excess 3.6 H ABG Hemoglobin 9.9 L Oxyhemoglobin 94.7 L Sodium Creatinine Glucose POC Glucose 109 H 125 H Lactic Acid Calcium AST ALT Alkaline Phosphatase Albumin Urine WBC (Auto) Salicylates Acetaminophen 07/21/19 07/22/19 07/22/19 23:37 05:10 08:58 WBC 17.0 H RBC Hgb 9.3 L Hct MCV 64 L MCH 19 L MCHC RDW 17.8 H Seg Neuts % (Manual) Lymphocytes % (Manual) Monocytes % (Manual) Eosinophils % (Manual) Seg Neutrophils # Man Lymphocytes # (Manual) Monocytes # (Manual) Eosinophils # (Manual) Basophils # (Manual) APTT ABG pH ABG pO2 120.1 H ABG HCO3 30.2 H ABG Base Excess 5.0 H ABG Hemoglobin 8.3 L Oxyhemoglobin Sodium Creatinine Glucose POC Glucose 120 H Lactic Acid Calcium AST ALT Alkaline Phosphatase Albumin Urine WBC (Auto) Salicylates Acetaminophen 07/22/19 07/22/19 07/23/19 08:58 12:11 04:00 WBC RBC Hgb Hct MCV MCH MCHC RDW Seg Neuts % (Manual) Lymphocytes % (Manual) Monocytes % (Manual) Eosinophils % (Manual) Seg Neutrophils # Man Lymphocytes # (Manual) Monocytes # (Manual) Eosinophils # (Manual) Basophils # (Manual) APTT ABG pH ABG pO2 126.1 H ABG HCO3 28.9 H ABG Base Excess 4.2 H ABG Hemoglobin 7.8 L Oxyhemoglobin Sodium Creatinine 0.5 L Glucose 123 H POC Glucose 112 H Lactic Acid Calcium AST 66 H ALT Alkaline Phosphatase Albumin 3.4 L Urine WBC (Auto) Salicylates Acetaminophen 07/23/19 07/23/19 07/23/19 05:48 05:48 23:36 WBC 16.2 H RBC Hgb 9.0 L Hct MCV 65 L MCH 19 L MCHC 29 L RDW 18.0 H Seg Neuts % (Manual) Lymphocytes % (Manual) Monocytes % (Manual) 9.0 H Eosinophils % (Manual) 6.0 H Seg Neutrophils # Man 11.3 H Lymphocytes # (Manual) Monocytes # (Manual) 1.5 H Eosinophils # (Manual) 1.0 H Basophils # (Manual) APTT ABG pH ABG pO2 ABG HCO3 ABG Base Excess ABG Hemoglobin Oxyhemoglobin Sodium 146 H Creatinine 0.5 L Glucose POC Glucose 108 H Lactic Acid Calcium AST 68 H ALT 57 H Alkaline Phosphatase Albumin 3.3 L Urine WBC (Auto) Salicylates Acetaminophen 07/24/19 07/24/19 07/24/19 04:19 04:19 04:20 WBC 13.1 H RBC Hgb 8.6 L Hct 28.6 L MCV 65 L MCH 19 L MCHC RDW 17.8 H Seg Neuts % (Manual) Lymphocytes % (Manual) Monocytes % (Manual) Eosinophils % (Manual) Seg Neutrophils # Man Lymphocytes # (Manual) Monocytes # (Manual) Eosinophils # (Manual) Basophils # (Manual) APTT ABG pH 7.453 H ABG pO2 93.2 H ABG HCO3 28.2 H ABG Base Excess 3.9 H ABG Hemoglobin 11.7 L Oxyhemoglobin 94.9 L Sodium Creatinine 0.6 L Glucose 108 H POC Glucose Lactic Acid Calcium AST 51 H ALT Alkaline Phosphatase Albumin 3.2 L Urine WBC (Auto) Salicylates Acetaminophen
--- NOTE | 2019-07-24 10:48 | Progress Note ---
Assessment and Plan 29 y/o female with cardiac arrest, asystole, exact etiology unknown now on vent support. 1. Edema is worse on head CT. Neuro started mannitol. Will start to wean diprovan tomorrow that it is off by Monday and neuro can do another exam. Will monitor serum and urine osms 2. Continue BP meds. 3. Continue supportive care 4. Poor prognosis. CCt 31 minutes. Subjective Date of service: 07/24/19 Principal diagnosis: Anoxic brain injury Interval history: Had to be started on diprovan yesterday secondary to seizures. Mental status is unchanged. Sister at bedside. Started on Mannitol by Neuro. Objective Vital Signs - 12hr 07/23/19 07/24/19 07/24/19 23:00 00:00 00:34 Temperature Pulse Rate 101 H 102 H 101 H Pulse Rate [ Anterior Bilateral Throughout] Pulse Rate [ 101 H From Monitor] Respiratory 24 24 Rate Respiratory Rate [Anterior Bilateral Throughout] Blood Pressure 120/70 114/66 115/69 O2 Sat by Pulse 98 98 98 Oximetry 07/24/19 07/24/19 07/24/19 01:00 02:00 03:00 Temperature Pulse Rate 95 H 100 H 101 H Pulse Rate [ Anterior Bilateral Throughout] Pulse Rate [ From Monitor] Respiratory 24 24 24 Rate Respiratory Rate [Anterior Bilateral Throughout] Blood Pressure 117/64 121/69 121/70 O2 Sat by Pulse 98 99 97 Oximetry 07/24/19 07/24/19 07/24/19 03:05 04:00 04:30 Temperature 101.1 F H Pulse Rate 102 H 98 H Pulse Rate [ 101 H Anterior Bilateral Throughout] Pulse Rate [ 101 H From Monitor] Respiratory 27 H Rate Respiratory 24 Rate [Anterior Bilateral Throughout] Blood Pressure 124/70 114/65 O2 Sat by Pulse 98 98 Oximetry 07/24/19 07/24/19 07/24/19 05:00 06:00 07:00 Temperature Pulse Rate 98 H 100 H 94 H Pulse Rate [ Anterior Bilateral Throughout] Pulse Rate [ From Monitor] Respiratory 24 18 24 Rate Respiratory Rate [Anterior Bilateral Throughout] Blood Pressure 116/70 128/77 136/85 O2 Sat by Pulse 99 98 99 Oximetry 07/24/19 07/24/19 07/24/19 08:00 09:08 09:35 Temperature 101.6 F H Pulse Rate 96 H 105 H 108 H Pulse Rate [ Anterior Bilateral Throughout] Pulse Rate [ 96 H From Monitor] Respiratory 24 Rate Respiratory Rate [Anterior Bilateral Throughout] Blood Pressure 136/81 135/77 128/75 O2 Sat by Pulse 99 98 Oximetry 07/24/19 07/24/19 09:55 10:05 Temperature Pulse Rate 98 H Pulse Rate [ 107 H Anterior Bilateral Throughout] Pulse Rate [ From Monitor] Respiratory Rate Respiratory 24 Rate [Anterior Bilateral Throughout] Blood Pressure 134/79 O2 Sat by Pulse Oximetry Constitutional: comatose Eyes: non-icteric ENT: other (orally intubated and sedated.) Neck: supple Effort: normal Ascultation: Bilateral: diminished breath sounds Percussion: Bilateral: not dull Cardiovascular: regular rate and rhythm Gastrointestinal: normoactive bowel sounds, soft, non-tender Integumentary: normal Neurologic: unable to assess CBC and BMP: 07/24/19 04:19 07/24/19 04:19 ABG, PT/INR, D-dimer: ABG ABG pH 7.453 pH Units (7.350-7.450) H 07/24/19 04:20 ABG pCO2 41.2 mm Hg 07/24/19 04:20 ABG pO2 93.2 mm Hg (80.0-90.0) H 07/24/19 04:20 ABG O2 Saturation 97.5 % (95.0-99.0) 07/24/19 04:20 Abnormal lab findings: Abnormal Labs 07/17/19 07/17/19 07/17/19 15:10 15:51 15:51 WBC 20.6 H RBC 5.66 H Hgb Hct MCV 67 L MCH 20 L MCHC 29 L RDW 18.3 H Seg Neuts % (Manual) 84.0 H Lymphocytes % (Manual) 10.0 L Monocytes % (Manual) Eosinophils % (Manual) Seg Neutrophils # Man 17.3 H Lymphocytes # (Manual) Monocytes # (Manual) Eosinophils # (Manual) Basophils # (Manual) 0.2 H APTT 20.7 L ABG pH 7.147 L* ABG pO2 174.7 H ABG HCO3 ABG Base Excess -4.2 L ABG Hemoglobin 11.0 L Oxyhemoglobin 94.2 L Sodium Creatinine Glucose POC Glucose Lactic Acid Calcium AST ALT Alkaline Phosphatase Albumin Urine WBC (Auto) Salicylates Acetaminophen 07/17/19 07/17/19 07/17/19 15:51 15:51 16:30 WBC RBC Hgb Hct MCV MCH MCHC RDW Seg Neuts % (Manual) Lymphocytes % (Manual) Monocytes % (Manual) Eosinophils % (Manual) Seg Neutrophils # Man Lymphocytes # (Manual) Monocytes # (Manual) Eosinophils # (Manual) Basophils # (Manual) APTT ABG pH ABG pO2 ABG HCO3 ABG Base Excess ABG Hemoglobin Oxyhemoglobin Sodium Creatinine Glucose 302 H POC Glucose Lactic Acid 4.70 H* Calcium 8.1 L AST 104 H ALT 57 H Alkaline Phosphatase 158 H Albumin 3.8 L Urine WBC (Auto) 12.0 H Salicylates Acetaminophen 07/17/19 07/17/19 07/17/19 18:20 18:20 18:20 WBC RBC Hgb Hct MCV MCH MCHC RDW Seg Neuts % (Manual) Lymphocytes % (Manual) Monocytes % (Manual) Eosinophils % (Manual) Seg Neutrophils # Man Lymphocytes # (Manual) Monocytes # (Manual) Eosinophils # (Manual) Basophils # (Manual) APTT ABG pH ABG pO2 ABG HCO3 ABG Base Excess ABG Hemoglobin Oxyhemoglobin Sodium Creatinine Glucose POC Glucose Lactic Acid 2.40 H* Calcium AST ALT Alkaline Phosphatase Albumin Urine WBC (Auto) Salicylates < 0.3 L Acetaminophen < 5.0 L 07/17/19 07/17/19 07/17/19 19:16 22:15 22:26 WBC RBC Hgb Hct MCV MCH MCHC RDW Seg Neuts % (Manual) Lymphocytes % (Manual) Monocytes % (Manual) Eosinophils % (Manual) Seg Neutrophils # Man Lymphocytes # (Manual) Monocytes # (Manual) Eosinophils # (Manual) Basophils # (Manual) APTT ABG pH ABG pO2 104.1 H ABG HCO3 26.7 H ABG Base Excess ABG Hemoglobin 11.1 L Oxyhemoglobin Sodium Creatinine Glucose POC Glucose 136 H Lactic Acid 2.40 H* Calcium AST ALT Alkaline Phosphatase Albumin Urine WBC (Auto) Salicylates Acetaminophen 07/18/19 07/18/19 07/18/19 03:35 03:35 04:28 WBC 21.9 H RBC 5.68 H Hgb Hct MCV 66 L MCH 19 L MCHC RDW 17.7 H Seg Neuts % (Manual) 96.0 H Lymphocytes % (Manual) 4.0 L Monocytes % (Manual) Eosinophils % (Manual) Seg Neutrophils # Man 21.0 H Lymphocytes # (Manual) 0.9 L Monocytes # (Manual) Eosinophils # (Manual) Basophils # (Manual) APTT ABG pH ABG pO2 91.3 H ABG HCO3 29.3 H ABG Base Excess 3.1 H ABG Hemoglobin 10.9 L Oxyhemoglobin 94.9 L Sodium Creatinine Glucose 157 H POC Glucose Lactic Acid Calcium 7.8 L AST 59 H ALT Alkaline Phosphatase Albumin 3.5 L Urine WBC (Auto) Salicylates Acetaminophen 07/18/19 07/18/19 07/19/19 12:04 18:09 00:04 WBC RBC Hgb Hct MCV MCH MCHC RDW Seg Neuts % (Manual) Lymphocytes % (Manual) Monocytes % (Manual) Eosinophils % (Manual) Seg Neutrophils # Man Lymphocytes # (Manual) Monocytes # (Manual) Eosinophils # (Manual) Basophils # (Manual) APTT ABG pH ABG pO2 ABG HCO3 ABG Base Excess ABG Hemoglobin Oxyhemoglobin Sodium Creatinine Glucose POC Glucose 171 H 136 H 120 H Lactic Acid Calcium AST ALT Alkaline Phosphatase Albumin Urine WBC (Auto) Salicylates Acetaminophen 07/19/19 07/19/19 07/19/19 05:00 08:30 12:23 WBC RBC Hgb Hct MCV MCH MCHC RDW Seg Neuts % (Manual) Lymphocytes % (Manual) Monocytes % (Manual) Eosinophils % (Manual) Seg Neutrophils # Man Lymphocytes # (Manual) Monocytes # (Manual) Eosinophils # (Manual) Basophils # (Manual) APTT ABG pH 7.451 H ABG pO2 75.6 L ABG HCO3 28.1 H ABG Base Excess 3.8 H ABG Hemoglobin 11.3 L Oxyhemoglobin 94.6 L Sodium Creatinine Glucose POC Glucose 118 H 131 H Lactic Acid Calcium AST ALT Alkaline Phosphatase Albumin Urine WBC (Auto) Salicylates Acetaminophen 07/20/19 07/20/19 07/20/19 00:21 04:10 18:07 WBC RBC Hgb Hct MCV MCH MCHC RDW Seg Neuts % (Manual) Lymphocytes % (Manual) Monocytes % (Manual) Eosinophils % (Manual) Seg Neutrophils # Man Lymphocytes # (Manual) Monocytes # (Manual) Eosinophils # (Manual) Basophils # (Manual) APTT ABG pH ABG pO2 94.4 H ABG HCO3 28.9 H ABG Base Excess ABG Hemoglobin Oxyhemoglobin 94.8 L Sodium Creatinine Glucose POC Glucose 114 H 111 H Lactic Acid Calcium AST ALT Alkaline Phosphatase Albumin Urine WBC (Auto) Salicylates Acetaminophen 07/21/19 07/21/19 07/21/19 00:42 03:40 05:56 WBC RBC Hgb Hct MCV MCH MCHC RDW Seg Neuts % (Manual) Lymphocytes % (Manual) Monocytes % (Manual) Eosinophils % (Manual) Seg Neutrophils # Man Lymphocytes # (Manual) Monocytes # (Manual) Eosinophils # (Manual) Basophils # (Manual) APTT ABG pH ABG pO2 ABG HCO3 29.0 H ABG Base Excess 3.6 H ABG Hemoglobin 9.9 L Oxyhemoglobin 94.7 L Sodium Creatinine Glucose POC Glucose 109 H 125 H Lactic Acid Calcium AST ALT Alkaline Phosphatase Albumin Urine WBC (Auto) Salicylates Acetaminophen 07/21/19 07/22/19 07/22/19 23:37 05:10 08:58 WBC 17.0 H RBC Hgb 9.3 L Hct MCV 64 L MCH 19 L MCHC RDW 17.8 H Seg Neuts % (Manual) Lymphocytes % (Manual) Monocytes % (Manual) Eosinophils % (Manual) Seg Neutrophils # Man Lymphocytes # (Manual) Monocytes # (Manual) Eosinophils # (Manual) Basophils # (Manual) APTT ABG pH ABG pO2 120.1 H ABG HCO3 30.2 H ABG Base Excess 5.0 H ABG Hemoglobin 8.3 L Oxyhemoglobin Sodium Creatinine Glucose POC Glucose 120 H Lactic Acid Calcium AST ALT Alkaline Phosphatase Albumin Urine WBC (Auto) Salicylates Acetaminophen 07/22/19 07/22/19 07/23/19 08:58 12:11 04:00 WBC RBC Hgb Hct MCV MCH MCHC RDW Seg Neuts % (Manual) Lymphocytes % (Manual) Monocytes % (Manual) Eosinophils % (Manual) Seg Neutrophils # Man Lymphocytes # (Manual) Monocytes # (Manual) Eosinophils # (Manual) Basophils # (Manual) APTT ABG pH ABG pO2 126.1 H ABG HCO3 28.9 H ABG Base Excess 4.2 H ABG Hemoglobin 7.8 L Oxyhemoglobin Sodium Creatinine 0.5 L Glucose 123 H POC Glucose 112 H Lactic Acid Calcium AST 66 H ALT Alkaline Phosphatase Albumin 3.4 L Urine WBC (Auto) Salicylates Acetaminophen 07/23/19 07/23/19 07/23/19 05:48 05:48 23:36 WBC 16.2 H RBC Hgb 9.0 L Hct MCV 65 L MCH 19 L MCHC 29 L RDW 18.0 H Seg Neuts % (Manual) Lymphocytes % (Manual) Monocytes % (Manual) 9.0 H Eosinophils % (Manual) 6.0 H Seg Neutrophils # Man 11.3 H Lymphocytes # (Manual) Monocytes # (Manual) 1.5 H Eosinophils # (Manual) 1.0 H Basophils # (Manual) APTT ABG pH ABG pO2 ABG HCO3 ABG Base Excess ABG Hemoglobin Oxyhemoglobin Sodium 146 H Creatinine 0.5 L Glucose POC Glucose 108 H Lactic Acid Calcium AST 68 H ALT 57 H Alkaline Phosphatase Albumin 3.3 L Urine WBC (Auto) Salicylates Acetaminophen 07/24/19 07/24/19 07/24/19 04:19 04:19 04:20 WBC 13.1 H RBC Hgb 8.6 L Hct 28.6 L MCV 65 L MCH 19 L MCHC RDW 17.8 H Seg Neuts % (Manual) Lymphocytes % (Manual) Monocytes % (Manual) Eosinophils % (Manual) Seg Neutrophils # Man Lymphocytes # (Manual) Monocytes # (Manual) Eosinophils # (Manual) Basophils # (Manual) APTT ABG pH 7.453 H ABG pO2 93.2 H ABG HCO3 28.2 H ABG Base Excess 3.9 H ABG Hemoglobin 11.7 L Oxyhemoglobin 94.9 L Sodium Creatinine 0.6 L Glucose 108 H POC Glucose Lactic Acid Calcium AST 51 H ALT Alkaline Phosphatase Albumin 3.2 L Urine WBC (Auto) Salicylates Acetaminophen
[2019-07-24] MEDS: VALPROATE SODIUM 500 MG in SODIUM CHLORIDE 0.9% 100 ML IV SCH ×2 (12:17→21:37)
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
[2019-07-24] MEDS: ENOXAPARIN 40 MG/0.4 ML INJ SUB-Q SCH (21:38)
[2019-07-25] MEDS: INSULIN LISPRO 100 UNIT/ML SUB-Q SCH ×4 (01:09→17:27)
[2019-07-25] MEDS: IPRATROPIUM/ALBUTEROL SULFATE 3 ML AMPUL.NEB IH SCH ×4 (02:04→21:00)
[2019-07-25] MEDS: LORazepam 2 MG/ML VIAL IV SCH (02:15)
[2019-07-25] MEDS: MANNITOL IV SCH ×3 (06:24→21:20)
[2019-07-25] MEDS: CEFEPIME/NS 2 GM/100 ML 2 GM/100 ML BAG IV SCH ×3 (06:24→21:43)
[2019-07-25] MEDS: metroNIDAZOLE/NS 500 MG/100 ML 500 MG/100 ML BAG IV SCH ×3 (06:24→21:30)
[2019-07-25] MEDS: BUDESONIDE 0.5 MG/2 ML NEBU IH SCH ×2 (08:11→21:00)
[2019-07-25] MEDS: levETIRAcetam 1,500 MG in DEXTROSE 5% IN WATER 100 ML IV SCH ×2 (10:21→22:35)
[2019-07-25] MEDS: NICOTINE 21 MG/24 HR PATCH TD SCH (10:21)
[2019-07-25] MEDS: FAMOTIDINE 20 MG TAB PO SCH ×2 (10:22→21:31)
--- NOTE | 2019-07-25 10:31 | Progress Note ---
Assessment and Plan hypoxic brain injury : severe, poor prognosis, no signs of recovery , sz activity, sympathetic dysfunction, through keppra vpa and prop, prop now increased, unstable\ cont. current management HOB cerebral edema severe, from anoxic brain injury , on mannitol, osmo being checked, cont mannitol rescan CT head joelle family meeting for w/d of care, i dont see pt turning the corner toward recovery BP management i talked to sister of pt, she will discuss w rest of family about pt wishes in these circumstances Subjective Date of service: 07/25/19 Principal diagnosis: Anoxic brain injury Interval history: still having sz like activity on prop, prop was increased and sz stopped, keppra and vpa on board fevers no signs of recovery osmo <300 mannitol on board no family at bedside intubated, not breathing over vent extensor posturing w stim when prop was low and pt was having sz like activity Objective - Exam Narrative Exam: intubated sweating no signs of life or recovery sedated pupils minimal , dolls sluggish no gag + cough no eye open to verbal tactile nox stim no w/d to nox stim off prop, pt starts to sz, R neck arm body no signs of life neck supple - Vital Sign Vital Signs - 12hr 07/24/19 07/24/19 07/25/19 23:00 23:46 00:00 Temperature 105.5 F H Pulse Rate 97 H 97 H 99 H Pulse Rate [ Anterior Bilateral Throughout] Pulse Rate [ 102 H From Monitor] Respiratory 24 24 Rate Respiratory Rate [Anterior Bilateral Throughout] Blood Pressure 143/82 135/83 144/86 O2 Sat by Pulse 99 99 99 Oximetry 07/25/19 07/25/19 07/25/19 01:00 02:00 02:04 Temperature Pulse Rate 102 H 98 H Pulse Rate [ 94 H Anterior Bilateral Throughout] Pulse Rate [ From Monitor] Respiratory 24 24 Rate Respiratory 24 Rate [Anterior Bilateral Throughout] Blood Pressure 155/96 138/77 O2 Sat by Pulse 98 99 Oximetry 07/25/19 07/25/19 07/25/19 03:00 03:53 04:00 Temperature 100.6 F H Pulse Rate 96 H 93 H Pulse Rate [ Anterior Bilateral Throughout] Pulse Rate [ 95 H From Monitor] Respiratory 24 24 Rate Respiratory Rate [Anterior Bilateral Throughout] Blood Pressure 124/76 129/83 O2 Sat by Pulse 99 99 Oximetry 07/25/19 07/25/19 07/25/19 05:00 06:00 07:00 Temperature Pulse Rate 94 H 95 H 94 H Pulse Rate [ Anterior Bilateral Throughout] Pulse Rate [ From Monitor] Respiratory 24 18 24 Rate Respiratory Rate [Anterior Bilateral Throughout] Blood Pressure 129/83 131/84 137/89 O2 Sat by Pulse 99 99 99 Oximetry 07/25/19 07/25/19 07/25/19 08:00 08:10 09:00 Temperature 100.9 F H Pulse Rate 92 H 94 H 97 H Pulse Rate [ 91 H Anterior Bilateral Throughout] Pulse Rate [ From Monitor] Respiratory 21 24 Rate Respiratory 24 Rate [Anterior Bilateral Throughout] Blood Pressure 140/88 140/88 139/88 O2 Sat by Pulse 99 99 96 Oximetry 07/25/19 10:22 Temperature Pulse Rate 100 H Pulse Rate [ Anterior Bilateral Throughout] Pulse Rate [ From Monitor] Respiratory Rate Respiratory Rate [Anterior Bilateral Throughout] Blood Pressure 144/92 O2 Sat by Pulse Oximetry - Laboratory Findings CBC and BMP: 07/24/19 04:19 07/24/19 04:19 Abnormal Lab Findings: Abnormal Labs 07/17/19 07/17/19 07/17/19 15:10 15:51 15:51 WBC 20.6 H RBC 5.66 H Hgb Hct MCV 67 L MCH 20 L MCHC 29 L RDW 18.3 H Seg Neuts % (Manual) 84.0 H Lymphocytes % (Manual) 10.0 L Monocytes % (Manual) Eosinophils % (Manual) Seg Neutrophils # Man 17.3 H Lymphocytes # (Manual) Monocytes # (Manual) Eosinophils # (Manual) Basophils # (Manual) 0.2 H APTT 20.7 L ABG pH 7.147 L* ABG pO2 174.7 H ABG HCO3 ABG Base Excess -4.2 L ABG Hemoglobin 11.0 L Oxyhemoglobin 94.2 L Sodium Creatinine Glucose POC Glucose Lactic Acid Calcium AST ALT Alkaline Phosphatase Albumin Urine WBC (Auto) Salicylates Acetaminophen 07/17/19 07/17/19 07/17/19 15:51 15:51 16:30 WBC RBC Hgb Hct MCV MCH MCHC RDW Seg Neuts % (Manual) Lymphocytes % (Manual) Monocytes % (Manual) Eosinophils % (Manual) Seg Neutrophils # Man Lymphocytes # (Manual) Monocytes # (Manual) Eosinophils # (Manual) Basophils # (Manual) APTT ABG pH ABG pO2 ABG HCO3 ABG Base Excess ABG Hemoglobin Oxyhemoglobin Sodium Creatinine Glucose 302 H POC Glucose Lactic Acid 4.70 H* Calcium 8.1 L AST 104 H ALT 57 H Alkaline Phosphatase 158 H Albumin 3.8 L Urine WBC (Auto) 12.0 H Salicylates Acetaminophen 07/17/19 07/17/19 07/17/19 18:20 18:20 18:20 WBC RBC Hgb Hct MCV MCH MCHC RDW Seg Neuts % (Manual) Lymphocytes % (Manual) Monocytes % (Manual) Eosinophils % (Manual) Seg Neutrophils # Man Lymphocytes # (Manual) Monocytes # (Manual) Eosinophils # (Manual) Basophils # (Manual) APTT ABG pH ABG pO2 ABG HCO3 ABG Base Excess ABG Hemoglobin Oxyhemoglobin Sodium Creatinine Glucose POC Glucose Lactic Acid 2.40 H* Calcium AST ALT Alkaline Phosphatase Albumin Urine WBC (Auto) Salicylates < 0.3 L Acetaminophen < 5.0 L 07/17/19 07/17/19 07/17/19 19:16 22:15 22:26 WBC RBC Hgb Hct MCV MCH MCHC RDW Seg Neuts % (Manual) Lymphocytes % (Manual) Monocytes % (Manual) Eosinophils % (Manual) Seg Neutrophils # Man Lymphocytes # (Manual) Monocytes # (Manual) Eosinophils # (Manual) Basophils # (Manual) APTT ABG pH ABG pO2 104.1 H ABG HCO3 26.7 H ABG Base Excess ABG Hemoglobin 11.1 L Oxyhemoglobin Sodium Creatinine Glucose POC Glucose 136 H Lactic Acid 2.40 H* Calcium AST ALT Alkaline Phosphatase Albumin Urine WBC (Auto) Salicylates Acetaminophen 07/18/19 07/18/19 07/18/19 03:35 03:35 04:28 WBC 21.9 H RBC 5.68 H Hgb Hct MCV 66 L MCH 19 L MCHC RDW 17.7 H Seg Neuts % (Manual) 96.0 H Lymphocytes % (Manual) 4.0 L Monocytes % (Manual) Eosinophils % (Manual) Seg Neutrophils # Man 21.0 H Lymphocytes # (Manual) 0.9 L Monocytes # (Manual) Eosinophils # (Manual) Basophils # (Manual) APTT ABG pH ABG pO2 91.3 H ABG HCO3 29.3 H ABG Base Excess 3.1 H ABG Hemoglobin 10.9 L Oxyhemoglobin 94.9 L Sodium Creatinine Glucose 157 H POC Glucose Lactic Acid Calcium 7.8 L AST 59 H ALT Alkaline Phosphatase Albumin 3.5 L Urine WBC (Auto) Salicylates Acetaminophen 07/18/19 07/18/19 07/19/19 12:04 18:09 00:04 WBC RBC Hgb Hct MCV MCH MCHC RDW Seg Neuts % (Manual) Lymphocytes % (Manual) Monocytes % (Manual) Eosinophils % (Manual) Seg Neutrophils # Man Lymphocytes # (Manual) Monocytes # (Manual) Eosinophils # (Manual) Basophils # (Manual) APTT ABG pH ABG pO2 ABG HCO3 ABG Base Excess ABG Hemoglobin Oxyhemoglobin Sodium Creatinine Glucose POC Glucose 171 H 136 H 120 H Lactic Acid Calcium AST ALT Alkaline Phosphatase Albumin Urine WBC (Auto) Salicylates Acetaminophen 07/19/19 07/19/19 07/19/19 05:00 08:30 12:23 WBC RBC Hgb Hct MCV MCH MCHC RDW Seg Neuts % (Manual) Lymphocytes % (Manual) Monocytes % (Manual) Eosinophils % (Manual) Seg Neutrophils # Man Lymphocytes # (Manual) Monocytes # (Manual) Eosinophils # (Manual) Basophils # (Manual) APTT ABG pH 7.451 H ABG pO2 75.6 L ABG HCO3 28.1 H ABG Base Excess 3.8 H ABG Hemoglobin 11.3 L Oxyhemoglobin 94.6 L Sodium Creatinine Glucose POC Glucose 118 H 131 H Lactic Acid Calcium AST ALT Alkaline Phosphatase Albumin Urine WBC (Auto) Salicylates Acetaminophen 07/20/19 07/20/19 07/20/19 00:21 04:10 18:07 WBC RBC Hgb Hct MCV MCH MCHC RDW Seg Neuts % (Manual) Lymphocytes % (Manual) Monocytes % (Manual) Eosinophils % (Manual) Seg Neutrophils # Man Lymphocytes # (Manual) Monocytes # (Manual) Eosinophils # (Manual) Basophils # (Manual) APTT ABG pH ABG pO2 94.4 H ABG HCO3 28.9 H ABG Base Excess ABG Hemoglobin Oxyhemoglobin 94.8 L Sodium Creatinine Glucose POC Glucose 114 H 111 H Lactic Acid Calcium AST ALT Alkaline Phosphatase Albumin Urine WBC (Auto) Salicylates Acetaminophen 07/21/19 07/21/19 07/21/19 00:42 03:40 05:56 WBC RBC Hgb Hct MCV MCH MCHC RDW Seg Neuts % (Manual) Lymphocytes % (Manual) Monocytes % (Manual) Eosinophils % (Manual) Seg Neutrophils # Man Lymphocytes # (Manual) Monocytes # (Manual) Eosinophils # (Manual) Basophils # (Manual) APTT ABG pH ABG pO2 ABG HCO3 29.0 H ABG Base Excess 3.6 H ABG Hemoglobin 9.9 L Oxyhemoglobin 94.7 L Sodium Creatinine Glucose POC Glucose 109 H 125 H Lactic Acid Calcium AST ALT Alkaline Phosphatase Albumin Urine WBC (Auto) Salicylates Acetaminophen 07/21/19 07/22/19 07/22/19 23:37 05:10 08:58 WBC 17.0 H RBC Hgb 9.3 L Hct MCV 64 L MCH 19 L MCHC RDW 17.8 H Seg Neuts % (Manual) Lymphocytes % (Manual) Monocytes % (Manual) Eosinophils % (Manual) Seg Neutrophils # Man Lymphocytes # (Manual) Monocytes # (Manual) Eosinophils # (Manual) Basophils # (Manual) APTT ABG pH ABG pO2 120.1 H ABG HCO3 30.2 H ABG Base Excess 5.0 H ABG Hemoglobin 8.3 L Oxyhemoglobin Sodium Creatinine Glucose POC Glucose 120 H Lactic Acid Calcium AST ALT Alkaline Phosphatase Albumin Urine WBC (Auto) Salicylates Acetaminophen 07/22/19 07/22/19 07/23/19 08:58 12:11 04:00 WBC RBC Hgb Hct MCV MCH MCHC RDW Seg Neuts % (Manual) Lymphocytes % (Manual) Monocytes % (Manual) Eosinophils % (Manual) Seg Neutrophils # Man Lymphocytes # (Manual) Monocytes # (Manual) Eosinophils # (Manual) Basophils # (Manual) APTT ABG pH ABG pO2 126.1 H ABG HCO3 28.9 H ABG Base Excess 4.2 H ABG Hemoglobin 7.8 L Oxyhemoglobin Sodium Creatinine 0.5 L Glucose 123 H POC Glucose 112 H Lactic Acid Calcium AST 66 H ALT Alkaline Phosphatase Albumin 3.4 L Urine WBC (Auto) Salicylates Acetaminophen 07/23/19 07/23/19 07/23/19 05:48 05:48 23:36 WBC 16.2 H RBC Hgb 9.0 L Hct MCV 65 L MCH 19 L MCHC 29 L RDW 18.0 H Seg Neuts % (Manual) Lymphocytes % (Manual) Monocytes % (Manual) 9.0 H Eosinophils % (Manual) 6.0 H Seg Neutrophils # Man 11.3 H Lymphocytes # (Manual) Monocytes # (Manual) 1.5 H Eosinophils # (Manual) 1.0 H Basophils # (Manual) APTT ABG pH ABG pO2 ABG HCO3 ABG Base Excess ABG Hemoglobin Oxyhemoglobin Sodium 146 H Creatinine 0.5 L Glucose POC Glucose 108 H Lactic Acid Calcium AST 68 H ALT 57 H Alkaline Phosphatase Albumin 3.3 L Urine WBC (Auto) Salicylates Acetaminophen 07/24/19 07/24/19 07/24/19 04:19 04:19 04:20 WBC 13.1 H RBC Hgb 8.6 L Hct 28.6 L MCV 65 L MCH 19 L MCHC RDW 17.8 H Seg Neuts % (Manual) Lymphocytes % (Manual) Monocytes % (Manual) Eosinophils % (Manual) Seg Neutrophils # Man Lymphocytes # (Manual) Monocytes # (Manual) Eosinophils # (Manual) Basophils # (Manual) APTT ABG pH 7.453 H ABG pO2 93.2 H ABG HCO3 28.2 H ABG Base Excess 3.9 H ABG Hemoglobin 11.7 L Oxyhemoglobin 94.9 L Sodium Creatinine 0.6 L Glucose 108 H POC Glucose Lactic Acid Calcium AST 51 H ALT Alkaline Phosphatase Albumin 3.2 L Urine WBC (Auto) Salicylates Acetaminophen
[2019-07-25] MEDS: VALPROATE SODIUM 500 MG in SODIUM CHLORIDE 0.9% 100 ML IV SCH ×2 (10:33→21:55)
--- NOTE | 2019-07-25 10:44 | Progress Note ---
Assessment and Plan 29 y/o female with cardiac arrest, asystole, exact etiology unknown now on vent support. 1. Unable to wean diprovan off. Will discuss with neuro further options. Question if transfer is needed for continuous EEG. Already on 2 other an tiepileptic agents. Also ordered stat chemistry to see serum sodium levels 2. Continue BP meds. 3. Continue supportive care 4. Poor prognosis. CCt 31 minutes. Subjective Date of service: 07/25/19 Principal diagnosis: Anoxic brain injury Interval history: Still seizing. Called by pharmacy this am and I asked that they increase the diprovan to stop seizures. Neurology assessing again today as well. No labs drawn. Objective Vital Signs - 12hr 07/24/19 07/24/19 07/25/19 23:00 23:46 00:00 Temperature 105.5 F H Pulse Rate 97 H 97 H 99 H Pulse Rate [ Anterior Bilateral Throughout] Pulse Rate [ 102 H From Monitor] Respiratory 24 24 Rate Respiratory Rate [Anterior Bilateral Throughout] Blood Pressure 143/82 135/83 144/86 O2 Sat by Pulse 99 99 99 Oximetry 07/25/19 07/25/19 07/25/19 01:00 02:00 02:04 Temperature Pulse Rate 102 H 98 H Pulse Rate [ 94 H Anterior Bilateral Throughout] Pulse Rate [ From Monitor] Respiratory 24 24 Rate Respiratory 24 Rate [Anterior Bilateral Throughout] Blood Pressure 155/96 138/77 O2 Sat by Pulse 98 99 Oximetry 07/25/19 07/25/19 07/25/19 03:00 03:53 04:00 Temperature 100.6 F H Pulse Rate 96 H 93 H Pulse Rate [ Anterior Bilateral Throughout] Pulse Rate [ 95 H From Monitor] Respiratory 24 24 Rate Respiratory Rate [Anterior Bilateral Throughout] Blood Pressure 124/76 129/83 O2 Sat by Pulse 99 99 Oximetry 07/25/19 07/25/19 07/25/19 05:00 06:00 07:00 Temperature Pulse Rate 94 H 95 H 94 H Pulse Rate [ Anterior Bilateral Throughout] Pulse Rate [ From Monitor] Respiratory 24 18 24 Rate Respiratory Rate [Anterior Bilateral Throughout] Blood Pressure 129/83 131/84 137/89 O2 Sat by Pulse 99 99 99 Oximetry 07/25/19 07/25/19 07/25/19 08:00 08:10 09:00 Temperature 100.9 F H Pulse Rate 92 H 94 H 97 H Pulse Rate [ 91 H Anterior Bilateral Throughout] Pulse Rate [ From Monitor] Respiratory 21 24 Rate Respiratory 24 Rate [Anterior Bilateral Throughout] Blood Pressure 140/88 140/88 139/88 O2 Sat by Pulse 99 99 96 Oximetry 07/25/19 10:22 Temperature Pulse Rate 100 H Pulse Rate [ Anterior Bilateral Throughout] Pulse Rate [ From Monitor] Respiratory Rate Respiratory Rate [Anterior Bilateral Throughout] Blood Pressure 144/92 O2 Sat by Pulse Oximetry Constitutional: comatose Eyes: non-icteric ENT: other (orally intubated and sedated.) Neck: supple Effort: normal Ascultation: Bilateral: diminished breath sounds Percussion: Bilateral: not dull Cardiovascular: regular rate and rhythm Gastrointestinal: normoactive bowel sounds, soft, non-tender Integumentary: normal Neurologic: unable to assess CBC and BMP: 07/24/19 04:19 07/24/19 04:19 ABG, PT/INR, D-dimer: ABG ABG pH 7.453 pH Units (7.350-7.450) H 07/24/19 04:20 ABG pCO2 41.2 mm Hg 07/24/19 04:20 ABG pO2 93.2 mm Hg (80.0-90.0) H 07/24/19 04:20 ABG O2 Saturation 97.5 % (95.0-99.0) 07/24/19 04:20 Abnormal lab findings: Abnormal Labs 07/17/19 07/17/19 07/17/19 15:10 15:51 15:51 WBC 20.6 H RBC 5.66 H Hgb Hct MCV 67 L MCH 20 L MCHC 29 L RDW 18.3 H Seg Neuts % (Manual) 84.0 H Lymphocytes % (Manual) 10.0 L Monocytes % (Manual) Eosinophils % (Manual) Seg Neutrophils # Man 17.3 H Lymphocytes # (Manual) Monocytes # (Manual) Eosinophils # (Manual) Basophils # (Manual) 0.2 H APTT 20.7 L ABG pH 7.147 L* ABG pO2 174.7 H ABG HCO3 ABG Base Excess -4.2 L ABG Hemoglobin 11.0 L Oxyhemoglobin 94.2 L Sodium Creatinine Glucose POC Glucose Lactic Acid Calcium AST ALT Alkaline Phosphatase Albumin Urine WBC (Auto) Salicylates Acetaminophen 07/17/19 07/17/19 07/17/19 15:51 15:51 16:30 WBC RBC Hgb Hct MCV MCH MCHC RDW Seg Neuts % (Manual) Lymphocytes % (Manual) Monocytes % (Manual) Eosinophils % (Manual) Seg Neutrophils # Man Lymphocytes # (Manual) Monocytes # (Manual) Eosinophils # (Manual) Basophils # (Manual) APTT ABG pH ABG pO2 ABG HCO3 ABG Base Excess ABG Hemoglobin Oxyhemoglobin Sodium Creatinine Glucose 302 H POC Glucose Lactic Acid 4.70 H* Calcium 8.1 L AST 104 H ALT 57 H Alkaline Phosphatase 158 H Albumin 3.8 L Urine WBC (Auto) 12.0 H Salicylates Acetaminophen 07/17/19 07/17/19 07/17/19 18:20 18:20 18:20 WBC RBC Hgb Hct MCV MCH MCHC RDW Seg Neuts % (Manual) Lymphocytes % (Manual) Monocytes % (Manual) Eosinophils % (Manual) Seg Neutrophils # Man Lymphocytes # (Manual) Monocytes # (Manual) Eosinophils # (Manual) Basophils # (Manual) APTT ABG pH ABG pO2 ABG HCO3 ABG Base Excess ABG Hemoglobin Oxyhemoglobin Sodium Creatinine Glucose POC Glucose Lactic Acid 2.40 H* Calcium AST ALT Alkaline Phosphatase Albumin Urine WBC (Auto) Salicylates < 0.3 L Acetaminophen < 5.0 L 07/17/19 07/17/19 07/17/19 19:16 22:15 22:26 WBC RBC Hgb Hct MCV MCH MCHC RDW Seg Neuts % (Manual) Lymphocytes % (Manual) Monocytes % (Manual) Eosinophils % (Manual) Seg Neutrophils # Man Lymphocytes # (Manual) Monocytes # (Manual) Eosinophils # (Manual) Basophils # (Manual) APTT ABG pH ABG pO2 104.1 H ABG HCO3 26.7 H ABG Base Excess ABG Hemoglobin 11.1 L Oxyhemoglobin Sodium Creatinine Glucose POC Glucose 136 H Lactic Acid 2.40 H* Calcium AST ALT Alkaline Phosphatase Albumin Urine WBC (Auto) Salicylates Acetaminophen 07/18/19 07/18/19 07/18/19 03:35 03:35 04:28 WBC 21.9 H RBC 5.68 H Hgb Hct MCV 66 L MCH 19 L MCHC RDW 17.7 H Seg Neuts % (Manual) 96.0 H Lymphocytes % (Manual) 4.0 L Monocytes % (Manual) Eosinophils % (Manual) Seg Neutrophils # Man 21.0 H Lymphocytes # (Manual) 0.9 L Monocytes # (Manual) Eosinophils # (Manual) Basophils # (Manual) APTT ABG pH ABG pO2 91.3 H ABG HCO3 29.3 H ABG Base Excess 3.1 H ABG Hemoglobin 10.9 L Oxyhemoglobin 94.9 L Sodium Creatinine Glucose 157 H POC Glucose Lactic Acid Calcium 7.8 L AST 59 H ALT Alkaline Phosphatase Albumin 3.5 L Urine WBC (Auto) Salicylates Acetaminophen 07/18/19 07/18/19 07/19/19 12:04 18:09 00:04 WBC RBC Hgb Hct MCV MCH MCHC RDW Seg Neuts % (Manual) Lymphocytes % (Manual) Monocytes % (Manual) Eosinophils % (Manual) Seg Neutrophils # Man Lymphocytes # (Manual) Monocytes # (Manual) Eosinophils # (Manual) Basophils # (Manual) APTT ABG pH ABG pO2 ABG HCO3 ABG Base Excess ABG Hemoglobin Oxyhemoglobin Sodium Creatinine Glucose POC Glucose 171 H 136 H 120 H Lactic Acid Calcium AST ALT Alkaline Phosphatase Albumin Urine WBC (Auto) Salicylates Acetaminophen 07/19/19 07/19/19 07/19/19 05:00 08:30 12:23 WBC RBC Hgb Hct MCV MCH MCHC RDW Seg Neuts % (Manual) Lymphocytes % (Manual) Monocytes % (Manual) Eosinophils % (Manual) Seg Neutrophils # Man Lymphocytes # (Manual) Monocytes # (Manual) Eosinophils # (Manual) Basophils # (Manual) APTT ABG pH 7.451 H ABG pO2 75.6 L ABG HCO3 28.1 H ABG Base Excess 3.8 H ABG Hemoglobin 11.3 L Oxyhemoglobin 94.6 L Sodium Creatinine Glucose POC Glucose 118 H 131 H Lactic Acid Calcium AST ALT Alkaline Phosphatase Albumin Urine WBC (Auto) Salicylates Acetaminophen 07/20/19 07/20/19 07/20/19 00:21 04:10 18:07 WBC RBC Hgb Hct MCV MCH MCHC RDW Seg Neuts % (Manual) Lymphocytes % (Manual) Monocytes % (Manual) Eosinophils % (Manual) Seg Neutrophils # Man Lymphocytes # (Manual) Monocytes # (Manual) Eosinophils # (Manual) Basophils # (Manual) APTT ABG pH ABG pO2 94.4 H ABG HCO3 28.9 H ABG Base Excess ABG Hemoglobin Oxyhemoglobin 94.8 L Sodium Creatinine Glucose POC Glucose 114 H 111 H Lactic Acid Calcium AST ALT Alkaline Phosphatase Albumin Urine WBC (Auto) Salicylates Acetaminophen 07/21/19 07/21/19 07/21/19 00:42 03:40 05:56 WBC RBC Hgb Hct MCV MCH MCHC RDW Seg Neuts % (Manual) Lymphocytes % (Manual) Monocytes % (Manual) Eosinophils % (Manual) Seg Neutrophils # Man Lymphocytes # (Manual) Monocytes # (Manual) Eosinophils # (Manual) Basophils # (Manual) APTT ABG pH ABG pO2 ABG HCO3 29.0 H ABG Base Excess 3.6 H ABG Hemoglobin 9.9 L Oxyhemoglobin 94.7 L Sodium Creatinine Glucose POC Glucose 109 H 125 H Lactic Acid Calcium AST ALT Alkaline Phosphatase Albumin Urine WBC (Auto) Salicylates Acetaminophen 07/21/19 07/22/19 07/22/19 23:37 05:10 08:58 WBC 17.0 H RBC Hgb 9.3 L Hct MCV 64 L MCH 19 L MCHC RDW 17.8 H Seg Neuts % (Manual) Lymphocytes % (Manual) Monocytes % (Manual) Eosinophils % (Manual) Seg Neutrophils # Man Lymphocytes # (Manual) Monocytes # (Manual) Eosinophils # (Manual) Basophils # (Manual) APTT ABG pH ABG pO2 120.1 H ABG HCO3 30.2 H ABG Base Excess 5.0 H ABG Hemoglobin 8.3 L Oxyhemoglobin Sodium Creatinine Glucose POC Glucose 120 H Lactic Acid Calcium AST ALT Alkaline Phosphatase Albumin Urine WBC (Auto) Salicylates Acetaminophen 07/22/19 07/22/19 07/23/19 08:58 12:11 04:00 WBC RBC Hgb Hct MCV MCH MCHC RDW Seg Neuts % (Manual) Lymphocytes % (Manual) Monocytes % (Manual) Eosinophils % (Manual) Seg Neutrophils # Man Lymphocytes # (Manual) Monocytes # (Manual) Eosinophils # (Manual) Basophils # (Manual) APTT ABG pH ABG pO2 126.1 H ABG HCO3 28.9 H ABG Base Excess 4.2 H ABG Hemoglobin 7.8 L Oxyhemoglobin Sodium Creatinine 0.5 L Glucose 123 H POC Glucose 112 H Lactic Acid Calcium AST 66 H ALT Alkaline Phosphatase Albumin 3.4 L Urine WBC (Auto) Salicylates Acetaminophen 07/23/19 07/23/19 07/23/19 05:48 05:48 23:36 WBC 16.2 H RBC Hgb 9.0 L Hct MCV 65 L MCH 19 L MCHC 29 L RDW 18.0 H Seg Neuts % (Manual) Lymphocytes % (Manual) Monocytes % (Manual) 9.0 H Eosinophils % (Manual) 6.0 H Seg Neutrophils # Man 11.3 H Lymphocytes # (Manual) Monocytes # (Manual) 1.5 H Eosinophils # (Manual) 1.0 H Basophils # (Manual) APTT ABG pH ABG pO2 ABG HCO3 ABG Base Excess ABG Hemoglobin Oxyhemoglobin Sodium 146 H Creatinine 0.5 L Glucose POC Glucose 108 H Lactic Acid Calcium AST 68 H ALT 57 H Alkaline Phosphatase Albumin 3.3 L Urine WBC (Auto) Salicylates Acetaminophen 07/24/19 07/24/19 07/24/19 04:19 04:19 04:20 WBC 13.1 H RBC Hgb 8.6 L Hct 28.6 L MCV 65 L MCH 19 L MCHC RDW 17.8 H Seg Neuts % (Manual) Lymphocytes % (Manual) Monocytes % (Manual) Eosinophils % (Manual) Seg Neutrophils # Man Lymphocytes # (Manual) Monocytes # (Manual) Eosinophils # (Manual) Basophils # (Manual) APTT ABG pH 7.453 H ABG pO2 93.2 H ABG HCO3 28.2 H ABG Base Excess 3.9 H ABG Hemoglobin 11.7 L Oxyhemoglobin 94.9 L Sodium Creatinine 0.6 L Glucose 108 H POC Glucose Lactic Acid Calcium AST 51 H ALT Alkaline Phosphatase Albumin 3.2 L Urine WBC (Auto) Salicylates Acetaminophen
--- NOTE | 2019-07-25 10:44 | Progress Note ---
Assessment and Plan Cultures: 07/17/2019 blood culture: No growth 07/17/2019 urine culture: No growth 07/17/2019 light growth of respiratory kate 07/21/2019 blood culture: 05/25 CoNS Influenza PCR: negative A/P: 29/F with morbid obesity admitted following cardiorespiratory arrest: #Sepsis: Persistent fever and leukocytosis, probably from bilateral pneumonia. Central fevers are also possible given her concern for anoxic brain injury. Meningitis / DIRECTOR LEARNING process cannot be ruled out but seems less likely, patient is over the weight limit for MRI brain, given her morbid obesity, will need LP under fluoroscopic guidance when able to. Meanwhile, will treat empirically anyways with abx. #Acute respiratory failure secondary to pneumonia/?aspiration: On the vent. #Acute encephalopathy: anoxic brain injury with worsening cerebral edema. Neurology following #Morbid obesity: Severe. #CoNS bacteremia: likely contaminant. Recs: Follow up WBC in AM. Continue IV cefepime 2 g every 8 hours and IV Flagyl, Day 4 of 5-7 days and then will stop. High likelihood of central fever given worsening cerebral edema from anoxic brain injury Overall prognosis seems poor Paulina Le MD, FACP [facility] ([facility] C: [phone] O: [phone] F: [phone] Subjective Date of service: 07/25/19 Principal diagnosis: Anoxic brain injury Interval history: Low grade fevers. Discussed with RN, temp of 105 was an erroneous entry. Remains unresponsive on the vent. Objective - Exam Narrative Exam: Physical Exam: Constitutional: unresponsive, intubated. Morbid obesity Head, Ears, Nose: Normocephalic, atraumatic. External ears, nose normal Eyes: Conjunctivae/corneas clear. No icterus. No ptosis. Neck: intubated Oral: intubated Cardiovascular: S1, S2 normal Respiratory: Good air entry, clear to auscultation bilaterally GI: Soft, non-tender; bowel sounds normal. No peritoneal signs Musculoskeletal: No pedal edema, no cyanosis. Skin: No rash or abscess Hem/Lymphatic: No palpable cervical or supraclavicular nodes. No lymphangitis Psych: no agitation Neurological: unresponsive, intubated, on vent. - Constitutional Vitals: Vital Signs Temp Pulse Resp BP Pulse Ox 100.9 F H 100 H 24 144/92 96 03/05/20 08:00 07/25/19 10:22 07/25/19 09:00 07/25/19 10:22 07/25/19 09:00 Temperature -Last 24 Hours Temperature 100.9 F Temperature 100.6 F Temperature 105.5 F Temperature 100.2 F Temperature 98.9 F Temperature 101.6 F - Labs CBC & Chem 7: 07/24/19 04:19 07/24/19 04:19
[2019-07-25] MEDS: VALSARTAN 40 MG TAB PO SCH ×2 (12:33→21:31)
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
[2019-07-25 15:25] LABS: BUN/Creatinine Ratio 20; Blood Urea Nitrogen 12 mg/dL (7-17); Calcium 9.2 mg/dL (8.4-10.2); Hemolysis Index 0
[2019-07-25] MEDS: ENOXAPARIN 40 MG/0.4 ML INJ SUB-Q SCH (21:31)
[2019-07-26] MEDS: INSULIN LISPRO 100 UNIT/ML SUB-Q SCH ×2 (00:14→05:24)
--- NOTE | 2019-07-26 01:44 | Cat Scan Report ---
Head CT without intravenous contrast INDICATION: Respiratory failure COMPARISON: 07/23/2019 FINDINGS: The ventricles are unchanged in size and position. No hemorrhage or extra-axial fluid colle ction. Diffuse cerebral edema is again seen with sulcal effacement and loss of contreras-white matter inte rface. This appearance is unchanged. There is no midline shift in the ventricles are unchanged in siz e sinus opacification is unchanged.. No focal infarct seen. No skull fracture identified. NG tube and endotracheal tubes are in place. IMPRESSION: Diffuse cerebral edema appears unchanged. Automated exposure control was utilized to diminish radiation dose Signer Name: Rich Dotson MD Signed: 07/26/2019 1:40 AM Workstation Name: [id number]
[2019-07-26] MEDS: IPRATROPIUM/ALBUTEROL SULFATE 3 ML AMPUL.NEB IH SCH ×2 (05:00→09:03)
[2019-07-26] MEDS: metroNIDAZOLE/NS 500 MG/100 ML 500 MG/100 ML BAG IV SCH (05:27)
[2019-07-26] MEDS: CEFEPIME/NS 2 GM/100 ML 2 GM/100 ML BAG IV SCH (05:27)
[2019-07-26] MEDS: MANNITOL IV SCH (05:37)
[2019-07-26 05:49] LABS: ABG Base Excess 3.2 mmol/L (-2.0-3.0); ABG HCO3 27.2 mmol/L (20.0-26.0); ABG Methemoglobin 0.5 % (0.0-1.5); ABG Oxygen Saturation 99.4 % (95.0-99.0); ABG PH 7.462 pH Units (7.350-7.450); ABG PO2 229.5 mm Hg (80.0-90.0)
[2019-07-26 07:31] LABS: Basophils # (Auto) 0.1 K/mm3 (0.0-0.1); Basophils % (Auto) 0.8 % (0.0-1.8); Eosinophils # (Auto) 0.5 K/mm3 (0.0-0.4); Lymphocytes # (Auto) 1.3 K/mm3 (1.2-5.4); Lymphocytes % (Auto) 11.1 % (13.4-35.0); Mean Corpuscular HGB Conc 30 % (30-34); Monocytes # (Auto) 1.1 K/mm3 (0.0-0.8); Platelet Count 291 K/mm3 (140-440); Red Blood Count 4.39 M/mm3 (3.65-5.03); Red Cell Distribution Width 17.9 % (13.2-15.2)
[2019-07-26 07:36] LABS: Hematocrit 28.5 % (30.3-42.9); Hemoglobin 8.5 gm/dl (10.1-14.3); Mean Corpuscular Volume 65 fl (79-97)
--- NOTE | 2019-07-26 07:52 | Progress Note ---
Assessment and Plan coma: seizures: hypoxic brain injury: diffuse cerebral edema: prolonged down time cardiac arrest s/p acls, unstable no signs of recovery x 7+ days seizures are getting worse, prop increased keppra and vpa on board cefepime very poor prognosis I dont feel increasing pts seizure meds will make a difference, pt is actively dying, seizing through propofol is a terrible sign family meeting today : if they want to cont care; then will increase VPA 1000 bid, cont keppra 1500 bid and cont mannitol 35 q8 as long as kidneys can abigail. , following osmo q8 I feel medical treatments from here forward will not make a difference to pts quality of life, pt will likely not show signs of purposeful recovery Subjective Date of service: 07/26/19 Principal diagnosis: Anoxic brain injury Interval history: CT head unchanged cerebral edema, no bleed no herniation pt prop was increased d/t increasing seizures keppra and vpa on board cefepime coag neg staph blood venous cx ===== SYDNI STEVENSON Female : 1990 MedRec# [id number] 07/25/19 08:55 (created 07/25/19 09:02) - Nurse Note by CHARLES PEÑA Acct Num: [id number] : 1990 Patient Age: 29 Patient actively seizing. Propofol increased to 15mcg/kg/min Initialized on 07/25/19 09:02 - END OF NOTE ==== no signs of recovery mannitol on board osmo pending, last yest 291 family meeting at 930 to discuss care goals wbc 11 temp 99.8 no posturing Objective - Exam Narrative Exam: intubated sedated on prop coma pupils sluggish dolls sluggish no gag + cough tone down to all limbs no extra movements neck supple no w/d to pain - Vital Sign Vital Signs - 12hr 07/25/19 07/25/19 07/25/19 20:00 21:00 21:01 Temperature 100.7 F H Pulse Rate 97 H 94 H 93 H Pulse Rate [ Anterior Bilateral Throughout] Respiratory 24 24 Rate Respiratory Rate [Anterior Bilateral Throughout] Blood Pressure 115/67 109/60 109/60 O2 Sat by Pulse 99 96 97 Oximetry 07/25/19 07/25/19 07/25/19 21:04 22:00 23:00 Temperature Pulse Rate 94 H 94 H Pulse Rate [ 95 H Anterior Bilateral Throughout] Respiratory 24 24 Rate Respiratory 24 Rate [Anterior Bilateral Throughout] Blood Pressure 113/63 108/63 O2 Sat by Pulse 96 97 Oximetry 07/25/19 07/25/19 07/26/19 23:32 23:39 00:00 Temperature 98.9 F Pulse Rate 92 H 92 H Pulse Rate [ Anterior Bilateral Throughout] Respiratory 24 23 Rate Respiratory Rate [Anterior Bilateral Throughout] Blood Pressure 103/55 113/61 O2 Sat by Pulse 97 97 Oximetry 07/26/19 07/26/19 07/26/19 00:45 01:13 01:40 Temperature Pulse Rate 90 99 H 100 H Pulse Rate [ Anterior Bilateral Throughout] Respiratory 23 Rate Respiratory Rate [Anterior Bilateral Throughout] Blood Pressure 106/58 106/58 122/81 O2 Sat by Pulse 98 99 Oximetry 07/26/19 07/26/19 07/26/19 02:00 03:00 03:19 Temperature 99.8 F H Pulse Rate 96 H 94 H Pulse Rate [ Anterior Bilateral Throughout] Respiratory 24 24 Rate Respiratory Rate [Anterior Bilateral Throughout] Blood Pressure 111/65 110/66 O2 Sat by Pulse 100 100 Oximetry 07/26/19 07/26/19 07/26/19 04:00 04:50 05:00 Temperature Pulse Rate 92 H 93 H 94 H Pulse Rate [ Anterior Bilateral Throughout] Respiratory 24 25 H Rate Respiratory Rate [Anterior Bilateral Throughout] Blood Pressure 104/60 111/66 102/71 O2 Sat by Pulse 100 99 98 Oximetry 07/26/19 07/26/19 05:02 06:00 Temperature Pulse Rate 96 H Pulse Rate [ 94 H Anterior Bilateral Throughout] Respiratory 24 Rate Respiratory 24 Rate [Anterior Bilateral Throughout] Blood Pressure 114/64 O2 Sat by Pulse 100 Oximetry - Laboratory Findings CBC and BMP: 07/26/19 06:53 07/25/19 14:37 Abnormal Lab Findings: Abnormal Labs 07/17/19 07/17/19 07/17/19 15:10 15:51 15:51 WBC 20.6 H RBC 5.66 H Hgb Hct MCV 67 L MCH 20 L MCHC 29 L RDW 18.3 H Lymph % (Auto) Nash % (Auto) Nash # Eos # Seg Neutrophils % Seg Neuts % (Manual) 84.0 H Lymphocytes % (Manual) 10.0 L Monocytes % (Manual) Eosinophils % (Manual) Seg Neutrophils # Seg Neutrophils # Man 17.3 H Lymphocytes # (Manual) Monocytes # (Manual) Eosinophils # (Manual) Basophils # (Manual) 0.2 H APTT 20.7 L ABG pH 7.147 L* ABG pO2 174.7 H ABG HCO3 ABG O2 Saturation ABG Base Excess -4.2 L ABG Hemoglobin 11.0 L Oxyhemoglobin 94.2 L Sodium Creatinine Glucose POC Glucose Lactic Acid Calcium AST ALT Alkaline Phosphatase Albumin Urine WBC (Auto) Salicylates Acetaminophen 07/17/19 07/17/19 07/17/19 15:51 15:51 16:30 WBC RBC Hgb Hct MCV MCH MCHC RDW Lymph % (Auto) Nash % (Auto) Nash # Eos # Seg Neutrophils % Seg Neuts % (Manual) Lymphocytes % (Manual) Monocytes % (Manual) Eosinophils % (Manual) Seg Neutrophils # Seg Neutrophils # Man Lymphocytes # (Manual) Monocytes # (Manual) Eosinophils # (Manual) Basophils # (Manual) APTT ABG pH ABG pO2 ABG HCO3 ABG O2 Saturation ABG Base Excess ABG Hemoglobin Oxyhemoglobin Sodium Creatinine Glucose 302 H POC Glucose Lactic Acid 4.70 H* Calcium 8.1 L AST 104 H ALT 57 H Alkaline Phosphatase 158 H Albumin 3.8 L Urine WBC (Auto) 12.0 H Salicylates Acetaminophen 07/17/19 07/17/19 07/17/19 18:20 18:20 18:20 WBC RBC Hgb Hct MCV MCH MCHC RDW Lymph % (Auto) Nash % (Auto) Nash # Eos # Seg Neutrophils % Seg Neuts % (Manual) Lymphocytes % (Manual) Monocytes % (Manual) Eosinophils % (Manual) Seg Neutrophils # Seg Neutrophils # Man Lymphocytes # (Manual) Monocytes # (Manual) Eosinophils # (Manual) Basophils # (Manual) APTT ABG pH ABG pO2 ABG HCO3 ABG O2 Saturation ABG Base Excess ABG Hemoglobin Oxyhemoglobin Sodium Creatinine Glucose POC Glucose Lactic Acid 2.40 H* Calcium AST ALT Alkaline Phosphatase Albumin Urine WBC (Auto) Salicylates < 0.3 L Acetaminophen < 5.0 L 07/17/19 07/17/19 07/17/19 19:16 22:15 22:26 WBC RBC Hgb Hct MCV MCH MCHC RDW Lymph % (Auto) Nash % (Auto) Nash # Eos # Seg Neutrophils % Seg Neuts % (Manual) Lymphocytes % (Manual) Monocytes % (Manual) Eosinophils % (Manual) Seg Neutrophils # Seg Neutrophils # Man Lymphocytes # (Manual) Monocytes # (Manual) Eosinophils # (Manual) Basophils # (Manual) APTT ABG pH ABG pO2 104.1 H ABG HCO3 26.7 H ABG O2 Saturation ABG Base Excess ABG Hemoglobin 11.1 L Oxyhemoglobin Sodium Creatinine Glucose POC Glucose 136 H Lactic Acid 2.40 H* Calcium AST ALT Alkaline Phosphatase Albumin Urine WBC (Auto) Salicylates Acetaminophen 07/18/19 07/18/19 07/18/19 03:35 03:35 04:28 WBC 21.9 H RBC 5.68 H Hgb Hct MCV 66 L MCH 19 L MCHC RDW 17.7 H Lymph % (Auto) Nash % (Auto) Nash # Eos # Seg Neutrophils % Seg Neuts % (Manual) 96.0 H Lymphocytes % (Manual) 4.0 L Monocytes % (Manual) Eosinophils % (Manual) Seg Neutrophils # Seg Neutrophils # Man 21.0 H Lymphocytes # (Manual) 0.9 L Monocytes # (Manual) Eosinophils # (Manual) Basophils # (Manual) APTT ABG pH ABG pO2 91.3 H ABG HCO3 29.3 H ABG O2 Saturation ABG Base Excess 3.1 H ABG Hemoglobin 10.9 L Oxyhemoglobin 94.9 L Sodium Creatinine Glucose 157 H POC Glucose Lactic Acid Calcium 7.8 L AST 59 H ALT Alkaline Phosphatase Albumin 3.5 L Urine WBC (Auto) Salicylates Acetaminophen 07/18/19 07/18/19 07/19/19 12:04 18:09 00:04 WBC RBC Hgb Hct MCV MCH MCHC RDW Lymph % (Auto) Nash % (Auto) Nash # Eos # Seg Neutrophils % Seg Neuts % (Manual) Lymphocytes % (Manual) Monocytes % (Manual) Eosinophils % (Manual) Seg Neutrophils # Seg Neutrophils # Man Lymphocytes # (Manual) Monocytes # (Manual) Eosinophils # (Manual) Basophils # (Manual) APTT ABG pH ABG pO2 ABG HCO3 ABG O2 Saturation ABG Base Excess ABG Hemoglobin Oxyhemoglobin Sodium Creatinine Glucose POC Glucose 171 H 136 H 120 H Lactic Acid Calcium AST ALT Alkaline Phosphatase Albumin Urine WBC (Auto) Salicylates Acetaminophen 07/19/19 07/19/19 07/19/19 05:00 08:30 12:23 WBC RBC Hgb Hct MCV MCH MCHC RDW Lymph % (Auto) Nash % (Auto) Nash # Eos # Seg Neutrophils % Seg Neuts % (Manual) Lymphocytes % (Manual) Monocytes % (Manual) Eosinophils % (Manual) Seg Neutrophils # Seg Neutrophils # Man Lymphocytes # (Manual) Monocytes # (Manual) Eosinophils # (Manual) Basophils # (Manual) APTT ABG pH 7.451 H ABG pO2 75.6 L ABG HCO3 28.1 H ABG O2 Saturation ABG Base Excess 3.8 H ABG Hemoglobin 11.3 L Oxyhemoglobin 94.6 L Sodium Creatinine Glucose POC Glucose 118 H 131 H Lactic Acid Calcium AST ALT Alkaline Phosphatase Albumin Urine WBC (Auto) Salicylates Acetaminophen 07/20/19 07/20/19 07/20/19 00:21 04:10 18:07 WBC RBC Hgb Hct MCV MCH MCHC RDW Lymph % (Auto) Nash % (Auto) Nash # Eos # Seg Neutrophils % Seg Neuts % (Manual) Lymphocytes % (Manual) Monocytes % (Manual) Eosinophils % (Manual) Seg Neutrophils # Seg Neutrophils # Man Lymphocytes # (Manual) Monocytes # (Manual) Eosinophils # (Manual) Basophils # (Manual) APTT ABG pH ABG pO2 94.4 H ABG HCO3 28.9 H ABG O2 Saturation ABG Base Excess ABG Hemoglobin Oxyhemoglobin 94.8 L Sodium Creatinine Glucose POC Glucose 114 H 111 H Lactic Acid Calcium AST ALT Alkaline Phosphatase Albumin Urine WBC (Auto) Salicylates Acetaminophen 07/21/19 07/21/19 07/21/19 00:42 03:40 05:56 WBC RBC Hgb Hct MCV MCH MCHC RDW Lymph % (Auto) Nash % (Auto) Nash # Eos # Seg Neutrophils % Seg Neuts % (Manual) Lymphocytes % (Manual) Monocytes % (Manual) Eosinophils % (Manual) Seg Neutrophils # Seg Neutrophils # Man Lymphocytes # (Manual) Monocytes # (Manual) Eosinophils # (Manual) Basophils # (Manual) APTT ABG pH ABG pO2 ABG HCO3 29.0 H ABG O2 Saturation ABG Base Excess 3.6 H ABG Hemoglobin 9.9 L Oxyhemoglobin 94.7 L Sodium Creatinine Glucose POC Glucose 109 H 125 H Lactic Acid Calcium AST ALT Alkaline Phosphatase Albumin Urine WBC (Auto) Salicylates Acetaminophen 07/21/19 07/22/19 07/22/19 23:37 05:10 08:58 WBC 17.0 H RBC Hgb 9.3 L Hct MCV 64 L MCH 19 L MCHC RDW 17.8 H Lymph % (Auto) Nash % (Auto) Nash # Eos # Seg Neutrophils % Seg Neuts % (Manual) Lymphocytes % (Manual) Monocytes % (Manual) Eosinophils % (Manual) Seg Neutrophils # Seg Neutrophils # Man Lymphocytes # (Manual) Monocytes # (Manual) Eosinophils # (Manual) Basophils # (Manual) APTT ABG pH ABG pO2 120.1 H ABG HCO3 30.2 H ABG O2 Saturation ABG Base Excess 5.0 H ABG Hemoglobin 8.3 L Oxyhemoglobin Sodium Creatinine Glucose POC Glucose 120 H Lactic Acid Calcium AST ALT Alkaline Phosphatase Albumin Urine WBC (Auto) Salicylates Acetaminophen 07/22/19 07/22/19 07/23/19 08:58 12:11 04:00 WBC RBC Hgb Hct MCV MCH MCHC RDW Lymph % (Auto) Nash % (Auto) Nash # Eos # Seg Neutrophils % Seg Neuts % (Manual) Lymphocytes % (Manual) Monocytes % (Manual) Eosinophils % (Manual) Seg Neutrophils # Seg Neutrophils # Man Lymphocytes # (Manual) Monocytes # (Manual) Eosinophils # (Manual) Basophils # (Manual) APTT ABG pH ABG pO2 126.1 H ABG HCO3 28.9 H ABG O2 Saturation ABG Base Excess 4.2 H ABG Hemoglobin 7.8 L Oxyhemoglobin Sodium Creatinine 0.5 L Glucose 123 H POC Glucose 112 H Lactic Acid Calcium AST 66 H ALT Alkaline Phosphatase Albumin 3.4 L Urine WBC (Auto) Salicylates Acetaminophen 07/23/19 07/23/19 07/23/19 05:48 05:48 23:36 WBC 16.2 H RBC Hgb 9.0 L Hct MCV 65 L MCH 19 L MCHC 29 L RDW 18.0 H Lymph % (Auto) Nash % (Auto) Nash # Eos # Seg Neutrophils % Seg Neuts % (Manual) Lymphocytes % (Manual) Monocytes % (Manual) 9.0 H Eosinophils % (Manual) 6.0 H Seg Neutrophils # Seg Neutrophils # Man 11.3 H Lymphocytes # (Manual) Monocytes # (Manual) 1.5 H Eosinophils # (Manual) 1.0 H Basophils # (Manual) APTT ABG pH ABG pO2 ABG HCO3 ABG O2 Saturation ABG Base Excess ABG Hemoglobin Oxyhemoglobin Sodium 146 H Creatinine 0.5 L Glucose POC Glucose 108 H Lactic Acid Calcium AST 68 H ALT 57 H Alkaline Phosphatase Albumin 3.3 L Urine WBC (Auto) Salicylates Acetaminophen 07/24/19 07/24/19 07/24/19 04:19 04:19 04:20 WBC 13.1 H RBC Hgb 8.6 L Hct 28.6 L MCV 65 L MCH 19 L MCHC RDW 17.8 H Lymph % (Auto) Nash % (Auto) Nash # Eos # Seg Neutrophils % Seg Neuts % (Manual) Lymphocytes % (Manual) Monocytes % (Manual) Eosinophils % (Manual) Seg Neutrophils # Seg Neutrophils # Man Lymphocytes # (Manual) Monocytes # (Manual) Eosinophils # (Manual) Basophils # (Manual) APTT ABG pH 7.453 H ABG pO2 93.2 H ABG HCO3 28.2 H ABG O2 Saturation ABG Base Excess 3.9 H ABG Hemoglobin 11.7 L Oxyhemoglobin 94.9 L Sodium Creatinine 0.6 L Glucose 108 H POC Glucose Lactic Acid Calcium AST 51 H ALT Alkaline Phosphatase Albumin 3.2 L Urine WBC (Auto) Salicylates Acetaminophen 07/25/19 07/26/19 07/26/19 14:37 05:03 05:23 WBC RBC Hgb Hct MCV MCH MCHC RDW Lymph % (Auto) Nash % (Auto) Nash # Eos # Seg Neutrophils % Seg Neuts % (Manual) Lymphocytes % (Manual) Monocytes % (Manual) Eosinophils % (Manual) Seg Neutrophils # Seg Neutrophils # Man Lymphocytes # (Manual) Monocytes # (Manual) Eosinophils # (Manual) Basophils # (Manual) APTT ABG pH 7.462 H ABG pO2 229.5 H ABG HCO3 27.2 H ABG O2 Saturation 99.4 H ABG Base Excess 3.2 H ABG Hemoglobin 8.7 L Oxyhemoglobin Sodium Creatinine 0.6 L Glucose 101 H POC Glucose 110 H Lactic Acid Calcium AST ALT Alkaline Phosphatase Albumin Urine WBC (Auto) Salicylates Acetaminophen 07/26/19 06:53 WBC 11.8 H RBC Hgb 8.5 L Hct 28.5 L MCV 65 L MCH 19 L MCHC RDW 17.9 H Lymph % (Auto) 11.1 L Nash % (Auto) 9.0 H Nash # 1.1 H Eos # 0.5 H Seg Neutrophils % 75.1 H Seg Neuts % (Manual) Lymphocytes % (Manual) Monocytes % (Manual) Eosinophils % (Manual) Seg Neutrophils # 8.9 H Seg Neutrophils # Man Lymphocytes # (Manual) Monocytes # (Manual) Eosinophils # (Manual) Basophils # (Manual) APTT ABG pH ABG pO2 ABG HCO3 ABG O2 Saturation ABG Base Excess ABG Hemoglobin Oxyhemoglobin Sodium Creatinine Glucose POC Glucose Lactic Acid Calcium AST ALT Alkaline Phosphatase Albumin Urine WBC (Auto) Salicylates Acetaminophen
[2019-07-26 07:56] LABS: Alanine Aminotransferase 42 units/L (7-56); Albumin 3.2 g/dL (3.9-5); BUN/Creatinine Ratio 28; Blood Urea Nitrogen 17 mg/dL (7-17); Calcium 8.9 mg/dL (8.4-10.2); Hemolysis Index 2
[2019-07-26 07:59] LABS: Bilirubin,Direct < 0.2 mg/dL (0-0.2)
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
[2019-07-26] MEDS: BUDESONIDE 0.5 MG/2 ML NEBU IH SCH (09:03)
[2019-07-26] MEDS ORDERED: GLYCOPYRROLATE 0.4 MG/2 ML INJ IV PRN (10:08)
[2019-07-26] MEDS ORDERED: MORPHINE 2 MG/1 ML INJ IV PRN ×2 (10:08)
[2019-07-26] MEDS ORDERED: LORazepam 2 MG/ML VIAL IV PRN (10:08)
--- NOTE | 2019-07-26 10:15 | Event Note ---
Date: 07/26/19 Family meeting held this am. Patient remains in Status despite Diprovan and 3 other antiepileptic meds. Family is in agreement with comfort measures, AND and withdrawal of care. Will keep antiepileptics going for comfort measures.
[2019-07-26] MEDS ORDERED: fentaNYL DRIP Premix 2,000 MCG/100 ML BAG IV SCH (11:00)
[2019-07-26] MEDS: VALPROATE SODIUM 500 MG in SODIUM CHLORIDE 0.9% 100 ML IV SCH (11:19)
[2019-07-26] MEDS: levETIRAcetam 1,500 MG in DEXTROSE 5% IN WATER 100 ML IV SCH (11:19)
[2019-07-26 12:42] VITALS: BP 97/50
--- NOTE | 2019-07-26 13:00 | Event Note ---
Date: 07/26/19 Withdrawal of care done. ID will sign off.
--- NOTE | 2019-07-26 14:00 | Event Note ---
Date: 07/26/19 Family requested DNR and withdraw care Pronounced at 12:54pm
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
== END 2019-07-26 16:50 | DRG 870 ==
LOC: ED 13:53 → CC1 18:51
PROVIDERS: ADMIT Internal Medicine; ATTEND Internal Medicine
PROC: 4A033R1 Measurement of Arterial Saturation, Peripheral, Percutaneous Approach (ICD-10-PCS; principal; 2019-07-17)
PROC: 5A1955Z Respiratory Ventilation, Greater than 96 Consecutive Hours (ICD-10-PCS; 2019-07-19)
PROC: 0BH17EZ Insertion of Endotracheal Airway into Trachea, Via Natural or Artificial Opening (ICD-10-PCS; 2019-07-19)
PROC: 05HY33Z Insertion of Infusion Device into Upper Vein, Percutaneous Approach (ICD-10-PCS; 2019-07-25)
DX: A41.9 Sepsis, unspecified organism (principal); J44.1 Chronic obstructive pulmonary disease with (acute) exacerbation; J69.0 Pneumonitis due to inhalation of food and vomit; I46.9 Cardiac arrest, cause unspecified; I10 Essential (primary) hypertension; F17.210 Nicotine dependence, cigarettes, uncomplicated; E66.01 Morbid (severe) obesity due to excess calories; W06.XXXA Fall from bed, initial encounter; J45.902 Unspecified asthma with status asthmaticus; R73.9 Hyperglycemia, unspecified; G93.1 Anoxic brain damage, not elsewhere classified; J96.01 Acute respiratory failure with hypoxia; G93.40 Encephalopathy, unspecified; G40.89 Other seizures; G93.6 Cerebral edema; Z66 Do not resuscitate; R40.20 Unspecified coma; Z83.3 Family history of diabetes mellitus; Z82.49 Family history of ischemic heart disease and other diseases of the circulatory system; Z68.44 Body mass index [BMI] 60.0-69.9, adult; Z71.3 Dietary counseling and surveillance; Y93.89 Activity, other specified; Y92.098 Other place in other non-institutional residence as the place of occurrence of the external cause; Y99.8 Other external cause status
CPT/HCPCS: 36415; 36600; 70450; 71045; 71275; 72125; 74018; 80048; 80053; 80076; 80307; 80320; 81001; 82140; 82803; 82962; 83036; 83880; 83930; 84484; 85007; 85025; 85027; 85730; 87040; 87070; 87086; 87205; 87400; 93005; 93010; 94002; 94003; 94640; 95819; G0378; 87502; G0480; J0171; J0330; J0360; J0692; J1170; J1265; J1644; J1650; J1885; J1953; J2060; J2150; J2270; J2704; J2930; J3010; J3370; J7030; J7040; J7050; Q9967